=== PATIENT | female | born 1960 | race Caucasian/White ===

== ENCOUNTER 2023-05-06 11:17 | Outpatient (OUT) | payer MEDICARE, SELFPAY ==
[2023-05-06 11:58] LABS: Basophils Absolute Auto 0.1 10^3/uL (0.0-0.1); Basophils Percent Auto 1.5 % (0.2-2.0); Eosinophils Absolute Auto 0.2 10^3/uL (0.0-0.7); Hematocrit 38.2 % (36.0-48.0); Hemoglobin 12.7 g/dL (12.0-16.0); Immature Granulocytes Abs Auto 0.02 10^3/uL (0.00-0.03); Immature Granulocytes Pct Auto 0.3 % (0.0-0.5); Lymphocytes Absolute Auto 2.7 10^3/uL (1.2-3.8); Lymphocytes Percent Auto 34.3 % (20.5-60.0); Mean Corpuscular HGB Conc 33.2 g/dL (29.9-35.2); Mean Corpuscular Hemoglobin 29.8 pg (26.7-34.0); Mean Corpuscular Volume 89.7 fL (81.0-99.0); Monocytes Absolute Auto 0.5 10^3/uL (0.3-0.8); Monocytes Percent Auto 5.9 % (1.7-12.0); Neutrophils Absolute Auto 4.3 10^3/uL (1.4-6.5); Platelet Count 406 10^3/uL (150-450); Red Blood Count 4.26 10^6/uL (4.20-5.40); Red Cell Distribution Width 12.9 % (11.0-15.0); White Blood Count 7.8 10^3/uL (4.0-11.0)
[2023-05-06 13:51] LABS: Alanine Aminotransferase 28 U/L (14-59); Albumin Globulin Ratio 1.1; Albumin Level 4.1 g/dL (3.4-5.0); Alkaline Phosphatase 57 U/L (46-116); Anion Gap 12.1; Aspartate Amino Transferase 17 U/L (15-37); BUN Creatinine Ratio 12.8; Bilirubin Total 0.3 mg/dL (0.2-1.0); Calcium 9.6 mg/dL (8.5-10.1); Carbon Dioxide 29.1 mmol/L (21.0-32.0); Chloride 102 mmol/L (98-107); Chol HDL Ratio 3.7; Cholesterol 186 mg/dL (<=200); Estimated GFR (African America >60 (>=60); Estimated GFR (Non-African Ame >60 (>=60); Globulin 3.9 g/dL; Glucose 111 mg/dL (74-106); HDL Cholesterol 50 mg/dL (40-60); LDL Cholesterol Calculated 109.8 mg/dL; Potassium 4.2 mmol/L (3.5-5.1); Sodium 139 mmol/L (136-145); Triglycerides 131 mg/dL (<=150); VLDL CHOLESTEROL 26.2 mg/dL
== END 2023-05-06 11:18 | disposition home or self-care (01) ==
LOC: LAB 11:23
PROVIDERS: PCP Family Medicine; Visit Provider Family Medicine
DX: Z00.00 Encounter for general adult medical examination without abnormal findings (principal); G45.9 Transient cerebral ischemic attack, unspecified
CPT/HCPCS: 36415; 80053; 80061; 85025

== ENCOUNTER 2023-05-10 10:18 | Outpatient (OUT) | payer MEDICARE, SELFPAY ==
--- NOTE | 2023-05-10 10:21 | MM_ITS ---
Patient: ARLENE JACK Exam Date: 05/10/2023 : 1960 Gender:F Ordering : DR Mariluz Booker M.D. Admission #: [id number] Family : Order #: [id number] CLICK HERE TO VIEW EXAM RADIOLOGY REPORT PROCEDURE: MM TOMOSYNTHESIS SCREENING BI COMPARISON: MG MAMM SCREEN SHIRLEY W CAD, 09/23/2020. MG MAMM SCREEN 3D SHIRLEY CAD, 12/12/2021. INDICATIONS: Screening mammogram Z12.31 Calculator Name NCI Breast Cancer Risk Assessment Tool 5 Year Breast Cancer Risk 1.40% Lifetime Breast Cancer Risk 5.40% Personal Breast Cancer No Personal Ovarian Cancer No Treatments None Family Cancers None LOCATION: [facility] BREAST COMPOSITION: Heterogeneously dense,which may obscure small masses. FINDINGS: DIAGNOSTIC CATEGORY 2--BENIGN FINDING. NO CHANGE FROM COMPARISON. Scattered benign-appearing calcifications are present. Scattered benign-appearing lymph nodes are present. RIGHT BREAST: No significant suspicious finding. Stable micro clip marker upper inner quadrant LEFT BREAST: No significant suspicious finding. RECOMMENDATIONS: ROUTINE MAMMOGRAM AND CLINICAL EVALUATION IN 12 MONTHS. PLEASE NOTE: A NORMAL MAMMOGRAM DOES NOT EXCLUDE THE POSSIBILITY OF BREAST CANCER. A CLINICALLY SUSPICIOUS PALPABLE LUMP SHOULD BE BIOPSIED. Dictated by: Gary Johnson MD on 05/10/2023 at 11:26 Approved by: Gary Johnson MD on 05/10/2023 at 11:27
== END 2023-05-10 10:19 | disposition home or self-care (01) ==
PROVIDERS: PCP Family Medicine; Visit Provider Family Medicine
DX: Z12.31 Encounter for screening mammogram for malignant neoplasm of breast (principal)
CPT/HCPCS: 77063; 77067

== ENCOUNTER 2024-05-08 14:12 | Outpatient (OUT) | payer MEDICARE, SELFPAY ==
[2024-05-08 14:34] LABS: Basophils Absolute Auto 0.1 10^3/uL (0.0-0.1); Basophils Percent Auto 1.3 % (0.2-2.0); Eosinophils Absolute Auto 0.1 10^3/uL (0.0-0.7); Eosinophils Percent Auto 1.7 % (0.9-7.0); Hematocrit 37.5 % (36.0-48.0); Hemoglobin 12.3 g/dL (12.0-16.0); Immature Granulocytes Abs Auto 0.02 10^3/uL (0.00-0.03); Immature Granulocytes Pct Auto 0.3 % (0.0-0.5); Lymphocytes Absolute Auto 2.8 10^3/uL (1.2-3.8); Lymphocytes Percent Auto 39.1 % (20.5-60.0); Mean Corpuscular HGB Conc 32.8 g/dL (29.9-35.2); Mean Corpuscular Hemoglobin 29.4 pg (26.7-34.0); Mean Corpuscular Volume 89.7 fL (81.0-99.0); Mean Platelet Volume 9.3 fL (9.5-13.5); Monocytes Absolute Auto 0.5 10^3/uL (0.3-0.8); Monocytes Percent Auto 6.3 % (1.7-12.0); Neutrophils Absolute Auto 3.7 10^3/uL (1.4-6.5); Neutrophils Percent Auto 51.3 % (43.0-75.0); Platelet Count 335 10^3/uL (150-450); Red Blood Count 4.18 10^6/uL (4.20-5.40); Red Cell Distribution Width 13.2 % (11.0-15.0); White Blood Count 7.1 10^3/uL (4.0-11.0)
[2024-05-08 15:56] LABS: Alanine Aminotransferase 29 U/L (14-59); Albumin Level 3.9 g/dL (3.4-5.0); Alkaline Phosphatase 59 U/L (46-116); Anion Gap 8.4; Aspartate Amino Transferase 16 U/L (15-37); BUN Creatinine Ratio 16.7; Bilirubin Total 0.3 mg/dL (0.2-1.0); Calcium 9.4 mg/dL (8.5-10.1); Carbon Dioxide 30.2 mmol/L (21.0-32.0); Chloride 103 mmol/L (98-107); Estimated GFR (African America >60 (>=60); Estimated GFR (Non-African Ame >60 (>=60); Globulin 3.8 g/dL; Glucose 91 mg/dL (74-106); Potassium 3.6 mmol/L (3.5-5.1); Sodium 138 mmol/L (136-145); Total Protein 7.7 g/dL (6.4-8.2)
[2024-05-08 16:17] LABS: Estimated Average Glucose 114 mg/dL; Glycohemoglobin A1C 5.6 % (4.5-6.2)
== END 2024-05-08 14:13 | disposition home or self-care (01) ==
LOC: LAB 14:15
PROVIDERS: PCP Family Medicine; Visit Provider Family Medicine
DX: Z00.00 Encounter for general adult medical examination without abnormal findings (principal); R73.01 Impaired fasting glucose
CPT/HCPCS: 36415; 80053; 83036; 85025

== ENCOUNTER 2024-05-12 11:11 | Outpatient (OUT) | payer MEDICARE, SELFPAY ==
--- NOTE | 2024-05-12 11:14 | MM_ITS ---
Patient Name: ARLENE JACK MR#: [id number] : 1960 Exam Date: 05/12/2024 Ordering Doctor: DR Mariluz Booker M.D. RADIOLOGY REPORT PROCEDURE: MM TOMOSYNTHESIS SCREENING BI COMPARISON: MM TOMOSYNTHESIS SCREENING BI, 05/10/2023. MG MAMM SCREEN 3D SHIRLEY CAD, 12/12/2021. MG MAMM SCREEN SHIRLEY W CAD, 09/23/2020. MG MAMM SHIRLEY SCRN W CAD DIG, 09/12/2013. INDICATIONS: Screening Calculator Name NCI Breast Cancer Risk Assessment Tool 5 Year Breast Cancer Risk 1.40% Lifetime Breast Cancer Risk 5.20% Personal Breast Cancer No Personal Ovarian Cancer No Treatments None Family Cancers None LOCATION: [facility] BREAST COMPOSITION: The breasts are heterogeneously dense,which may obscure small masses. FINDINGS: DIAGNOSTIC CATEGORY 2--BENIGN FINDING: RIGHT BREAST: No significant suspicious finding. Stable biopsy marker clip. No significant change has occurred. LEFT BREAST: No significant suspicious finding. No significant change has occurred. RECOMMENDATIONS: ROUTINE MAMMOGRAM AND CLINICAL EVALUATION IN 12 MONTHS. PLEASE NOTE: A NORMAL MAMMOGRAM DOES NOT EXCLUDE THE POSSIBILITY OF BREAST CANCER. A CLINICALLY SUSPICIOUS PALPABLE LUMP SHOULD BE BIOPSIED. Dictated by: Narendra Desai M.D. on 05/12/2024 at 15:05 Approved by: Narendra Desai M.D. on 05/12/2024 at 15:09
== END 2024-05-12 11:12 | disposition home or self-care (01) ==
LOC: MAMMO 11:11
PROVIDERS: PCP Family Medicine; Visit Provider Family Medicine
DX: Z12.31 Encounter for screening mammogram for malignant neoplasm of breast (principal)
CPT/HCPCS: 77063; 77067

== ENCOUNTER 2024-11-09 12:24 | Outpatient (OUT) | payer MEDICARE, SELFPAY ==
--- OUTSIDE RECORDS SUMMARY | 2024-11-09 12:34 | XMS_ITS | CCD ---
Author Organization [facility] Care Team Providers Care Sales And Marketing Specialist Name Role Phone JOE, DR MARILUZ Buenrostro Primary Care Unavailable DIAZ, DR MARILUZ Buenrostro Consulting Unavailable DIAZ, DR MARILUZ Buenrostro Attending Unavailable DIAZ, DR MARILUZ Buenrostro Admitting Unavailable JACOBO, DR MCKEON Admitting Unavailable JACOBO, DR MCKEON Consulting Unavailable JACOBO, DR MCKEON Attending Unavailable DIAZ, DR MARILUZ Buenrostro Primary Care Unavailable DIAZ, DR MARILUZ Buenrostro Consulting Unavailable DIAZ, DR MARILUZ Buenrostro Attending Unavailable DIAZ, DR MARILUZ Buenrostro Admitting Unavailable DIAZ, DR MARILUZ Buenrostro Primary Care Unavailable DIAZ, DR MARILUZ Buenrostro Primary Care Unavailable DIAZ, DR MARILUZ Buenrostro Attending Unavailable DIAZ, DR MARILUZ Buenrostro Admitting Unavailable ZIEBER, DR NARENDRA Zelaya Consulting Unavailable DIAZ, DR MARILUZ Buenrostro Consulting Unavailable DIAZ, DR MARILUZ Buenrostro Primary Care Unavailable FLOWER, CLARISSA Consulting Unavailable FLOWER, CLARISSA Attending Unavailable ROSS, CLARISSA Admitting Unavailable JACOBO, DR MCKEON Admitting Unavailable JACOBO, DR MCKEON Consulting Unavailable JACOBO, DR MCKEON Attending Unavailable DIAZ, DR MARILUZ Buenrostro Primary Care Unavailable JACOBO, DR MCKEON Admitting Unavailable JACOBO, DR MCKEON Consulting Unavailable JACOBO, DR MCKEON Attending Unavailable DIAZ, DR MARILUZ Buenrostro Primary Care Unavailable DIAZ, DR MARILUZ Buenrostro Referring Unavailable JACOBO, DR MCKEON Consulting Unavailable JACOBO, DR MCKEON Attending Unavailable DIAZ, DR MARILUZ Buenrostro Primary Care Unavailable JACOBO, DR MCKEON Admitting Unavailable SHELBY MIX Consulting Unavailable Priyank Lloyd Unavailable Mariluz Diaz Unavailable MARILUZ DIAZ Primary Care Physician NORBERTO ANDERSEN Attending Mariluz Abrams MD Primary Care Provider [phone] MONSE CARDENAS Attending Unavailable Allergies Allergy Classification Reported Allergen(s) Allergy Type Date of Onset Reaction(s) Facility (1 source) No Known Medication Allergies; Translations: [No Known Medication Allergies] Propensity to adverse reactions (disorder) [facility] Repository Medications Current Medications Medication Drug Class(es) Dates Sig (Normalized) Sig (Original) azithromycin 250 mg oral tablet (5 sources) Macrolide Antimicrobial Start: 05-03-2023 Azithromycin 250 MG as directed Orally daily for 5 days Apr, Active fluticasone propionate 0.05 mg/actuat metered dose nasal spray (2 sources) Corticosteroid Start: 10-31-2024 fluticasone (Flonase) 50 MCG/ACT nasal spray Indications: ETD (Eustachian tube dysfunction), right 2 sprays on left twice daily. Shake gently. Before first use, prime pump. After use, clean tip and replace cap. 48 g 3 10/31/2024 Active Completed/Discontinued Medications Medication Drug Class(es) Dates Sig (Normalized) Sig (Original) terbinafine 250 mg oral tablet (3 sources) Allylamine Antifungal Start: 05-05-2024 End: 05-08-2024 take 1 tablet by mouth once daily Terbinafine Hcl Discontinued 1 TAB PO Daily May 05, 2024 12:00am May 08, 2024 1:26pm Free[employer]Si tablet Orally Once a day; Note: Source Status: Start; Provider: Joe Buenrostro Start: 06-16-2023 take 1 tablet by rocael th every twenty-four hours Terbinafine HCl 250 MG 1 tablet Orally Once a day for 10 day(s) May, Active Problems Active Problems Problem Classification Problem Date Documented Date Episodic/Chronic Chronic obstructive pulmonary disease and bronchiectasis (2 sources) Bronchitis, not specified as acute or chronic Episodic Diabetes mellitus without complication (2 sources) Hyperglycemia; Translations: [Impaired fasting glucose] 05-08-2024 Episodic Genitourinary symptoms and ill-defined conditions (12 sources) Stress incontinence (female) (male); Translations: [Urge incontinence] Onset: 01-24-2021 Chronic Genitourinary symptoms and ill-defined conditions (3 sources) Retention of urine, unspecified; Translations: [Incomplete emptying of bladder] Onset: 01-24-2021 06-06-2021 Episodic Menopausal disorders (3 sources) Postmenopausal atrophic vaginitis; Translations: [Atrophic vaginitis] Onset: 06-02-2021 Chronic Other circulatory disease (2 sources) Personal history of transient ischemic attack (TIA), and cerebral infarction without residual deficits; Translations: [PERS HX TIA AND CI NO RESID DEFICIT] Onset: 06-02-2021 Episodic Other diseases of bladder and urethra (2 sources) Urethral stricture; Translations: [Unspecified urethral stricture, female] Onset: 08-24-2023 Episodic Other ear and sense organ disorders (2 sources) Mixed conductive AND sensorineural hearing loss; Translations: [Mixed conductive and sensorineural hearing loss, unilateral, right ear with restricted hearing on the contralateral side] 10-31-2024 Chronic Other non-traumatic joint disorders (4 sources) Arthralgia of the lower leg; Translations: [Pain in left knee] Episodic Other screening for suspected conditions (not mental disorders or infectious disease) (8 sources) Encounter for screening mammogram for malignant neoplasm of breast; Translations: [Patient encounter status] Onset: 12-12-2021 Episodic Other upper respiratory infections (1 source) Acute maxillary sinusitis, unspecified Episodic Otitis media and related conditions (2 sources) Dysfunction of right eustachian tube; Translations: [Unspecified Eustachian tube disorder, right ear] 10-31-2024 Episodic Transient cerebral ischemia (7 sources) Transient cerebral ischemia; Translations: [Transient cerebral ischemic attack, unspecified] Chronic Unclassified (1 source) CONTACT W/AND (SUSP) EXPOS COVID-19; Translations: [CONTACT W/AND (SUSP) EXPOS COVID-19] Onset: 01-22-2021 Unclassified (1 source) Patient encounter status 05-08-2020 Past or Other Problems Problem Classification Problem Date Documented Da te Episodic/Chronic Contraceptive and procreative management (1 source) Tubal ligation status; Translations: [TUBAL LIGATION STATUS] Onset: 01-24-2021 Episodic Immunizations and screening for infectious disease (4 sources) Encounter for immunization; Translations: [ENCOUNTER FOR IMMUNIZATION] Onset: 08-15-2021 Episodic Other aftercare (1 source) [facility] (current) use of anticoagulants; Translations: [HEALTH SCIENCE SPECIALIST CURRNT USE ANTICOAGULANTS] Onset: 06-02-2021 Episodic Other diseases of bladder and urethra (1 source) Unspecified urethral stricture, female; Translations: [UNSP URETHRAL STRICTURE FEMALE] Onset: 06-02-2021 Episodic Residual codes; unclassified (1 source) Acquired absence of other specified parts of digestive tract; Translations: [ACQ ABSENCE OTH PART DIGESTV TRACT] Onset: 06-02-2021 Episodic Screening and history of mental health and substance abuse codes (1 source) Personal history of nicotine dependence; Translations: [PERSONAL HISTORY OF NICOTINE DEPEND] Onset: 06-02-2021 Episodic Results Test Name Value Interpretation Reference Range Facility Basophils Auto (Bld) [#/Vol] on 05-08-2024 Basophils (Bld) [#/Vol] 0.1 10 3/uL 0.0-0.1 [facility] Basophils/100 WBC Auto (Bld) on 05-08-2024 Basophils/100 WBC (Bld) 1.3 % 0.2-2.0 [facility] Eosinophils/100 WBC Auto (Bl d)on 05-08-2024 Eosinophils/100 WBC (Bld) 1.7 % 0.9-7.0 [facility] Erythrocyte distribution wid th Auto (RBC) [Ratio]on 05-08-2024 Erythrocyte distribution width (RBC) [Ratio] 13.2 % 11.0-15.0 [facility] Hematocrit Auto (Bld) [Volum e fraction]on 05-08-2024 Hematocrit (Bld) [Volume fraction] 37.5 % 36.0-48.0 [facility] Hemoglobin [Mass/volume] in Bloodon 05-08-2024 Hemoglobin (Bld) [Mass/Vol] 12.3 g/dL 12.0-16.0 [facility] Laboratory - Hematology and Cell countson 05-08-2024 Immature granulocytes/100 WBC (Bld) 0.3 % 0.0-0.5 [facility] Leukocytes [#/volume] correc jailyn for nucleated erythrocytes in Blood by Automated counon 05-08-2024 WBC corrected for nucl RBC Auto (Bld) [#/Vol] 7.1 10 3/uL 4.0-11.0 [facility] Lymphocytes Auto (Bld) [#/Vo l]on 05-08-2024 Lymphocytes (Bld) [#/Vol] 2.8 10 3/uL 1.2-3.8 [facility] Lymphocytes/100 WBC Auto (Bl d)on 05-08-2024 Lymphocytes/100 WBC (Bld) 39.1 % 20.5-60.0 [facility] MCH Auto (RBC) [Entitic mass ]on 05-08-2024 MCH (RBC) [Entitic mass] 29.4 pg 26.7-34.0 [facility] MCHC Auto (RBC) [Mass/Vol]on 05-08-2024 MCHC (RBC) [Mass/Vol] 32.8 g/dL 29.9-35.2 [facility] MCV Auto (RBC) [Entitic vol] on 05-08-2024 MCV (RBC) [Entitic vol] 89.7 fL 81.0-99.0 [facility] Monocytes Auto (Bld) [#/Vol] on 05-08-2024 Monocytes (Bld) [#/Vol] 0.5 10 3/uL 0.3-0.8 [facility] Monocytes/100 WBC Auto (Bld) on 05-08-2024 Monocytes/100 WBC (Bld) 6.3 % 1.7-12.0 [facility] Neutrophils Auto (Bld) [#/Vo l]on 05-08-2024 Neutrophils (Bld) [#/Vol] 3.7 10 3/uL 1.4-6.5 [facility] Neutrophils/100 WBC Auto (Bl d)on 05-08-2024 Neutrophils/100 WBC (Bld) 51.3 % 43.0-75.0 [facility] No Panel Informationon 05-08 Eosinophils # (Auto) 0.1 10 3/uL 0.0-0.7 [facility] Immature Granulocyte # (Auto) 0.02 10 3/uL 0.00-0.03 [facility] Platelet mean volume Auto (B ld) [Entitic vol]on 05-08-2024 Platelet mean volume (Bld) [Entitic vol] 9.3 fL Low 9.5-13.5 [facility] Platelets Auto (Bld) [#/Vol] on 05-08-2024 Platelets (Bld) [#/Vol] 335 10 3/uL 150-450 [facility] RBC Auto (Bld) [#/Vol]on RBC (Bld) [#/Vol] 4.18 10 6/uL Low 4.20-5.40 [facility] Screenson 08-25-2023 Screens [id number] Normal Andre [facility] Ambulatory Visit Summaryon 1 Ambulatory Visit Summary ARLENE JACK :1960 Visit Date:08/24/2023 Ambulatory Visit Instructions Your Diagnosis Unspecified urethral stricture, female Atrophic vaginitis Stress incontinence Tests Performed Urnls Dip Stick Auto w/o Microscopy POC [id number] Your Care Team Attending Physician - STEFFANY ANDERSEN PA-C Primary Care Physician - MARILUZ DIAZ MD This Is Your Medications List [Image Removed: STOP]Stop taking these medications estradiol topical (Estrace Vaginal Cream 0.1 mg/g) Procedures Performed Suspension of bladder (05/29/2021), Cystourethroscopy with dilation of urethral stricture (01/20/2021), Colonoscopy (10/25/2013), Appendectomy, Bilateral tubal ligation, Cholecystectomy. Discharge Vitals Heart Rate (Peripheral) 68 Respiratory Rate 16 Blood Pressure 138/74 Height 157 cm Height 62 in Weight 68.5 kg Weight 150.7 lb BMI 27.79 What to do next You Need to Schedule the Following Appointments Follow Up with STEFFANY ANDERSEN PA-C, URL When: Only if needed Where: [address] [facility] [place] [id number] Medications What How Much When Comments Stop Taking estradiol topical (Estrace Vaginal Cream 0.1 mg/ g) 1 Gram Vaginal Wednesday & Wednesday Test Results Urnls Dip Stick Auto w/o Microscopy POC 81104 (08/24/2023) Bilirubin Urine Dipstick - Negative Blood Urine Dipstick - Negative Glucose Urine Dipstick - Negative Ketones Urine Dipstick - Negative Leukocytes Urine Dipstick - Negative Nitrite Urine Dipstick - Negative Protein Urine Dipstick - Negative Specific Noble Urine Dipstick - 1.015 Urine Appearance Urine Dipstick - Clear Urine Color Urine Dipstick - Yellow Urobilinogen Urine Dipstick - Normal 0.2-1 EU/dl pH Urine Dipstick - 6 Allergies No Known Allergies No Known Medication Allergies Problems Ongoing - Any problem that you are currently receiving treatment for. Atrophic vaginitis Incomplete bladder emptying Screening for malignant neoplasm of colon Stress incontinence TIA (transient ischemic attack) Unspecified urethral stricture, female Urgency of urination Historical - Any problem that you are no longer receiving treatment for. TIA Patient Survey You may receive a survey via text or e-mail asking about your office visit. Please share your experience with us by completing your survey. We appreciate your feedback and thank you for choosing us for your care. Education Materials Urethral Stricture Urethral stricture is narrowing of the tube (urethra) that carries urine from the bladder out of the body. The urethra can become narrow due to scar tissue from an injury or infection. This can make it difficult to pass urine. In women, the urethra opens above the vaginal opening. In men, the urethra opens at the tip of the penis, and the urethra is much longer than it is in women. Because of the length of the male urethra, urethral stricture is much more common in men. This condition is treated with surgery. What are the causes? In both men and women, common causes of urethral stricture include: ? Urinary tract infection (UTI). ? Sexually transmitted infection (STI). ? Use of a tube placed into the urethra to drain urine from the bladder (urinary catheter). ? Urinary tract surgery. In men, common causes of urethral stricture include: ? A severe injury to the pelvis. ? Prostate surgery. ? Injury to the penis. In many cases, the cause of urethral stricture is not known. What increases the risk? You are more likely to develop this condition if you: ? Are male. Men who have had prostate surgery are at risk of developing this condition. ? Use a urinary catheter. ? Have had urinary tract surgery. What are the signs or symptoms? The main symptom of this condition is difficulty passing urine. This may cause decreased urine flow, dribbling, or spraying of urine. Other symptom of this condition may include: ? Frequent UTIs. ? Blood in the urine. ? Pain when urinating. ? Swelling of the penis in men. ? Inability to pass urine (urinary obstruction). How is this diagnosed? This condition may be diagnosed based on: ? Your medical history and a physical exam. ? Urine tests to check for infection or bleeding. ? X-rays. ? Ultrasound. ? Retrograde urethrogram. This is a type of test in which dye is injected into the urethra and then an X-ray is taken. ? Urethroscopy. This is when a thin tube with a light and camera on the end (urethroscope) is used to look at the urethra. How is this treated? This condition is treated with surgery. The type of surgery that you have depends on the severity of your condition. You may have: ? Urethral dilation. In this procedure, the narrow part of the urethra is stretched open (dilated) with dilating instruments or a small balloon. ? Urethrotomy. In this procedure, a urethro (more content not included)... Normal [facility] Patient Educationon 08-24-20 Patient Education Urology Urethral Stricture Urethral stricture is narrowing of the tube (urethra) that carries urine from the bladder out of the body. The urethra can become narrow due to scar tissue from an injury or infection. This can make it difficult to pass urine. In women, the urethra opens above the vaginal opening. In men, the urethra opens at the tip of the penis, and the urethra is much longer than it is in women. Because of the length of the male urethra, urethral stricture is much more common in men. This condition is treated with surgery. What are the causes? In both men and women, common causes of urethral stricture include: ? Urinary tract infection (UTI). ? Sexually transmitted infection (STI). ? Use of a tube placed into the urethra to drain urine from the bladder (urinary catheter). ? Urinary tract surgery. In men, common causes of urethral stricture include: ? A severe injury to the pelvis. ? Prostate surgery. ? Injury to the penis. In many cases, the cause of urethral stricture is not known. What increases the risk? You are more likely to develop this condition if you: ? Are male. Men who have had prostate surgery are at risk of developing this condition. ? Use a urinary catheter. ? Have had urinary tract surgery. What are the signs or symptoms? The main symptom of this condition is difficulty passing urine. This may cause decreased urine flow, dribbling, or spraying of urine. Other symptom of this condition may include: ? Frequent UTIs. ? Blood in the urine. ? Pain when urinating. ? Swelling of the penis in men. ? Inability to pass urine (urinary obstruction). How is this diagnosed? This condition may be diagnosed based on: ? Your medical history and a physical exam. ? Urine tests to check for infection or bleeding. ? X-rays. ? Ultrasound. ? Retrograde urethrogram. This is a type of test in which dye is injected into the urethra and then an X-ray is taken. ? Urethroscopy. This is when a thin tube with a light and camera on the end (urethroscope) is used to look at the urethra. How is this treated? This condition is treated with surgery. The type of surgery that you have depends on the severity of your condition. You may have: ? Urethral dilation. In this procedure, the narrow part of the urethra is stretched open (dilated) with dilating instruments or a small balloon. ? Urethrotomy. In this procedure, a urethroscope is placed into the urethra, and the narrow part of the urethra is cut open with a surgical blade inserted through the urethroscope. ? Open surgery. In this procedure, an incision is made in the urethra, the narrow part is removed, and the urethra is reconstructed. Follow these instructions at home: ? Take dkvi-ntg-nfbysbv and prescription medicines only as told by your health care provider. ? If you were prescribed an antibiotic medicine, take it as told by your health care provider. Do not stop taking the antibiotic even if you start to feel better. ? Drink enough fluid to keep your urine pale yellow. ? Keep all follow-up visits as told by your health care provider. This is important. Contact a health care provider if: ? You have signs of a urinary tract infection, such as: ? Frequent urination or passing small amounts of urine frequently. ? Needing to urinate urgently. ? Pain or burning with urination. ? Urine that smells bad or unusual. ? Cloudy urine. ? Pain in the lower abdomen or back. ? Trouble urinating. ? Blood in the urine. ? Vomiting or being less hungry than normal. ? Diarrhea or abdominal pain. ? Vaginal discharge, if you are female. ? Your symptoms are getting worse instead of better. Get help right away if: ? You cannot pass urine. ? You have a fever. ? You have swelling, bruising, or discoloration of your genital area. This includes the penis, scrotum, and inner thighs for men, and the outer genital organs (vulva) and inner thighs for women. ? You develop swelling in your legs. ? You have difficulty breathing. Summary ? Urethral stricture is narrowing of the tube (urethra) that carries urine from the bladder out of the body. The urethra can become narrow due to scar tissue from an injury or infection. ? This condition can make it difficult to pass urine. ? This condition is treated with surgery. The type of surgery that you have depends on the severity of your condition. ? Contact a health care provider if your symptoms get worse or you have signs of a urinary tract infection. This information is not intended to replace advice given to you by your health care provider. Make sure you discuss any questions you have with your health care provider. Document Revised: 08/18/2022 Document Reviewed: 08/18/2022 [email or web address] Patient Education ? 2022 [employer]. [facility] Urology Office/Clinic Noteon 08-24-2023 Urology Office/Clinic Note Chief Complaint 18m f/u HPI Staff PRW pt 9m Previous DX: Incomplete Bladder Emptying, Stress Incontinence, Urethral Stricture, Atrophic Vaginitis & Urgency *Estrace Cream 3x/wk- pt no longer taking, states she wasn't sure why she was taking it to begin with, and also due to cost. Denies leaking since sling surgery in 2020. Denies UTI since last encounter. Occasional weak, smaller, double voids first thing in the morning. Improves as day goes on. Concentrates to try and empty fully. Denies any further urinary concerns at this time. PVR 12ml History of Present Illness staff HPI reviewed and agree. Review of Systems PHQ Score Initial Depression Screen Score: 0 no fever, chills, malaise, myalgia. no rash/lesions. no chest pain, palpitations, or SOB. no abdominal pain, nausea, vomiting. no unilateral calf swelling, redness, pain Physical Exam Vitals & Measurements HR: 68(Peripheral) RR: 16 BP: 138/74 HT: 62 in HT: 157 cm WT: 68.5 kg WT: 150.7 lb BMI: 27.79 General: nontoxic, NAD Mouth: moist mucosa Lungs: normal respiratory effort Cardio: regular rate, good distal perfusion Abdomen: nondistended, no suprapubic distention or tenderness, no CVA tenderness Neurologic: Grossly normal Skin: No rashes or suspicious lesions Assessment/Plan Dr. Jacobo pt. 1. Unspecified urethral stricture, female (N35.92: Unspecified urethral stricture, female) S/P UD 01/20/21 and 05/29/21, Pt does not want to repeat w/o general anesthesia. BBS 9. Pt reports frequency, start/stop in the mornings but it does get better throughout the day. Not bothersome to patient. PVR 08/13/2021 199mL, after double void PVR 78mL. 11/13/2021 36mL after double void 08/24/2023 12mL Educated patient to call if symptoms become more bothersome to discuss dilation treatment in the future. 2. Atrophic vaginitis (N95.2: Postmenopausal atrophic vaginitis) No hx frequent UTIs. UA today negative for blood or infection. Pt has discontinued using estrogen cream but no UTIs recently. no dysperunia. Continue cranberry, probiotics, and D-Mannose to reduce risk of UTIs. 3. Stress incontinence (N39.3: Stress incontinence (female) (male)) S/P sling placement 05/29/21. sx have resolved. Follow up if needed. Pt understands and agrees with plan. Follow-up With When Contact Information STEFFANY ANDERSEN PA-C, URL Only if needed [address] [place] [address] [phone] Additional Instructions: Patient Education Urethral Stricture Documentation recorded by the buffy Queen accurately reflects the services(s) I performed and decisions made by me. Authenticated by Steffany Andersen PA-C on 08/24/2023 11:50:55. IAshely, personally scribed for Steffany Andersen PA-C on 08/24/2023 11:35:47. . Problem List/Past Medical History Ongoing Atrophic vaginitis Incomplete bladder emptying Screening for malignant neoplasm of colon Stress incontinence TIA (transient ischemic attack) Unspecified urethral stricture, female Urgency of urination Historical TIA Procedure/Surgical History Suspension of bladder (05/29/2021), Cystourethroscopy with dilation of urethral stricture (01/20/2021), Colonoscopy (10/25/2013), Appendectomy, Bilateral tubal ligation, Cholecystectomy. Medications Estrace Vaginal Cream 0.1 mg/g, 1 gm, Vaginal, MonFri, 5 refills, Not taking Allergies No Known Allergies No Known Medication Allergies Social History Alcohol - Denies Alcohol Use, 05/08/2020 Substance Abuse - Denies Substance Abuse, 05/08/2020 Tobacco - Denies Tobacco Use, 06/06/2021 Former smoker, quit more than 30 days ago Tobacco Use:. Never Smokeless Tobacco Use:. Cigarettes, Household tobacco concerns: No. Yes, 08/24/2023 Family History Diabetes mellitus type 2: Mother. Heart disease: Mother. Hyperlipidemia: Mother. Hypertension: Mother. Primary malignant neoplasm of bone: Father. Primary malignant neoplasm of colon: Father. Primary malignant neoplasm of prostate: Father. Stroke: Mother. Immunizations Vaccine Date Status SARS-CoV-2 (COVID-19) mRNA-1273 vaccine 08/15/2021 Recorded SARS-CoV-2 (COVID-19) mRNA-1273 vaccine 11/20/2020 Recorded SARS-CoV-2 (COVID-19) mRNA-1273 vaccine 11/11/2020 Recorded SARS-CoV-2 (COVID-19) mRNA-1273 vaccine 10/23/2020 Recorded SARS-CoV-2 (COVID-19) mRNA-1273 vaccine 10/22/2020 Recorded influenza virus vaccine, inactivated 09/07/2018 Recorded Lab Results Ambulatory Point of Care Results Bilirubin Urine Dipstick: Negative (08/24/23 10:55:00) Blood Urine Dipstick: Negative (08/24/23 10:55:00) Glucose Urine Dipstick: Negative (08/24/23 10:55:00) Ketones Urine Dipstick: Negative (08/24/23 10:55:00) Leukocytes Urine Dipstick: Negative (08/24/23 10:55:00) Nitrite Urine Dipstick: Negative (08/24/23 10:55:00) Protein Urine Dipstick: Negative (08/24/23 10:55:00) Specific Noble Urine Dipstick: (more content not included)... Normal [facility] Comment on above: Result Comment: Elec tronically Signed By: STEFFANY ANDERSEN PA-C\.br\Date and Time Signed: 08/24/23 11:51 EDT\.br\Electronically Co-Signed By: Ashely Queen\.nimesh\Date and Time Co-Signed: 08/24/23 11:36 EDT MG MAMM SCREEN 3D SHIRLEY CADon 12-12-2021 MG MAMM SCREEN 3D SHIRLEY CAD Patient: ARLENE JACK Exam Date: 12/12/2021 : 1960 Gender:F Ordering : DR MARILUZ DIAZ M.D. Admission #: [id number] Family : Order #: [id number] CLICK HERE TO VIEW EXAM RADIOLOGY REPORT PROCEDURE: MAMMOGRAM SCREENING 3D BILATERAL CAD COMPARISON: MG MAMM SCREEN SHIRLEY W CAD, 09/23/2020. MG MAMM RT DIAG FU, 09/13/2019. INDICATIONS: Screening mammography Calculator Name NCI Breast Cancer Risk Assessment Tool 5 Year Breast Cancer Risk 1.30% Lifetime Breast Cancer Risk 5.70% Personal Breast Cancer No Personal Ovarian Cancer No Treatments None Family Cancers None LOCATION: [facility] BREAST COMPOSITION: Heterogeneously dense,which may obscure small masses. FINDINGS: DIAGNOSTIC CATEGORY 2--BENIGN FINDING: RIGHT BREAST: No significant suspicious finding. Stable biopsy marker clip within the upper inner quadrant, central breast. No significant change has occurred. LEFT BREAST: No significant suspicious finding. No significant change has occurred. RECOMMENDATIONS: ROUTINE MAMMOGRAM AND CLINICAL EVALUATION IN 12 MONTHS. PLEASE NOTE: A NORMAL MAMMOGRAM DOES NOT EXCLUDE THE POSSIBILITY OF BREAST CANCER. A CLINICALLY SUSPICIOUS PALPABLE LUMP SHOULD BE BIOPSIED. Dictated by: Narendra Desai M.D. on 12/12/2021 at 13:00 Approved by: Narendra Desai M.D. on 12/12/2021 at 13:[address] [facility] CBC AUTO DIFFon 12-11-2021 BASO # 0.1 103/ul Normal 0.0-0.[address] [facility] Comment on above: Performed By: #### C BC #### [facility] [address] [address] [address] Chasity Gonzalez Basophils/100 WBC (Bld) 1.4 % Normal 0.2-2.0 [facility] Comment on above: Performed By: #### C BC #### [facility] [address] [address] [address] Chasity Gonzalez EO # 0.1 103/ul Normal 0.0-0.[address] [facility] Comment on above: Performed By: #### C BC #### [facility] [address] [place] [address] Dr. Chasity Gonzalez Eosinophils/100 WBC (Bld) 1.9 % Normal 0.9-7.0 [facility] Comment on above: Performed By: #### C BC #### [facility] [address] [place] [address] Dr. Chasity Gonzalez Erythrocyte distribution width (RBC) [Ratio] 12.6 % Normal 11.0-15.0 [facility] Comment on above: Performed By: #### C BC #### [facility] [address] [place] [address] Dr. Chasity Gonzalez Hematocrit (Bld) [Volume fraction] 40.7 % Normal 36.0-48.0 [facility] Comment on above: Performed By: #### C BC #### [facility] [address] [place] [address] Dr. Chasity Gonzalez Hemoglobin (Bld) [Mass/Vol] 13.3 g/dL Normal 12.0-16.0 [facility] Comment on above: Performed By: #### C BC #### [facility] [address] [place] [address] Dr. Chasity Gonzalez IG # 0.01 10e3/ul Normal 0.00-0.[address] [facility] Comment on above: Performed By: #### C BC #### [facility] [address] [place] [address] Dr. Chasity Gonzalez IG % 0.2 % Normal 0.0-0.[address] [facility] Comment on above: Performed By: #### C BC #### [facility] [address] [place] [address] Dr. Chasity Gonzalez LYMPH # 2.5 103/ul Normal 1.2-3.[address] [facility] Comment on above: Performed By: #### C BC #### [facility] [address] [place] [address] Dr. Chasity Gonzalez Lymphocytes/100 WBC (Bld) 44.3 % Normal 20.5-60.0 [facility] Comment on above: Performed By: #### C BC #### [facility] [address] [place] [address] Dr. Chasity Gonzalez MANUAL DIFF REQ NO Normal [facility] Comment on above: Performed By: #### C BC #### [facility] [address] [place] [address] Dr. Chasity Gonzalez MCH (RBC) [Entitic mass] 29.0 pg Normal 26.7-34.0 [facility] Comment on above: Performed By: #### C BC #### [facility] [address] [place] [address] Dr. Chasity Gonzalez MCHC (RBC) [Mass/Vol] 32.7 g/dL Normal 29.9-35.2 [facility] Comment on above: Performed By: #### C BC #### [facility] [address] [place] [address] Dr. Chasity Gonzalez MCV (RBC) [Entitic vol] 88.9 fL Normal 81.0-99.0 [facility] Comment on above: Performed By: #### C BC #### [facility] [address] [place] [address] Dr. Chasity Gonzalez MONO # 0.3 103/ul Normal 0.3-0.8 [facility] Comment on above: Performed By: #### C BC #### [facility] [address] [place] [address] Dr. Chasity Gonzalez Monocytes/100 WBC (Bld) 5.8 % Normal 1.7-12.0 [facility] Comment on above: Performed By: #### C BC #### [facility] [address] [place] [address] Dr. Chasity Gonzalez NEUT # 2.6 103/ul Normal 1.4-6.5 [facility] Comment on above: Performed By: #### C BC #### [facility] [address] [place] [address] Dr. Chasity Gonzalez Neutrophils/100 WBC (Bld) 46.4 % Normal 43.0-75.0 [facility] Comment on above: Performed By: #### C BC #### [facility] [address] [address] [address] Chasity Gonzalez Platelet mean volume (Bld) [Entitic vol] 9.3 fL Critically low 9.5-13.5 [facility] Comment on above: Performed By: #### C BC #### [facility] [address] [address] [address] Chasity Gonzalez PLT 345 103/ul Normal 150-450 [facility] Comment on above: Performed By: #### C BC #### [facility] [address] [address] [address] Chasity Gonzalez RBC 4.58 106/ul Normal 4.20-5.40 [facility] Comment on above: Performed By: #### C BC #### [facility] [address] [address] [address] Chasity Gonzalez WBC 5.7 103/ul Normal 4.0-11.0 [facility] Comment on above: Performed By: #### C BC #### [facility] [address] [address] [address] Chasity Gonzalez GLYCOHEMOGLOBIN A1Con 2021 ADA RECOMMENDATION ADA THERAPEUTIC TARG ET 6.0 - 7.0 ACTION SUGGESTED > 7.0 Normal [facility] Comment on above: Performed By: #### A 1C #### [facility] [address] [address] [address] Chasity Gonzalez Glucose [Mass/Vol] 123 mg/dL Normal [facility] Comment on above: Performed By: #### A 1C #### [facility] [address] [address] [address] Chasity Gonzalez HbA1c (Bld) [Mass fraction] 5.9 % Normal <=6.0 [facility] Comment on above: Performed By: #### A 1C #### [facility] [address] [place] [address] Dr. Chasity Gonzalez LIPID PROFILEon 12-11-2021 CHOL-HDL RATIO NORM SEE BELOW Normal [facility] Comment on above: Result Comment: 3.3 - 4.4 LOW RISK 4.4 - 7.1 AVERAGE RISK 7.1 - 11.0 MODERATE RISK >11.0 HIGH RISK Performed By: #### C MP, LIPID, TSH #### [facility] [address] [address] [address] Chasity Gonzalez Cholesterol [Mass/Vol] 206 mg/dL Critically high <=[address] [facility] Comment on above: Performed By: #### C MP, LIPID, TSH #### [facility] [address] [address] [address] Chasity Gonzalez Cholesterol in HDL [Mass/Vol] 57 mg/dL Normal [facility] Comment on above: Performed By: #### C MP, LIPID, TSH #### [facility] [address] [address] [address] Chasity Gonzalez Cholesterol in LDL [Mass/Vol] 129.6 mg/dL Normal [facility] Comment on above: Performed By: #### C MP, LIPID, TSH #### [facility] [address] [address] [address] Chasity Gonzalez Cholesterol.total/Ch olesterol in HDL [Mass ratio] 3.6 {ratio} Normal [facility] Comment on above: Performed By: #### C MP, LIPID, TSH #### [facility] [address] [address] [address] Chasity Gonzalez HDL NORMAL > or = 60 mg/dl - LO W CARDIOVASCULAR RISK <40 mg/dl - HIGH CARDIOVASCULAR RISK Normal [facility] Comment on above: Performed By: #### C MP, LIPID, TSH #### [facility] [address] [address] [address] Chasity Gonzalez LDL CALC NORMAL SEE BELOW Normal [facility] Comment on above: Result Comment: <100 mg/dl OPTIMAL 100 - 129 mg/dl NEAR OR ABOVE OPTIMAL 130 - 159 mg/dl BORDERLINE HIGH 160 - 189 mg/dl HIGH >190 mg/dl VERY HIGH Performed By: #### C MP, LIPID, TSH #### [facility] [address] [address] [address] Chasity Gonzalez Triglyceride [Mass/Vol] 97 mg/dL Normal <=150 [facility] Comment on above: Performed By: #### C MP, LIPID, TSH #### [facility] [address] [place] [address] Dr. Chasity Gonzalez VLDL CALC 19.4 mg/dL Normal [facility] Comment on above: Performed By: #### C MP, LIPID, TSH #### [facility] [address] [place] [address] Dr. Chasity Gonzalez PROF 14(COMP METB)on 022 Albumin [Mass/Vol] 4.3 g/dL Normal 3.5-5.0 [facility] Comment on above: Performed By: #### C MP, LIPID, TSH #### [facility] [address] [place] [address] Dr. Chasity Gonzalez Albumin/Globulin [Mass ratio] 1.1 {ratio} Normal [facility] Comment on above: Performed By: #### C MP, LIPID, TSH #### [facility] [address] [place] [address] Dr. Chasity Gonzalez ALP [Catalytic activity/Vol] 55 U/L Normal 38-126 [facility] Comment on above: Performed By: #### C MP, LIPID, TSH #### [facility] [address] [place] [address] Dr. Chasity Gonzalez ALT [Catalytic activity/Vol] 28 U/L Normal 9-52 [facility] Comment on above: Performed By: #### C MP, LIPID, TSH #### [facility] [address] [place] [address] Dr. Chasity Gonzalez Anion gap [Moles/Vol] 13.7 mmol/L Normal [facility] Comment on above: Performed By: #### C MP, LIPID, TSH #### [facility] [address] [place] [address] Dr. Chasity Gonzalez AST [Catalytic activity/Vol] 19 U/L Normal 14-36 [facility] Comment on above: Performed By: #### C MP, LIPID, TSH #### [facility] [address] [place] [address] Dr. Chasity Gonzalez Bilirubin [Mass/Vol] 0.5 mg/dL Normal 0.2-1.[address] [facility] Comment on above: Performed By: #### C MP, LIPID, TSH #### [facility] [address] [address] [address] Chasity Gonzalez Calcium [Mass/Vol] 9.4 mg/dL Normal 8.4-10.2 [facility] Comment on above: Performed By: #### C MP, LIPID, TSH #### [facility] [address] [place] [address] Dr. Chasity Gonzalez Chloride [Moles/Vol] 104 mmol/L Normal 98-107 [facility] Comment on above: Performed By: #### C MP, LIPID, TSH #### [facility] [address] [place] [address] Dr. Chasity Gonzalez CO2 [Moles/Vol] 27.7 mmol/L Normal 22.0-30.0 [facility] Comment on above: Performed By: #### C MP, LIPID, TSH #### [facility] [address] [place] [address] Dr. Chasity Gonzalez Creatinine [Mass/Vol] 0.73 mg/dL Normal 0.52-1.04 [facility] Comment on above: Performed By: #### C MP, LIPID, TSH #### [facility] [address] [place] [address] Dr. Chasity Gonzalez EGFR-AF SAMOAN >60 Normal >=60 [facility] Comment on above: Performed By: #### C MP, LIPID, TSH #### [facility] [address] [place] [address] Dr. Chasity Gonzalez EGFR-NON AF SAMOAN >60 Normal >=60 [facility] Comment on above: Performed By: #### C MP, LIPID, TSH #### [facility] [address] [place] [address] Dr. Chasity Gonzalez Globulin (S) [Mass/Vol] 3.8 g/dL Normal [facility] Comment on above: Performed By: #### C MP, LIPID, TSH #### [facility] [address] [address] [address] Chasity Gonzalez Glucose [Mass/Vol] 98 mg/dL Normal 74-106 [facility] Comment on above: Performed By: #### C MP, LIPID, TSH #### [facility] [address] [place] [address] Dr. Chasity Gonzalez Potassium [Moles/Vol] 4.4 mmol/L Normal 3.4-5.0 [facility] Comment on above: Performed By: #### C MP, LIPID, TSH #### [facility] [address] [place] [address] Dr. Chasity Gonzalez Protein [Mass/Vol] 8.1 g/dL Normal 6.1-8.2 [facility] Comment on above: Performed By: #### C MP, LIPID, TSH #### [facility] [address] [place] [address] Dr. Chasity Gonzalez Sodium [Moles/Vol] 141 mmol/L Normal 137-145 [facility] Comment on above: Performed By: #### C MP, LIPID, TSH #### [facility] [address] [place] [address] Dr. Chasity Gonzalez Urea nitrogen [Mass/Vol] 16.0 mg/dL Normal 7.0-17.0 [facility] Comment on above: Performed By: #### C MP, LIPID, TSH #### [facility] [address] [place] [address] Dr. Chasity Gonzalez Urea nitrogen/Creatinine [Mass ratio] 21.9 mg/mg Normal [facility] Comment on above: Performed By: #### C MP, LIPID, TSH #### [facility] [address] [place] [address] Dr. Chasity Gonzalez TSHon 12-11-2021 TSH 2.617 uIU/mL Normal 0.470-4.680 [facility] Comment on above: Performed By: #### C MP, LIPID, TSH #### [facility] [address] [place] [address] Dr. Chasity Gonzalez TSH RANGE SEE BELOW Normal [facility] Comment on above: Result Comment: <0.3 4 UIU/ml HYPERTHYROID 0.34-5.60 UIU/ml EUTHYROID >5.60 UIU/ml HYPOTHYROID Performed By: #### C MP, LIPID, TSH #### [facility] [address] [place], [place] [id number] Dr. Chasity Gonzalez CULTURE URINEon 05-19-2021 CULTURE URINE Culture Observations : NO GROWTH. Normal [facility] Comment on above: Performed By: #### U RCX #### [facility] [address] [place], [place] [id number] Anthony Hazel PROTIMEon 05-19-2021 INR Coag (PPP) [Relative time] 0.95 {INR} Normal [facility] Comment on above: Performed By: #### C BC #### [facility] [address] [place] [address] Anthonygaviota Hazel INR GUIDELINES SEE BELOW Normal [facility] Comment on above: Result Comment: WOLF RED INR: 2.0 - 3.0 CONDITIONS NOT LISTED BELOW 2.5 - 3.5 FOR PROSTHETIC HEART VALVE REPLACEMENT 2.5 - 3.5 RECURRENT THROMBOSIS Performed By: #### C BC #### [facility] [address] [place], [place] [id number] Anthony Hazel PT Coag (PPP) [Time] 10.3 s Normal 9.0-11.6 [facility] Comment on above: Performed By: #### C BC #### [facility] [address] [place], [place] [id number] Anthony Yasemin PTTon 05-19-2021 aPTT Coag (Bld) [Time] 26.8 s Normal 22.3-36.2 [facility] Comment on above: Performed By: #### C BC #### [facility] [address] [place], [place] [id number] Anthonygaviota Hazel CBC AUTO DIFFon 05-02-2021 BASO # 0.1 103/ul Normal 0.0-0.1 [facility] Comment on above: Performed By: #### C BC #### [facility] [address] [place], [place] [id number] Anthony Yasemin Basophils/100 WBC (Bld) 1.7 % Normal 0.2-2.0 [facility] Comment on above: Performed By: #### C BC #### [facility] [address] [place] [address] Anthony Yasemin EO # 0.3 103/ul Normal 0.0-0.7 [facility] Comment on above: Performed By: #### C BC #### [facility] [address] [place], [place] [id number] Anthony Yasemin Eosinophils/100 WBC (Bld) 4.6 % Normal 0.9-7.0 [facility] Comment on above: Performed By: #### C BC #### [facility] [address] [place] [address] Anthony Yasemin Erythrocyte distribution width (RBC) [Ratio] 12.8 % Normal 11.0-15.0 [facility] Comment on above: Performed By: #### C BC #### [facility] [address] [place] [address] Anthony Yasemin Hematocrit (Bld) [Volume fraction] 40.3 % Normal 36.0-48.0 [facility] Comment on above: Performed By: #### C BC #### [facility] [address] [place] [address] Anthony Yasemin Hemoglobin (Bld) [Mass/Vol] 13.2 g/dL Normal 12.0-16.0 [facility] Comment on above: Performed By: #### C BC #### [facility] [address] [place] [address] Anthony Yasemin IG # 0.02 10e3/ul Normal 0.00-0.03 [facility] Comment on above: Performed By: #### C BC #### [facility] [address] [place] [address] Anthony Yasemin IG % 0.3 % Normal 0.0-0.5 [facility] Comment on above: Performed By: #### C BC #### [facility] [address] [place] [address] Anthony Yasemin LYMPH # 2.5 103/ul Normal 1.2-3.[address] [facility] Comment on above: Performed By: #### C BC #### [facility] [address] [place] [address] Anthony Yasemin Lymphocytes/100 WBC (Bld) 40.8 % Normal 20.5-60.0 [facility] Comment on above: Performed By: #### C BC #### [facility] [address] [place], [place] [id number] Anthony Yasemin MANUAL DIFF REQ NO Normal [facility] Comment on above: Performed By: #### C BC #### [facility] [address] [place], [place] [id number] Anthony Yasemin MCH (RBC) [Entitic mass] 29.7 pg Normal 26.7-34.[address] [facility] Comment on above: Performed By: #### C BC #### [facility] [address] [place] [address] Anthony Yasemin MCHC (RBC) [Mass/Vol] 32.8 g/dL Normal 29.9-35.[address] [facility] Comment on above: Performed By: #### C BC #### [facility] [address] [place], [place] [id number] Anthony Yasemin MCV (RBC) [Entitic vol] 90.6 fL Normal 81.0-99.[address] [facility] Comment on above: Performed By: #### C BC #### [facility] [address] [place], [place] [id number] Anthony Yasemin MONO # 0.4 103/ul Normal 0.3-0.[address] [facility] Comment on above: Performed By: #### C BC #### [facility] [address] [place], [place] [id number] Anthony Yasemin Monocytes/100 WBC (Bld) 5.8 % Normal 1.7-12.[address] [facility] Comment on above: Performed By: #### C BC #### [facility] [address] [place], [place] [address] Anthony Yasemin NEUT # 2.8 103/ul Normal 1.4-6.[address] [facility] Comment on above: Performed By: #### C BC #### [facility] [address] [id number] Anthony Hazel Neutrophils/100 WBC (Bld) 46.8 % Normal 43.0-75.0 [facility] Comment on above: Performed By: #### C BC #### [facility] [address] [id number] Anthonygaviota Hazel Platelet mean volume (Bld) [Entitic vol] 9.2 fL Critically low 9.5-13.[address] [facility] Comment on above: Performed By: #### C BC #### [facility] [address] [id number] Anthony Yasemin PLT 338 103/ul Normal 150-[address] [facility] Comment on above: Performed By: #### C BC #### [facility] [address] [place], [place] [address] Anthony Yasemin RBC 4.45 106/ul Normal 4.20-5.40 [facility] Comment on above: Performed By: #### C BC #### [facility] [address] [id number] Anthonygaviota Hazel WBC 6.1 103/ul Normal 4.0-11.0 [facility] Comment on above: Performed By: #### C BC #### [facility] [address] [place], [place] [address] Anthony Hazel GLYCOHEMOGLOBIN A1Con 2020 ADA RECOMMENDATION ADA THERAPEUTIC TARG ET 6.0 - 7.0 ACTION SUGGESTED > 7.0 Normal [facility] Comment on above: Performed By: #### A 1C #### [facility] [address] [place], [place] [id number] Anthony Hazel Glucose [Mass/Vol] 114 mg/dL Normal [facility] Comment on above: Performed By: #### A 1C #### [facility] [address] [place], [place] [id number] Anthony Hazel HbA1c (Bld) [Mass fraction] 5.6 % Normal <=6.0 [facility] Comment on above: Performed By: #### A 1C #### [facility] [address] [place], [place] [id number] Anthony Hazel LIPID PROFILEon 05-02-2021 CHOL-HDL RATIO NORM SEE BELOW Normal [facility] Comment on above: Result Comment: 3.3 - 4.4 LOW RISK 4.4 - 7.1 AVERAGE RISK 7.1 - 11.0 MODERATE RISK >11.0 HIGH RISK Performed By: #### C BC #### [facility] [address] [place], [place] [address] Anthony Yasemin Cholesterol [Mass/Vol] 201 mg/dL Critically high <=200 [facility] Comment on above: Performed By: #### C BC #### [facility] [address] [place], [place] [address] Anthony Yasemin Cholesterol in HDL [Mass/Vol] 60 mg/dL Normal [facility] Comment on above: Performed By: #### C BC #### [facility] [address] [place], [place] [address] Anthony Yasemin Cholesterol in LDL [Mass/Vol] 124.2 mg/dL Normal [facility] Comment on above: Performed By: #### C BC #### [facility] [address] [place], [place] [address] Anthony Yasemin Cholesterol.total/Ch olesterol in HDL [Mass ratio] 3.4 {ratio} Normal [facility] Comment on above: Performed By: #### C BC #### [facility] [address] [place], [place] [address] Anthony Yasemin HDL NORMAL > or = 60 mg/dl - LO W CARDIOVASCULAR RISK <40 mg/dl - HIGH CARDIOVASCULAR RISK Normal [facility] Comment on above: Performed By: #### C BC #### [facility] [address] [place], [place] [address] Anthony Yasemin LDL CALC NORMAL SEE BELOW Normal [facility] Comment on above: Result Comment: <100 mg/dl OPTIMAL 100 - 129 mg/dl NEAR OR ABOVE OPTIMAL 130 - 159 mg/dl BORDERLINE HIGH 160 - 189 mg/dl HIGH >190 mg/dl VERY HIGH Performed By: #### C BC #### [facility] [address] [place], [place] [address] Anthony Yasemin Triglyceride [Mass/Vol] 84 mg/dL Normal <=[address] [facility] Comment on above: Performed By: #### C BC #### [facility] [address] [id number] Anthony Yasemin VLDL CALC 16.8 mg/dL Normal [facility] Comment on above: Performed By: #### C BC #### [facility] [address] [place], [place] [address] Anthonygaviota Luxen PROF 14(COMP METB)on 021 Albumin [Mass/Vol] 4.1 g/dL Normal 3.5-5.0 [facility] Comment on above: Performed By: #### C BC #### [facility] [address] [place], [place] [address] Anthony Yasemin Albumin/Globulin [Mass ratio] 1.1 {ratio} Normal [facility] Comment on above: Performed By: #### C BC #### [facility] [address] [place], [place] [address] Anthony Yasemin ALP [Catalytic activity/Vol] 43 U/L Normal 38-[address] [facility] Comment on above: Performed By: #### C BC #### [facility] [address] [place], [place] [address] Anthony Yasemin ALT [Catalytic activity/Vol] 24 U/L Normal 9-52 [facility] Comment on above: Performed By: #### C BC #### [facility] [address] [place], [place] [address] Anthony Yasemin Anion gap [Moles/Vol] 10.8 mmol/L Normal [facility] Comment on above: Performed By: #### C BC #### [facility] [address] [place] [address] Anthony Yasemin AST [Catalytic activity/Vol] 15 U/L Normal 14-36 [facility] Comment on above: Performed By: #### C BC #### [facility] [address] [place], [place] [id number] Anthony Yasemin Bilirubin [Mass/Vol] 0.4 mg/dL Normal 0.2-1.3 [facility] Comment on above: Performed By: #### C BC #### [facility] Laboratory [address] [id number] Anthony Yasemin Calcium [Mass/Vol] 9.2 mg/dL Normal 8.4-10.2 [facility] Comment on above: Performed By: #### C BC #### [facility] [address] [id number] Anthony Yasemin Chloride [Moles/Vol] 106 mmol/L Normal 98-[address] [facility] Comment on above: Performed By: #### C BC #### [facility] [address] [address] Anthony Yasemin CO2 [Moles/Vol] 31.7 mmol/L Critically high 22.0-30.[address] [facility] Comment on above: Performed By: #### C BC #### [facility] [address] [place] [address] Anthony Yasemin Creatinine [Mass/Vol] 0.79 mg/dL Normal 0.52-1.[address] [facility] Comment on above: Performed By: #### C BC #### [facility] [address] [id number] Anthony Yasemin EGFR-AF SAMOAN >60 Normal >=60 [facility] Comment on above: Performed By: #### C BC #### [facility] [address] [place], [place] [id number] Anthony Yasemin EGFR-NON AF SAMOAN >60 Normal >=[address] [facility] Comment on above: Performed By: #### C BC #### [facility] [address] [place], [place] [id number] Anthony Yasemin Globulin (S) [Mass/Vol] 3.7 g/dL Normal [facility] Comment on above: Performed By: #### C BC #### [facility] [address] [place], [place] [id number] Anthony Yasemin Glucose [Mass/Vol] 103 mg/dL Normal 74-106 [facility] Comment on above: Performed By: #### C BC #### [facility] [address] [address] Anthony Yasemin Potassium [Moles/Vol] 4.5 mmol/L Normal 3.4-5.0 [facility] Comment on above: Performed By: #### C BC #### [facility] [address] [id number] Anthony Hazel Protein [Mass/Vol] 7.8 g/dL Normal 6.1-8.2 [facility] Comment on above: Performed By: #### C BC #### [facility] [address] [place], [place] [id number] Anthony Hazel Sodium [Moles/Vol] 144 mmol/L Normal 137-145 [facility] Comment on above: Performed By: #### C BC #### [facility] [address] [place], [place] [id number] Anthonygaviota Hazel Urea nitrogen [Mass/Vol] 13.0 mg/dL Normal 7.0-17.0 [facility] Comment on above: Performed By: #### C BC #### [facility] [address] [place], [place] [id number] Anthony Hazel Urea nitrogen/Creatinine [Mass ratio] 16.5 mg/mg Normal [facility] Comment on above: Performed By: #### C BC #### [facility] [address] [place], [place] [id number] Anthony Hazel TSHon 05-02-2021 TSH 2.676 uIU/mL Normal 0.470-4.680 [facility] Comment on above: Performed By: #### C BC #### [facility] [address] [place], [place] [id number] Anthony Hazel TSH RANGE SEE BELOW Normal [facility] Comment on above: Result Comment: <0.3 4 UIU/ml HYPERTHYROID 0.34-5.60 UIU/ml EUTHYROID >5.60 UIU/ml HYPOTHYROID Performed By: #### C BC #### [facility] [address] [place], [place] [id number] Anthony Hazel [facility]24 SARS-CoV-2 (COVID-19) RNA REBECCA+probe Ql (Unsp spec) Not detected Normal NOT DETECTED [facility] Comment on above: Result Comment: This test is not yet approved or cleared by the [place] FDA. When there are no FDA-approved or cleared tests available, and other criteria are met, FDA can make tests available under an emergency access mechanism called an Emergency Use Authorization (EUA). The EUA for this test is supported by the Medicine Man of Health and Human Service's (HHS's) declaration that circumstances exist to justify the emergency use of in vitro diagnostics for the detection and/or diagnosis of the virus that causes COVID-19. This EUA will remain in effect (meaning this test can be used) for the duration of the COVID-19 declaration justifying emergency of IVDs, unless it is terminated or revoked by FDA (after which the test may no longer be used). When diagnostic testing is negative, the possibility of a false negative should be considered in the context of a patient's recent exposures and the presence of clinical signs and symptoms consistent with SARS-CoV-2. Performed By: #### C PENDING SALE TO [facility] #### [facility] [address] [place] [address] Anthony Hazel Vital Signs Date Time Vital Sign Value Performing Clinician Facility 10-31-2024 13:38-0500 Body height 154.9 cm Monse Cardenas MD Work Phone: [facility] 10-31-2024 13:38-0500 Body mass index (BMI) [Ratio] 29.1 kg/m2 Monse Cardenas MD Work Phone: [facility] 10-31-2024 13:38-0500 Body weight 69.85 kg Monse Cardenas MD Work Phone: [facility] 10-31-2024 13:38-0500 Diastolic blood pressure 66 mm[Hg] Monse Cardenas MD Work Phone: [facility] 10-31-2024 13:38-0500 Heart rate 88 /min Monse Cardenas MD Work Phone: [facility] 10-31-2024 13:38-0500 Systolic blood pressure 127 mm[Hg] Monse Cardenas MD Work Phone: [facility] 05-08-2024 13:22-0400 Body height 153.67 cm [facility] 05-08-2024 13:22-0400 Body mass index (BMI) [Ratio] 29.9 kg/m2 [facility] 05-08-2024 13:22-0400 Body weight 70.76 kg [facility] 05-08-2024 13:22-0400 Diastolic blood pressure 71 mm[Hg] [facility] 05-08-2024 13:22-0400 Heart rate 85 /min [facility] 05-08-2024 13:22-0400 Systolic blood pressure 120 mm[Hg] [facility] 08-24-2023 10:57-0400 Blood Pressure Location STEFFANY GANESH [facility] 08-24-2023 10:57-0400 Diastolic blood pressure 74 mm[Hg] STEFFANY GANESH [facility] 08-24-2023 10:57-0400 Heart rate 68 /min STEFFANY GANESH [facility] 08-24-2023 10:57-0400 Respiratory rate 16 /min STEFFANY GANESH [facility] 08-24-2023 10:57-0400 Systolic blood pressure 138 mm[Hg] STEFFANY GANESH [facility] 05-06-2023 10:30-0400 Body height 157.48 cm Mariluz Diaz Other [facility] Other 05-06-2023 10:30-0400 Body mass index (BMI) [Ratio] 27.8 kg/m2 Mariluz Diaz Other [facility] Other 05-06-2023 10:30-0400 Body weight 68.95 kg Mariluz Diaz Other [facility] Other 05-06-2023 10:30-0400 Diastolic blood pressure 79 mm[Hg] Mariluz Joe Other [facility] Other 05-06-2023 10:30-0400 Systolic blood pressure 122 mm[Hg] Mariluz Joe Other [facility] Other Encounters Encounter Date Encounter Type Care Provider Facility Start: 10-31-2024 End: 10-31-2024 James Cardenas MD Work Phone: [facility] Start: 10-31-2024 End: 10-31-2024 James Cardenas MD Work Phone: [facility] Start: 10-31-2024 End: 10-31-2024 Office outpatient new 45 minutes Monse Cardenas MD Work Phone: [facility] Comment on above: Mixed conductive and sensorineural hearing loss of right ear with restricted hearing of left ear (Primary Dx); ETD (Eustachian tube dysfunction), right Start: 10-31-2024 End: 10-31-2024 ambulatory MONSE CARDENAS Not Available Start: 05-08-2024 Patient encounter status [facility] Start: 05-08-2024 End: 05-08-2024 ambulatory [facility] Work Phone: Start: 05-08-2024 End: 05-08-2024 Encounter for general adult medical examination without abnormal findings [facility] Start: 05-08-2024 End: 05-08-2024 Patient encounter procedure Replaced By [facility] Physician [facility] Work Phone: Start: 08-24-2023 End: 08-25-2023 ambulatory PA-Dick ANDERSEN Facility:[facility] Start: 08-24-2023 End: 08-24-2023 Patient encounter procedure STEFFANY ANDERSEN [facility] Start: 06-11-2023 End: 06-11-2023 ambulatory Mariluz Diaz Other [facility] Other Start: 06-11-2023 Telephone encounter Mariluz Diaz [facility] Start: 05-11-2023 End: 05-11-2023 ambulatory Mariluz Diaz Other [facility] Other Start: 05-11-2023 Telephone encounter Mariluz Diaz [facility] Start: 05-06-2023 End: 05-06-2023 ambulatory Mariluz Diaz Other [facility] Other Start: 05-06-2023 Patient encounter procedure Mariluz Diaz [facility] Start: 05-03-2023 End: 05-03-2023 ambulatory Priyank Lloyd Other [facility] Other Start: 05-03-2023 Office outpatient vi sit 15 minutes [facility] Start: 12-12-2021 Encounter for genera l adult medical examination without abnormal findings DR MARILUZ DIAZ [facility] Start: 12-12-2021 End: 12-13-[address] MARILUZ DIAZ Facility:[facility] Start: 12-11-2021 End: 12-12-[address] MARILUZ DIAZ Facility:[facility] Start: 12-11-2021 End: 12-12-2021 Encounter for general adult medical examination without abnormal findings DR MARILUZ DIAZ Facility:[facility] Start: 08-15-2021 End: 08-16-[address] MARILUZ DIAZ Facility:[facility] Start: 05-29-2021 End: 05-29-[address] LINDA JACOBO Facility:[facility] Start: 05-22-2021 Encounter for other preprocedural examination DR LINDA JACOBO [facility] Start: 05-22-2021 Encounter for preprocedural cardiovascular examination DR LINDA JACOBO [facility] Start: 05-22-2021 Encounter for preprocedural laboratory examination DR LINDA JACOBO [facility] Start: 05-19-2021 End: 05-20-[address] LINDA JACOBO Facility:[facility] Start: 05-19-2021 End: 05-20-2021 Encounter for preprocedural laboratory examination DR LINDA JACOBO Facility:[facility] Start: 05-02-2021 End: 05-03-[address] MARILUZ DIAZ Facility:[facility] Start: 01-20-2021 End: 01-20-[address] LINDA JACOBO Facility:[facility] Start: 01-15-2021 End: 01-16-[address] LINDA JACOBO Facility:[facility] Procedures Date Procedure Procedure Detail Performing Clinician Start: 05-29-2021 Cystopexy STEFFANY SCHNEIDER Start: 01-20-2021 Cystourethroscopy wi dilation of urethral stricture STEFFANY ANDERSEN Start: 10-25-2013 Colonoscopy STEFFANY SCHNEIDER Appendectomy STEFFANY ANDERSEN Bilateral tubal ligation AMBROSIO ANDERSEN Comment on above: Cholecystectomy STEFFANY LENTZ Plan of Treatment Date Care Activity Detail Author Start: 12-25-2024 End: 12-25-2024 Patient encounter procedure 12/25/2024 2:50 PM EST Office Visit [facility] [address] [place] [address] Bridgette Pierce, JAKE [address] [place] [address] [facility] Start: 10-31-2024 End: 10-31-2024 Patient encounter procedure 10/31/2024 1:40 PM EST Office Visit [facility] [address] [facility] [address] [place] [id number] Monse Cardenas MD [address] [place] [address] Arrived [facility] Comment on above: Arrived Comprehensive metabo lic 2000 panel - Serum or Plasma [facility] MG Breast - bilatera l Screening [facility] Immunizations Immunization Date Immunization Notes Care Provider Bella ya 08-15-2021 SARS-CoV-2 (COVID-19 ) mRNA-1273 vaccine STEFFANY GANESH [facility] 11-20-2020 SARS-CoV-2 (COVID-19 ) mRNA-1273 vaccine STEFFANY GANESH [facility] 11-11-2020 SARS-CoV-2 (COVID-19 ) mRNA-1273 vaccine STEFFANY GANESH [facility] 10-23-2020 SARS-CoV-2 (COVID-19 ) mRNA-1273 vaccine STEFFANY GANESH [facility] 10-22-2020 SARS-CoV-2 (COVID-19 ) mRNA-1273 vaccine STEFFANY GANESH [facility] 09-07-2018 influenza virus vaccine, unspecified formulation STEFFANY GANESH [facility] Payers Date Payer Category Payer Private Health Insurance AARPrachi Sinha mber [id number] 2023 Medicare [id number] 2023 Medicare MEDICARE [id number] 2023 Unknown [id number] 2023 Medicare [id number] 2019 Unknown [id number] 1959 Self-pay [id number] 1960 Unknown [id number] [id number]. 593 1958 Unknown [id number] [id number]. 593 1958 Unknown [id number] [id number]. 593 1958 Unknown [id number] [id number]. 593 1958 Unknown [id number] [id number]. 593 1958 Unknown [id number] [id number]. 593 1958 Unknown [id number] [id number]. 593 1958 Unknown [id number] [id number]. 727 1958 Unknown [id number] [id number]. 1259 Medicare AARP Medicare Ad vantage [facility] [id number] Unknown [id number]. 593 Social History Date Type Detail Facility Start: 10-31-2024 Sex Assigned At F [facility] Start: 08-24-2023 Tobacco smoking status Ex-smoker (fi nding) [facility] Tobacco smoking status Never [facility] Start: 1960 Sex Assigned At Female F [facility] Tobacco smoking stat [facility] Tobacco smoking consumption unknown [facility] Start: 1960 Sex assigned at Not [facility] file [facility] Start: 10-31-2024 Tobacco smoking stat [facility] Never smoked tobacco [facility] Start: 10-31-2024 Tobacco use and exposure Smokeless tobacco non-user [facility] Start: 10-31-2024 Alcoholic beverage intake Current drinker of alcohol (finding) [facility] Start: 10-31-2024 History of Social function [facility] Healthcare Functional Status Date Assessment Result Facility 08-24-2023 Functional Status N/A [facility] Clinical Notes 05-03-2023 to 10-31-2024 Monse Cardenas MD - 10/31/2024 1:40 PM EST Note Date & Type Note Facility 10-31-2024 History of Presen t illness Narrative Subjective Patient ID: Arlene Jack is a 64 y.o. female who presents for Hearing Loss Pt has been followed by an rink rat since 2021. 12/2021 audio showed essentially normal left hearing and mild RT CHL with a 10-25dB ABG. Repeat audio 09/18/24 shows some progression shirley, but most notably on the right, with a persistent 5-10dB ABG. No prior h/o ear problems. No tubes. Review of Systems All other systems reviewed and are negative. No family history on file. Active Ambulatory Problems Diagnosis Date Noted No Active Ambulatory Problems Resolved Ambulatory Problems Diagnosis Date Noted No Resolved Ambulatory Problems Past Medical History: Diagnosis Date HL (hearing loss) Past Surgical History: Procedure Laterality Date BLADDER NECK SUSPENSION CHOLECYSTECTOMY TUBAL LIGATION No Known Allergies No current outpatient medications on file prior to visit. No current facility-administered medications on file prior to visit. Objective Last Recorded Vitals Vitals: 10/31/24 1338 BP: 127/66 Pulse: 88 ENT Physical Exam Constitutional Appearance: patient appears well-developed and well-nourished, Head and Face Appearance: head appears normal and face appears atraumatic; Ear Ear Canals: right ear canal normal; left ear canal normal; Tympanic Membranes: right tympanic membrane normal; left tympanic membrane normal; Ear comments: LT tymp normal. RT tymp negative. Nose External Nose: nares patent bilaterally; external nose normal; Internal Nose: nasal mucosa normal; Oral Cavity/Oropharynx Lips: normal; Teeth: normal; Gums: gingiva normal; Tongue: normal; Oral mucosa: normal; Hard palate: normal; Neck Neck: neck normal; neck palpation normal; Thyroid: thyroid normal; Respiratory Inspection: breathing unlabored; normal breathing rate; Auscultation: breath sounds are clear; Cardiovascular Inspection: extremities are warm and well perfused; no peripheral edema present; Auscultation: regular rate and rhythm; Assessment/Plan Diagnoses and all orders for this visit: Mixed conductive and sensorineural hearing loss of right ear with restricted hearing of left ear ETD (Eustachian tube dysfunction), right There has been a sig progression of the sensorineural component of pt's mixed HL in the past 2 years. This could be due to an AN. I will check an MRI IAC to ensure none is present. I will also start flonase to tx her ETD documented in this encounter [facility] 08-24-2023 Hospital Discharg e instructions Patient Education 08/24/2023 11:29:02 Urethral Stricture Urethral Stricture Urethral stricture is narrowing of the tube (urethra) that carries urine from the bladder out of the body. The urethra can become narrow due to scar tissue from an injury or infection. This can make it difficult to pass urine. In women, the urethra opens above the vaginal opening. In men, the urethra opens at the tip of the penis, and the urethra is much longer than it is in women. Because of the length of the male urethra, urethral stricture is much more common in men. This condition is treated with surgery. What are the causes? In both men and women, common causes of urethral stricture include: Urinary tract infection (UTI). Sexually transmitted infection (STI). Use of a tube placed into the urethra to drain urine from the bladder (urinary catheter). Urinary tract surgery. In men, common causes of urethral stricture include: A severe injury to the pelvis. Prostate surgery. Injury to the penis. In many cases, the cause of urethral stricture is not known. What increases the risk? You are more likely to develop this condition if you: Are male. Men who have had prostate surgery are at risk of developing this condition. Use a urinary catheter. Have had urinary tract surgery. What are the signs or symptoms? The main symptom of this condition is difficulty passing urine. This may cause decreased urine flow, dribbling, or spraying of urine. Other symptom of this condition may include: Frequent UTIs. Blood in the urine. Pain when urinating. Swelling of the penis in men. Inability to pass urine (urinary obstruction). How is this diagnosed? This condition may be diagnosed based on: Your medical history and a physical exam. Urine tests to check for infection or bleeding. X-rays. Ultrasound. Retrograde urethrogram. This is a type of test in which dye is injected into the urethra and then an X-ray is taken. Urethroscopy. This is when a thin tube with a light and camera on the end (urethroscope) is used to look at the urethra. How is this treated? This condition is treated with surgery. The type of surgery that you have depends on the severity of your condition. You may have: Urethral dilation. In this procedure, the narrow part of the urethra is stretched open (dilated) with dilating instruments or a small balloon. Urethrotomy. In this procedure, a urethroscope is placed into the urethra, and the narrow part of the urethra is cut open with a surgical blade inserted through the urethroscope. Open surgery. In this procedure, an incision is made in the urethra, the narrow part is removed, and the urethra is reconstructed. Follow these instructions at home: Take whia-tho-oxecznr and prescription medicines only as told by your health care provider. If you were prescribed an antibiotic medicine, take it as told by your health care provider. Do not stop taking the antibiotic even if you start to feel better. Drink enough fluid to keep your urine pale yellow. Keep all follow-up visits as told by your health care provider. This is important. Contact a health care provider if: You have signs of a urinary tract infection, such as: ?Frequent urination or passing small amounts of urine frequently. ?Needing to urinate urgently. ?Pain or burning with urination. ?Urine that smells bad or unusual. ?Cloudy urine. ?Pain in the lower abdomen or back. ?Trouble urinating. ?Blood in the urine. ?Vomiting or being less hungry than normal. ?Diarrhea or abdominal pain. ?Vaginal discharge, if you are female. Your symptoms are getting worse instead of better. Get help right away if: You cannot pass urine. You have a fever. You have swelling, bruising, or discoloration of your genital area. This includes the penis, scrotum, and inner thighs for men, and the outer genital organs (vulva) and inner thighs for women. You develop swelling in your legs. You have difficulty breathing. Summary Urethral stricture is narrowing of the tube (urethra) that carries urine from the bladder out of the body. The urethra can become narrow due to scar tissue from an injury or infection. This condition can make it difficult to pass urine. This condition is treated with surgery. The type of surgery that you have depends on the severity of your condition. Contact a health care provider if your symptoms get worse or you have signs of a urinary tract infection. This information is not intended to replace advice given to you by your health care provider. Make sure you discuss any questions you have with your health care provider. Document Revised: 08/18/2022 Document Reviewed: 08/18/2022 [email or web address] Patient Education 2022 [employer]. Follow Up Care 07/30/2023 08:37:43 With:STEFFANY ANDERSEN PA-C, URL Address: [address] [place] [address] [phone] When: only if needed [facility] Tim 05-06-2023 Evaluation note Encounter Date Diagnosis Assessment Notes Apr, Medicare annual wellness visit, initial (ICD-10 - Z00.00) Apr, Screening mammogram for breast cancer (ICD-10 - Z12.31) Apr, TIA (transient ischemic attack) (ICD-10 - G45.9) Apr, Bronchitis (ICD-10 - J40) Finish zpack tomorrow. Recommend flonase for plugged R ear. Will call if cough continues. Apr, Other Personalized health advice was given to the beneficiary including a written plan for screenings discussed and provided. Advanced care planning reviewed and/or information given as requested. Additional counseling was provided here today in regards to, [ ]. The above visit was performed by Dr. Diaz. Document reviewed and amended by provider signed below. [facility] Other 07-13-2023 Evaluation note* Encounter Date Diagnosis Assessment Notes Treatment Notes Treatment Clinical Notes Apr, Medicare annual wellness visit, initial (ICD-10 - Z00.00) Apr, Screening mammogram for breast cancer (ICD-10 - Z12.31) Apr, Bronchitis (ICD-10 - J40) Finish zpack tomorrow. Recommend flonase for plugged R ear. Will call if cough continues. Apr, History of TIA (transient ischemic attack) (ICD-10 - Z86.73) Will assess labs. No further symptoms. Apr, Other Personalized he alth advice was given to the beneficiary including a written plan for screenings discussed and provided. Advanced care planning reviewed and/or information given as requested. Additional counseling was provided here today in regards to, [ ]. The above visit was performed by Dr. Diaz. Document reviewed and amended by provider signed below. [facility] Other 07-10-2023 Evaluation note* Encounter Date Diagnosis Assessment Notes Treatment Notes Treatment Clinical Notes Apr, Acute non-recurrent maxillary sinusitis (ICD-10 - J01.00) Instructed to use Robitussin or Mucinex for cough, saline or Flonase NS for congestion, Tylenol for pain and fever. [facility] Other Evaluation + Plan note No data available for this section [facility] evaluation noteNo InformationNorth [employer] Other Evaluation note* Diagnosis Onset Date Resolution Status Elevated fasting glucose acu te Screening mammogram for breast cancer acute Wellness examination [facility] Work Phone: Evaluation note* Diagnosis Mixed conductive and sensorineural hearing loss of right ear with restricted hearing of left ear- Primary ETD (Eustachian tube dysfunction), right [facility] - [facility]* Type Description Date Medical History Incontinence in female Medical History Left medial knee pain Medical History TIA (transient ischemic attack) Surgical History CHOLECYSTECTOMY Surgical History BLADDER SURGERY Surgical History TUBAL LIGATION Surgical History APPENDECTOMY Hospitalization History SEE SURGICAL HX [facility] Your Last Chance Other Progress note No data available for this section [facility] Summary Purpose Family History No Family History Records Found Relationship Condition Age at Onset Recorded Date/T nette brother History of stroke Unknown father Malignant neoplasm Unknown Unknown mother Unknown Diabetes mellitus Unknown sister Diabetes mellitus Unknown Advance Directives No Advanced Directives Records Found Advance Directive Response Recorded Date/ Time Advance Directives No May 08 1:14pm Chief Complaint and Reason for Visit Chief Complaint wellness Reason for Visit Elevated fasting glu cose Screening mammogram for breast cancer Wellness examination Additional Source Comments INFORMATION SOURCE (unrecogn ized section and content) DATE CREATED AUTHOR 12/17/2021 [facility] DATE CREATED AUTHOR AUTHOR'S ORGANIZ ATION 08/26/2023 [facility] DATE CREATED AUTHOR AUTHOR'S ORGANIZ ATION 11/06/2024 [facility] Special[facility] EPIC REASON FOR VISIT (unrecogniz ed section and content) Reason Comments Hearing Loss Patient Care team informatio n (unrecognized section and content) Team Status: Active Member Role Status Dates Mariluz Diaz MD Primary Care Provider Active Team Status: Inactive Member Role Status Dates Mariluz Diaz MD Primary Care Provide r, Attending Provider Active Start: May 08, 2024 End: May 08, 2024 Sales And Marketing Specialist Relationship Specialty Start Date End Date Mariluz Diaz MD [address] [place] [phone] PCP - General Family Medicine 09/20/24 Sales And Marketing Specialist Relationship Specialty Start Date End Date Mariluz Diaz MD [address] [place] [phone] PCP - General Family Medicine 09/20/24 Goals (unrecognized section and content) Goals may be documented in a n alternate section FOR RECORDS PERTAINING TO PATIENTS WHO ARE OR HAVE BEEN ENROLLED IN A CHEMICAL DEPENDENCY/SUBSTANCEABUSE PROGRAM, SOME INFORMATION MAY BE OMITTED. This clinical summary was aggregated from multiple sources. Caution should be exercised in using it in the provision of clinical care. This summary normalizes information from multiple sources, and as a consequence, information in this document may materially change the coding, format and clinical context of patient data. In addition, data may be omitted in some cases. CLINICAL DECISIONS SHOULD BE BASED ON THE PRIMARY CLINICAL RECORDS. [employer] provides no warranty or guarantee of the accuracy or completeness of information in this document.
--- NOTE | 2024-11-09 12:35 | MR_ITS ---
The [address] [address] Patient Name: ARLENE JACK MRN: [id number] date: 1960 Sex: F Assigned Patient Location: LAB Current Patient Location: LAB Accession/Order Number: [id number] Exam Date: 11/09/2024 12:55 Report Date: 11/09/2024 23:08 At the request of: SANJANA CARDENAS Procedure: MR head/brain wo/w con EXAM: MR head/brain wo/w con HISTORY: mixed conductive and sensorineural hearing loss of right ear COMPARISON: None. TECHNIQUE: Multisequence MRI brain was performed with and without intravenous contrast. FINDINGS: There is no restricted diffusion to suggest acute infarct. There is no midline shift, mass effect, or abnormal extraaxial fluid collections. There are no abnormal parenchymal or leptomeningeal enhancement. The cortical sulci and ventricular system are within normal limits. There are a few nonspecific foci of T2/FLAIR signal abnormality in the osman and supratentorial white matter, likely reflect chronic microvascular ischemic changes. The internal auditory canals and cerebellopontine angles are unremarkable, without masses or abnormal enhancement. The bilateral cranial nerves VII and VIII are unremarkable. No abnormality is seen involving the membranous labyrinth. The major intracranial flow voids are visualized. The cerebellar tonsils are normal in position. The orbits demonstrate no suspicious enhancement or any focal lesions. The paranasal sinuses show no air-fluid level. The mastoid air cells are clear. The calvarium and extracranial soft tissues are unremarkable. MR/MR head/brain wo/w con IMPRESSION: No acute intracranial abnormality or abnormal intracranial enhancement. Clear internal auditory canals and cerebellopontine angles. Minimal chronic microvascular ischemic changes. Electronically authenticated by: MONIQUE UNLU Date: 11/09/2024 23:08
[2024-11-09 12:55] LABS: Estimated GFR (African America >60 (>=60 mL/min/1.73m^2); Estimated GFR (Non-African Ame >60 (>=60 mL/min/1.73m^2)
== END 2024-11-09 12:25 | disposition home or self-care (01) ==
LOC: LAB 12:25
PROVIDERS: PCP Family Medicine; Visit Provider Otolaryngology
DX: H90.A31 Mixed conductive and sensorineural hearing loss, unilateral, right ear with restricted hearing on the contralateral side (principal)
CPT/HCPCS: 36415; 70553; 82565; A9575

== ENCOUNTER 2025-05-14 12:54 | Outpatient (OUT) | payer MEDICARE, SELFPAY ==
--- NOTE | 2025-05-14 12:58 | MM_ITS ---
Patient Name: ARLENE JACK MR#: [id number] : 1960 Exam Date: 05/14/2025 Ordering Doctor: DR SAKINA DIAZ M.D. RADIOLOGY REPORT PROCEDURE: MM TOMOSYNTHESIS SCREENING BI COMPARISON: MM TOMOSYNTHESIS SCREENING BI, 05/12/2024. MM TOMOSYNTHESIS SCREENING BI, 05/10/2023. MG MAMM SCREEN 3D SHIRLEY CAD, 12/12/2021. MG MAMM SHIRLEY SCRN W CAD DIG, 09/12/2013. INDICATIONS: Screening Calculator Name NCI Breast Cancer Risk Assessment Tool 5 Year Breast Cancer Risk 1.40% Lifetime Breast Cancer Risk 5.00% Personal Breast Cancer No Personal Ovarian Cancer No Treatments None Family Cancers None LOCATION: The [facility] BREAST COMPOSITION: The breasts are heterogeneously dense, which may obscure small masses. FINDINGS: DIAGNOSTIC CATEGORY 1--NEGATIVE. RIGHT BREAST: No significant suspicious finding. LEFT BREAST: No significant suspicious finding. RECOMMENDATIONS: ROUTINE MAMMOGRAM AND CLINICAL EVALUATION IN 12 MONTHS. PLEASE NOTE: A NORMAL MAMMOGRAM DOES NOT EXCLUDE THE POSSIBILITY OF BREAST CANCER. A CLINICALLY SUSPICIOUS PALPABLE LUMP SHOULD BE BIOPSIED. Dictated by: Moiz Sevilla DO on 05/15/2025 at 15:50 Approved by: Moiz Sevilla DO on 05/15/2025 at 15:51
== END 2025-05-14 12:55 | disposition home or self-care (01) ==
LOC: MAMMO 12:54
PROVIDERS: PCP Family Medicine; Visit Provider Family Medicine
DX: Z12.31 Encounter for screening mammogram for malignant neoplasm of breast (principal)
CPT/HCPCS: 77063; 77067

== ENCOUNTER 2025-05-21 15:05 | Outpatient (OUT) | payer MEDICARE, SELFPAY ==
--- NOTE | 2025-05-21 15:29 | XR_ITS ---
[place] [address] Patient Name: ARLENE AJCK MRN: [id number] date: 1960 Sex: F Assigned Patient Location: [facility] Current Patient Location: [facility] Accession/Order Number: [id number] Exam Date: 05/21/2025 21:05 Report Date: 05/21/2025 21:06 At the request of: SAKINA DIAZ MD Procedure: XR foot RT min 3V RIGHT FOOT - 3 views CLINICAL HISTORY: Pain in right foot, M79.671 COMPARISON: None FINDINGS: No focal soft tissue abnormality. Plantar spurring. Mild scattered degenerative changes without acute bony process. No bony erosions. XR/XR foot RT min 3V IMPRESSION: MILD DEGENERATIVE CHANGES INVOLVING THE RIGHT FOOT WITH PLANTAR SPURRING. NO ACUTE BONY PROCESS. Impression dictated by: Moiz Sevilla Jr., D.O. 05/21/2025 9:06 PM Dictation Location: [place] [address] Electronically authenticated by: [id number] Y Date: 05/21/2025 21:06
--- OUTSIDE RECORDS SUMMARY | 2025-05-21 18:10 | XMS_ITS | CCD ---
Author Organization [facility] Care Team Providers Care Foreclosure Paralegal Name Role Phone JOE, DR MARILUZ Buenrostro Primary Care Unavailable DIAZ, DR MARILUZ Buenrostro Consulting Unavailable DIAZ, DR MARILUZ Buenrostro Attending Unavailable DIAZ, DR MARILUZ Buenrostro Admitting Unavailable KIERAN, DR MCKEON Admitting Unavailable JACOBO, DR MCKEON [...] DIAZ, DR MARILUZ Buenrostro Primary Care Unavailable CLARISSA CRENSHAW Consulting Unavailable FLOWER, CLARISSA Attending Unavailable ROSS, CLARISSA Admitting Unavailable JACOBO, DR MCKEON Admitting Unavailable JACOBO, DR MCKEON Consulting Unavailable JACOBO, DR MCKEON Attending Unavailable DIAZ, DR MARILUZ Buenrostro Primary Care Unavailable JACOBO, DR MCKEON Admitting Unavailable JACOBO, DR MCKEON Consulting Unavailable KIERAN, DR MCKEON Attending Unavailable DIAZ, DR MARILUZ Buenrostro Primary Care Unavailable DIAZ, DR MARILUZ Buenrostro Referring Unavailable JACOBO, DR MCKEON Consulting Unavailable JACOBO, DR MCKEON Attending Unavailable DIAZ, DR MARILUZ Buenrostro Primary Care Unavailable JACOBO, DR MCKEON Admitting Unavailable SHELBY MIX Consulting Unavailable Priyank Lloyd Unavailable Mariluz Diaz Unavailable MARILUZ DIAZ Primary Care Physician NORBERTO ANDERSEN Attending Naomi Chao MD, Mariluz Primary Care Provider [phone] Mariluz Diaz MD Primary Care Provider MONSE CARDENAS Attending Unavailable ATTILA ALVARADO Attending Unavailable ATTILA ALVARADO Attending Unavailable ATTILA ALVARADO Attending Unavailable ATTILA ALVARADO Attending Unavailable MONSE CARDENAS Attending Unavailable Allergies Allergy Classification Reported Allergen(s) Allergy Type Date of Onset Reaction(s) Facility (1 source) No Known Medication Allergies; Translations: [No Known Medication Allergies] Propensity to adverse reactions (disorder) [facility] Repository Medications Current Medications Medication Drug Class(es) Dates Sig (Normalized) Sig (Original) azithromycin 250 mg oral tablet (5 sources) Macrolide Antimicrobial Start: 05-03-2023 Azithromycin 250 MG as directed Orally daily for 5 days Apr, Active fluticasone propionate 0.05 mg/actuat metered dose nasal spray (18 sources) Corticosteroid Start: 10-31-2024 fluticasone (Flonase) 50 [...] Translations: [Atrophic vaginitis] Onset: 06-02-2021 Chronic Other and unspecified benign neoplasm (2 sources) Melanocytic nevus of trunk; Translations: [Melanocytic nevi of trunk] 12-25-2024 Episodic Other circulatory disease (2 sources) Personal history of transient ischemic attack (TIA), and cerebral infarction without residual deficits; Translations: [PERS HX TIA AND CI NO RESID DEFICIT] Onset: 06-02-2021 Episodic Other diseases of bladder and urethra (2 sources) Urethral stricture; Translations: [Unspecified urethral stricture, female] Onset: 08-24-2023 Episodic Other ear and sense organ disorders (4 sources) Mixed conductive AND sensorineural hearing loss; [...] [Patient encounter status] Onset: 12-12-2021 Episodic Other skin disorders (2 sources) Bacterial folliculitis; Translations: [Other specified follicular disorders] 12-25-2024 Episodic Other skin disorders (2 sources) Seborrheic keratosis; Translations: [Other seborrheic keratosis] 12-25-2024 Episodic Other upper respiratory infections (1 source) Acute maxillary sinusitis, unspecified Episodic Otitis media and related conditions (4 sources) Dysfunction of right eustachian tube; Translations: [Unspecified Eustachian tube disorder, right ear] 10-31-2024 Episodic Residual codes; unclassified (6 sources) Pain; Translations: [Pain, unspecified] 12-25-2024 Episodic Transient cerebral ischemia (7 sources) Transient cerebral ischemia; Translations: [Transient cerebral ischemic attack, unspecified] Chronic Unclassified (1 source) CONTACT W/AND (SUSP) EXPOS COVID-19; Translations: [CONTACT W/AND (SUSP) EXPOS COVID-19] Onset: 01-22-2021 Unclassified (1 source) Patient encounter status 05-08-2020 Viral infection (8 sources) Verruca vulgaris; Translations: [Other viral warts] 12-25-2024 Episodic Past or Other Problems Problem Classification Problem Date Documented Da te Episodic/Chronic Contraceptive and procreative management (1 source) Tubal ligation status; Translations: [TUBAL LIGATION STATUS] Onset: 01-24-2021 Episodic Immunizations and screening for infectious disease (4 sources) Encounter for immunization; Translations: [ENCOUNTER FOR IMMUNIZATION] Onset: 08-15-2021 Episodic Other aftercare (1 source) longterm (current) use of anticoagulants; Translations: [BLOOD BANK TECHNOLOGIST CURRNT USE ANTICOAGULANTS] Onset: 06-02-2021 Episodic Other [...] Test Name Value Interpretation Reference Range Facility No Panel Informationon 03-05 [facility] No Panel Informationon 02-02 [facility] No Panel Informationon 12-25 [facility] CREATININEon 11-09-2024 Creatinine [Mass/Vol] 0.9 mg/dL 0.55 - 1.02 mg/dL [facility] GFR/1.73 sq M.predicted CKD-EPI (S/P/Bld) [Vol rate/Area] >60 >=60 mL/min/1.73m 2 [facility] EGFR-NON AF QATARI >60 >=60 mL/min/1.73m 2 [facility] Basophils Auto (Bld) [#/Vol] on 05-08-2024 Basophils (Bld) [#/Vol] 0.1 10 3/uL 0.0-0.1 [facility] Basophils/100 WBC Auto (Bld) on 05-08-2024 Basophils/100 WBC (Bld) 1.3 % 0.2-2.0 [facility] Eosinophils/100 WBC Auto (Bl d)on 05-08-2024 Eosinophils/100 WBC (Bld) 1.7 % 0.9-7.0 [facility] Erythrocyte distribution wid th Auto (RBC) [Ratio]on 05-08-2024 Erythrocyte distribution width (RBC) [Ratio] 13.2 % 11.0-15.0 [facility] Hematocrit Auto (Bld) [Volum e fraction]on 05-08-2024 Hematocrit (Bld) [Volume fraction] 37.5 % 36.0-48.0 [facility] Hemoglobin [Mass/volume] in Bloodon 05-08-2024 Hemoglobin (Bld) [Mass/Vol] 12.3 g/dL 12.0-16.0 [facility] Laboratory - Hematology and Cell countson 05-08-2024 Immature granulocytes/100 WBC (Bld) 0.3 % 0.0-0.5 [facility] Leukocytes [#/volume] correc jailyn for nucleated erythrocytes in Blood by Automated counon 05-08-2024 WBC corrected for nucl RBC Auto (Bld) [#/Vol] 7.1 10 3/uL 4.0-11.0 [facility] Lymphocytes Auto (Bld) [#/Vo l]on 05-08-2024 Lymphocytes (Bld) [#/Vol] 2.8 10 3/uL 1.2-3.8 [facility] Lymphocytes/100 WBC Auto (Bl d)on 05-08-2024 Lymphocytes/100 WBC (Bld) 39.1 % 20.5-60.0 [facility] MCH Auto (RBC) [Entitic mass ]on 05-08-2024 MCH (RBC) [Entitic mass] 29.4 pg 26.7-34.0 [facility] MCHC Auto (RBC) [Mass/Vol]on 05-08-2024 MCHC (RBC) [Mass/Vol] 32.8 g/dL 29.9-35.2 [facility] MCV Auto (RBC) [Entitic vol] on 05-08-2024 MCV (RBC) [Entitic vol] 89.7 fL 81.0-99.0 [facility] Monocytes Auto (Bld) [#/Vol] on 05-08-2024 Monocytes (Bld) [#/Vol] 0.5 10 3/uL 0.3-0.8 [facility] Monocytes/100 WBC Auto (Bld) on 05-08-2024 Monocytes/100 WBC (Bld) 6.3 % 1.7-12.0 [facility] Neutrophils Auto (Bld) [#/Vo l]on 05-08-2024 Neutrophils (Bld) [#/Vol] 3.7 10 3/uL 1.4-6.5 [facility] Neutrophils/100 WBC Auto (Bl d)on 05-08-2024 Neutrophils/100 WBC (Bld) 51.3 % 43.0-75.0 [facility] No Panel Informationon 05-08 Eosinophils # (Auto) 0.1 10 3/uL 0.0-0.7 [facility] Immature Granulocyte # (Auto) 0.02 10 3/uL 0.00-0.03 [facility] Platelet mean volume Auto (B ld) [Entitic vol]on 05-08-2024 Platelet mean volume (Bld) [Entitic vol] 9.3 fL Low 9.5-13.5 [facility] Platelets Auto (Bld) [#/Vol] on 05-08-2024 Platelets (Bld) [#/Vol] 335 10 3/uL 150-450 [facility] RBC Auto (Bld) [#/Vol]on RBC (Bld) [#/Vol] 4.18 10 6/uL Low 4.20-5.40 [facility]enson 08-25-2023 Screens [id number] [id number] Normal [facility] Ambulatory Visit Summaryon 1 Ambulatory Visit Summary ARLENE JACK :1960 Visit Date:08/24/2023 Ambulatory Visit Instructions Your Diagnosis Unspecified urethral stricture, female Atrophic vaginitis Stress incontinence Tests Performed Urnls Dip Stick Auto w/o Microscopy POC 03060 Your Care Team Attending Physician - STEFFANY [...] URL When: Only if needed Where: [address] [place] [id number] Medications What How Much When Comments Stop Taking estradiol topical (Estrace Vaginal Cream 0.1 mg/ g) 1 Gram Vaginal Wednesday & Wednesday Test Results Urnls Dip Stick Auto w/o Microscopy POC 71134 (08/24/2023) Bilirubin Urine Dipstick - Negative Blood Urine Dipstick - Negative Glucose Urine Dipstick - Negative Ketones Urine Dipstick - Negative Leukocytes Urine Dipstick - Negative Nitrite Urine Dipstick - Negative Protein Urine Dipstick - Negative Specific [place] Urine Dipstick - 1.015 Urine Appearance Urine [...] a urethro (more content not included)... Normal [facility] Patient Educationon 10-31-20 23 Patient Education Urology Urethral Stricture Urethral stricture [...] Follow these instructions at home: ? Take pnla-bic-[id number] and prescription medicines only as told by [...] provider. Document Revised: 08/18/2022 Document Reviewed: 08/18/2022 [employer] Patient Education ? 2022 [employer] Grazyna Powell [facility] Urology Office/Clinic Noteon 08-24-2023 Urology Office/Clinic [...] with plan. Follow-up With When Contact Information GANESH THORNTON, STEFFANY Buenrostro, URL Only if needed [address] [place] [address] [phone] Additional Instructions: Patient Education Urethral Stricture Documentation [...] Protein Urine Dipstick: Negative (08/24/23 10:55:00) Specific [place] Urine Dipstick: (more content not included)... Normal [facility] Comment on above: Result Comment: Elec tronically Signed By: STEFFANY ANDERSEN PA-C\.br\Date and Time Signed: 08/24/23 11:51 EDT\.br\Electronically Co-Signed By: Ashely Queen.br\Date and Time Co-Signed: 08/24/23 11:36 EDT MG MAMM SCREEN 3D PETE CADon 12-12-2021 MG MAMM SCREEN 3D PETE CAD Patient: ARLENE JACK Exam Date: 12/12/2021 : 1960 Gender:F Ordering : DR MARILUZ DIAZ M.D. Admission #: [id number] Family : Order #: [id number] CLICK HERE TO VIEW EXAM RADIOLOGY REPORT PROCEDURE: MAMMOGRAM SCREENING 3D BILATERAL CAD COMPARISON: MG MAMM SCREEN PETE W CAD, 09/23/2020. MG MAMM RT DIAG FU, 09/13/2019. INDICATIONS: Screening mammography Calculator Name NCI Breast Cancer Risk Assessment Tool 5 Year Breast Cancer Risk 1.30% Lifetime Breast Cancer Risk 5.70% Personal Breast Cancer No Personal Ovarian Cancer No Treatments None Family Cancers None LOCATION: [facility] BREAST COMPOSITION: Heterogeneously dense,which may obscure small [...] M.D. on 12/12/2021 at 13:04 Normal [facility] CBC AUTO DIFFon 12-11-2021 BASO # 0.1 103/ul Normal 0.0-0.1 [facility] Comment on above: Performed By: #### C BC #### [facility] [address] [address] [address] Chasity Gonzalez Basophils/100 WBC (Bld) 1.4 % Normal 0.2-2.0 [facility] Comment on above: Performed By: #### C BC #### [facility] [address] [address] [address] Chasity Gonzalez EO # 0.1 103/ul Normal 0.0-0.7 [facility] Comment on above: Performed By: #### C BC #### [facility] [address] [address] [address] Chasity Gonzalez Eosinophils/100 WBC (Bld) 1.9 % Normal 0.9-7.0 [facility] Comment on above: Performed By: #### C BC #### [facility] [address] [address] [address] Chasity Gonzalez Erythrocyte distribution width (RBC) [Ratio] 12.6 % Normal 11.0-15.0 [facility] Comment on above: Performed By: #### C BC #### [facility] [address] [place] [address] Dr. Chasity Gonzalez Hematocrit (Bld) [Volume fraction] 40.7 % Normal 36.0-48.0 [facility] Comment on above: Performed By: #### C BC #### [facility] [address] [place] [address] Dr. Chasity Gonzalez Hemoglobin (Bld) [Mass/Vol] 13.3 g/dL Normal 12.0-16.0 [facility] Comment on above: Performed By: #### C BC #### [facility] [address] [place] [address] Dr. Chasity Gonzalez IG # 0.01 10e3/ul Normal 0.00-0.03 [facility] Comment on above: Performed By: #### C BC #### [facility] [address] [place] [address] Dr. Chasity Gonzalez IG % 0.2 % Normal 0.0-0.5 [facility] Comment on above: Performed By: #### C BC #### [facility] [address] [place] [address] Dr. Chasity Gonzalez LYMPH # 2.5 103/ul Normal 1.2-3.8 [facility] Comment on above: Performed By: #### C BC #### [facility] [address] [place] [address] Dr. Chasity Gonzalez Lymphocytes/100 WBC (Bld) 44.3 % Normal 20.5-60.0 [facility] Comment on above: Performed By: #### C BC #### [facility] [address] [place] [address] Dr. Chasity Gonzalez MANUAL DIFF REQ NO Normal [facility] Comment on above: Performed By: #### C BC #### [facility] [address] [place] [address] Dr. Chasity Gonzalez MCH (RBC) [Entitic mass] 29.0 pg Normal 26.7-34.0 [facility] Comment on above: Performed By: #### C BC #### [facility] [address] [address] [address] Chasity Gonzalez MCHC (RBC) [Mass/Vol] 32.7 g/dL Normal 29.9-35.2 [facility] Comment on above: Performed By: #### C BC #### [facility] [address] [address] [address] Chasity Gonzalez MCV (RBC) [Entitic vol] 88.9 fL Normal 81.0-99.0 [facility] Comment on above: Performed By: #### C BC #### [facility] [address] [place] [address] Dr. Chasity Gonzalez MONO # 0.3 103/ul Normal 0.3-0.8 [facility] Comment on above: Performed By: #### C BC #### [facility] [address] [place] [address] Dr. Chasity Gonzalez Monocytes/100 WBC (Bld) 5.8 % Normal 1.7-12.0 [facility] Comment on above: Performed By: #### C BC #### [facility] [address] [place] [address] Dr. Chasity Gonzalez NEUT # 2.6 103/ul Normal 1.4-6.5 [facility] Comment on above: Performed By: #### C BC #### [facility] [address] [place] [address] Dr. Chasity Gonzalez Neutrophils/100 WBC (Bld) 46.4 % Normal 43.0-75.0 [facility] Comment on above: Performed By: #### C BC #### [facility] [address] [place] [address] Dr. Chasity Gonzalez Platelet mean volume (Bld) [Entitic vol] 9.3 fL Critically low 9.5-13.5 [facility] Comment on above: Performed By: #### C BC #### [facility] [address] [place] [address] Dr. Chasity Gonzalez PLT 345 103/ul Normal 150-450 [facility] Comment on above: Performed By: #### C BC #### [facility] [address] [address] [address] Chasity Gonzalez RBC 4.58 106/ul Normal 4.20-5.40 [facility] Comment on above: Performed By: #### C BC #### [facility] [address] [place] [address] Dr. Chasity Gonzalez WBC 5.7 103/ul Normal 4.0-11.0 [facility] Comment on above: Performed By: #### C BC #### [facility] [address] [place] [address] Dr. Chasity Gonzalez GLYCOHEMOGLOBIN A1Con 2021 ADA RECOMMENDATION ADA THERAPEUTIC TARG ET 6.0 - 7.0 ACTION SUGGESTED > 7.0 Normal [facility] Comment on above: Performed By: #### A 1C #### [facility] [address] [place] [address] Dr. Chasity Gonzalez Glucose [Mass/Vol] 123 mg/dL Normal [facility] Comment on above: Performed By: #### A 1C #### [facility] [address] [place] [address] Dr. Chasity Gonzalez HbA1c (Bld) [Mass fraction] 5.9 % Normal <=6.0 [facility] Comment on above: Performed By: #### A 1C #### [facility] [address] [place] [address] Dr. Chasity Gonzalez LIPID PROFILEon 12-11-2021 CHOL-HDL RATIO NORM SEE BELOW Normal [facility] Comment on above: Result Comment: 3.3 - 4.4 LOW RISK 4.4 - 7.1 AVERAGE RISK 7.1 - 11.0 MODERATE RISK >11.0 HIGH RISK Performed By: #### C MP, LIPID, TSH #### [facility] [address] [place] [address] Dr. Chasity Gonzalez Cholesterol [Mass/Vol] 206 mg/dL Critically high <=200 [facility] Comment on above: Performed By: #### C MP, LIPID, TSH #### [facility] [address] [place] [address] Dr. Chasity Gonzalez Cholesterol in HDL [Mass/Vol] 57 mg/dL Normal [facility] Comment on above: Performed By: #### C MP, LIPID, TSH #### [facility] [address] [address] [address] Chasity Gonzalez Cholesterol in LDL [Mass/Vol] 129.6 mg/dL Normal [facility] Comment on above: Performed By: #### C MP, LIPID, TSH #### [facility] [address] [address] [address] Chasity Gonzalez Cholesterol.total/Ch olesterol in HDL [Mass ratio] 3.6 {ratio} Normal [facility] Comment on above: Performed By: #### C MP, LIPID, TSH #### [facility] [address] [place] [address] Dr. Chasity Gonzalez HDL NORMAL > or = 60 mg/dl - LO W CARDIOVASCULAR RISK <40 mg/dl - HIGH CARDIOVASCULAR RISK Normal [facility] Comment on above: Performed By: #### C MP, LIPID, TSH #### [facility] [address] [place] [address] Dr. Chasity Gonzalez LDL CALC NORMAL SEE BELOW Normal [facility] Comment on above: Result Comment: <100 mg/dl OPTIMAL 100 - 129 mg/dl NEAR OR ABOVE OPTIMAL 130 - 159 mg/dl BORDERLINE HIGH 160 - 189 mg/dl HIGH >190 mg/dl VERY HIGH Performed By: #### C MP, LIPID, TSH #### [facility] [address] [address] [address] Chasity Gonzalez Triglyceride [Mass/Vol] 97 mg/dL Normal <=150 [facility] Comment on above: Performed By: #### C MP, LIPID, TSH #### [facility] [address] [place] [address] Dr. Chasity Gonzalez VLDL CALC 19.4 mg/dL Normal [facility] Comment on above: Performed By: #### C MP, LIPID, TSH #### [facility] [address] [address] [address] Chasity Gonzalez PROF 14(COMP METB)on 022 Albumin [Mass/Vol] 4.3 g/dL Normal 3.5-5.0 [facility] Comment on above: Performed By: #### C MP, LIPID, TSH #### [facility] [address] [address] [address] Chasity Gonzalez Albumin/Globulin [Mass ratio] 1.1 {ratio} Normal [facility] Comment on above: Performed By: #### C MP, LIPID, TSH #### [facility] [address] [address] [address] Chasity Gonzalez ALP [Catalytic activity/Vol] 55 U/L Normal 38-126 [facility] Comment on above: Performed By: #### C MP, LIPID, TSH #### [facility] [address] [address] [address] Chasity Gonzalez ALT [Catalytic activity/Vol] 28 U/L Normal 9-52 [facility] Comment on above: Performed By: #### C MP, LIPID, TSH #### [facility] [address] [address] [address] Chasity Gonzalez Anion gap [Moles/Vol] 13.7 mmol/L Normal [facility] Comment on above: Performed By: #### C MP, LIPID, TSH #### [facility] [address] [address] [address] Chasity Gonzalez AST [Catalytic activity/Vol] 19 U/L Normal 14-36 [facility] Comment on above: Performed By: #### C MP, LIPID, TSH #### [facility] [address] [address] [address] Chasity Gonzalez Bilirubin [Mass/Vol] 0.5 mg/dL Normal 0.2-1.3 [facility] Comment on above: Performed By: #### C MP, LIPID, TSH #### [facility] [address] [address] [address] Chasity Gonzalez Calcium [Mass/Vol] 9.4 mg/dL Normal 8.4-10.2 [facility] Comment on above: Performed By: #### C MP, LIPID, TSH #### [facility] [address] [address] [address] Chasity Gonzalez Chloride [Moles/Vol] 104 mmol/L Normal 98-107 [facility] Comment on above: Performed By: #### C MP, LIPID, TSH #### [facility] [address] [place] [address] Dr. Chasity Gonzalez CO2 [Moles/Vol] 27.7 mmol/L Normal 22.0-30.0 [facility] Comment on above: Performed By: #### C MP, LIPID, TSH #### [facility] [address] [place] [address] Dr. Chasity Gonzalez Creatinine [Mass/Vol] 0.73 mg/dL Normal 0.52-1.04 [facility] Comment on above: Performed By: #### C MP, LIPID, TSH #### [facility] [address] [place] [address] Dr. Chasity Gonzalez EGFR-AF QATARI >60 Normal >=60 [facility] Comment on above: Performed By: #### C MP, LIPID, TSH #### [facility] [address] [place] [address] Dr. Chasity Gonzalez EGFR-NON AF QATARI >60 Normal >=60 [facility] Comment on above: Performed By: #### C MP, LIPID, TSH #### [facility] [address] [place] [address] Dr. Chasity Gonzalez Globulin (S) [Mass/Vol] 3.8 g/dL Normal [facility] Comment on above: Performed By: #### C MP, LIPID, TSH #### [facility] [address] [place] [address] Dr. Chasity Gonzalez Glucose [Mass/Vol] 98 mg/dL Normal 74-106 [facility] Comment on above: Performed By: #### C MP, LIPID, TSH #### [facility] [address] [place] [address] Dr. Chasity Gonzalez Potassium [Moles/Vol] 4.4 mmol/L Normal 3.4-5.0 [facility] Comment on above: Performed By: #### C MP, LIPID, TSH #### [facility] [address] [place] [address] Dr. Chasity Gonzalez Protein [Mass/Vol] 8.1 g/dL Normal 6.1-8.2 [facility] Comment on above: Performed By: #### C MP, LIPID, TSH #### [facility] [address] [place] [address] Dr. Chasity Gonzalez Sodium [Moles/Vol] 141 mmol/L Normal 137-145 [facility] Comment on above: Performed By: #### C MP, LIPID, TSH #### [facility] [address] [place] [address] Dr. Chasity Gonzalez Urea nitrogen [Mass/Vol] 16.0 mg/dL Normal 7.0-17.0 [facility] Comment on above: Performed By: #### C MP, LIPID, TSH #### [facility] [address] [place] [address] Dr. Chasity Gonzalez Urea nitrogen/Creatinine [Mass ratio] 21.9 mg/mg Normal [facility] Comment on above: Performed By: #### C MP, LIPID, TSH #### [facility] [address] [place] [address] Dr. Chasity Gonzalez TSHon 12-11-2021 TSH 2.617 uIU/mL Normal 0.470-4.680 [facility] Comment on above: Performed By: #### C MP, LIPID, TSH #### [facility] [address] [place] [address] Dr. Chasity Gonzalez TSH RANGE SEE BELOW Normal [facility] Comment on above: Result Comment: <0.3 4 UIU/ml HYPERTHYROID 0.34-5.60 UIU/ml EUTHYROID >5.60 UIU/ml HYPOTHYROID Performed By: #### C MP, LIPID, TSH #### [facility] [address] [place] [address] Dr. Chasity Gonzalez CULTURE URINEon 05-19-2021 CULTURE URINE Culture Observations : NO GROWTH. Normal [facility] Comment on above: Performed By: #### U RCX #### [facility] [address] [place] [address] Anthony Hzael PROTIMEon 05-19-2021 INR Coag (PPP) [Relative time] 0.95 {INR} Normal [facility] Comment on above: Performed By: #### C BC #### [facility] [address] [place], [place] [id number] Anthony Yasemin INR GUIDELINES SEE BELOW Normal [facility] Comment on above: Result Comment: WOLF RED INR: 2.0 - 3.0 CONDITIONS NOT LISTED BELOW 2.5 - 3.5 FOR PROSTHETIC HEART VALVE REPLACEMENT 2.5 - 3.5 RECURRENT THROMBOSIS Performed By: #### C BC #### [facility] [address] [place] [address] Anthony Yasemin PT Coag (PPP) [Time] 10.3 s Normal 9.0-11.6 [facility] Comment on above: Performed By: #### C BC #### [facility] [address] [place] [address] Anthony Yasemin PTTon 05-19-2021 aPTT Coag (Bld) [Time] 26.8 s Normal 22.3-36.2 [facility] Comment on above: Performed By: #### C BC #### [facility] [address] [place] [place] [address] Anthony Yasemin CBC AUTO DIFFon 05-02-2021 BASO # 0.1 103/ul Normal 0.0-0.1 [facility] Comment on above: Performed By: #### C BC #### [facility] [address] [place], [place] [id number] Anthony Yasemin Basophils/100 WBC (Bld) 1.7 % Normal 0.2-2.0 [facility] Comment on above: Performed By: #### C BC #### [facility] [address] [place] [place] [address] Anthony Yasemin EO # 0.3 103/ul Normal 0.0-0.7 [facility] Comment on above: Performed By: #### C BC #### [facility] [address] [place], [place] [id number] Anthony Yasemin Eosinophils/100 WBC (Bld) 4.6 % Normal 0.9-7.0 [facility] Comment on above: Performed By: #### C BC #### [facility] [address] [place], [place] [id number] Anthony Yasemin Erythrocyte distribution width (RBC) [Ratio] 12.8 % Normal 11.0-15.0 [facility] Comment on above: Performed By: #### C BC #### [facility] [address] [place] [address] Anthony Yasemin Hematocrit (Bld) [Volume fraction] 40.3 % Normal 36.0-48.0 [facility] Comment on above: Performed By: #### C BC #### [facility] [address] [place] [address] Anthony Yasemin Hemoglobin (Bld) [Mass/Vol] 13.2 g/dL Normal 12.0-16.0 [facility] Comment on above: Performed By: #### C BC #### [facility] [address] [place] [address] Anthony Yasemin IG # 0.02 10e3/ul Normal 0.00-0.03 [facility] Comment on above: Performed By: #### C BC #### [facility] [address] [place] [address] Anthony Yasemin IG % 0.3 % Normal 0.0-0.5 [facility] Comment on above: Performed By: #### C BC #### [facility] [address] [place] [address] Anthony Yasemin LYMPH # 2.5 103/ul Normal 1.2-3.8 [facility] Comment on above: Performed By: #### C BC #### [facility] [address] [place] [address] Anthony Yasemin Lymphocytes/100 WBC (Bld) 40.8 % Normal 20.5-60.0 [facility] Comment on above: Performed By: #### C BC #### [facility] [address] [place] [place] [address] Anthony Yasemin MANUAL DIFF REQ NO Normal [facility] Comment on above: Performed By: #### C BC #### [facility] [address] [place] [address] Anthony Yasemin MCH (RBC) [Entitic mass] 29.7 pg Normal 26.7-34.0 [facility] Comment on above: Performed By: #### C BC #### [facility] [address] [place], [place] [id number] Anthony Hazel MCHC (RBC) [Mass/Vol] 32.8 g/dL Normal 29.9-35.2 [facility] Comment on above: Performed By: #### C BC #### [facility] [address] [place] [address] Anthony Hazel MCV (RBC) [Entitic vol] 90.6 fL Normal 81.0-99.0 [facility] Comment on above: Performed By: #### C BC #### [facility] [address] [place] [address] Anthony Hazel MONO # 0.4 103/ul Normal 0.3-0.8 [facility] Comment on above: Performed By: #### C BC #### [facility] [address] [place] [address] Anthony Hazel Monocytes/100 WBC (Bld) 5.8 % Normal 1.7-12.0 [facility] Comment on above: Performed By: #### C BC #### [facility] [address] [place] [address] Anthony Hazel NEUT # 2.8 103/ul Normal 1.4-6.5 [facility] Comment on above: Performed By: #### C BC #### [facility] [address] [place] [address] Anthony Hazel Neutrophils/100 WBC (Bld) 46.8 % Normal 43.0-75.0 [facility] Comment on above: Performed By: #### C BC #### [facility] [address] [place], [place] [id number] Anthonygaviota Hazel Platelet mean volume (Bld) [Entitic vol] 9.2 fL Critically low 9.5-13.5 [facility] Comment on above: Performed By: #### C BC #### [facility] [address] [place] [address] Anthony Yasemin PLT 338 103/ul Normal 150-450 [facility] Comment on above: Performed By: #### C BC #### [facility] [address] [place], [place] [id number] Anthony Hazel RBC 4.45 106/ul Normal 4.20-5.40 [facility] Comment on above: Performed By: #### C BC #### [facility] [address] [place], [place] [id number] Anthony Hazel WBC 6.1 103/ul Normal 4.0-11.0 [facility] Comment on above: Performed By: #### C BC #### [facility] [address] [place], [place] [id number] Anthony Hazel GLYCOHEMOGLOBIN A1Con 2020 ADA RECOMMENDATION ADA THERAPEUTIC TARG ET 6.0 - 7.0 ACTION SUGGESTED > 7.0 Normal [facility] Comment on above: Performed By: #### A 1C #### [facility] [address] [place] [address] Anthony Hazel Glucose [Mass/Vol] 114 mg/dL Normal [facility] Comment on above: Performed By: #### A 1C #### [facility] [address] [place], [place] [id number] Anthony Hazel HbA1c (Bld) [Mass fraction] 5.6 % Normal <=6.0 [facility] Comment on above: Performed By: #### A 1C #### [facility] [address] [place], [place] [id number] Anthony Hazel LIPID PROFILEon 05-02-2021 CHOL-HDL RATIO NORM SEE BELOW Normal [facility] Comment on above: Result Comment: 3.3 - 4.4 LOW RISK 4.4 - 7.1 AVERAGE RISK 7.1 - 11.0 MODERATE RISK >11.0 HIGH RISK Performed By: #### C BC #### [facility] [address] [place] [address] Anthony Hazel Cholesterol [Mass/Vol] 201 mg/dL Critically high <=200 [facility] Comment on above: Performed By: #### C BC #### [facility] [address] [place], [place] [address] Anthony Yasemin Cholesterol in HDL [Mass/Vol] 60 mg/dL Normal [facility] Comment on above: Performed By: #### C BC #### [facility] [address] [id number] Anthony Yasemin Cholesterol in LDL [Mass/Vol] 124.2 mg/dL Normal [facility] Comment on above: Performed By: #### C BC #### [facility] [address] [id number] Anthony Yasemin Cholesterol.total/Ch olesterol in HDL [Mass ratio] 3.4 {ratio} Normal [facility] Comment on above: Performed By: #### C BC #### [facility] [address] [id number] Anthony Yasemin HDL NORMAL > or = 60 mg/dl - LO W CARDIOVASCULAR RISK <40 mg/dl - HIGH CARDIOVASCULAR RISK Normal [facility] Comment on above: Performed By: #### C BC #### [facility] [address] [address] Anthony Yasemin LDL CALC NORMAL SEE BELOW Normal [facility] Comment on above: Result Comment: <100 mg/dl OPTIMAL 100 - 129 mg/dl NEAR OR ABOVE OPTIMAL 130 - 159 mg/dl BORDERLINE HIGH 160 - 189 mg/dl HIGH >190 mg/dl VERY HIGH Performed By: #### C BC #### [facility] [address] [address] Anthony Yasemin Triglyceride [Mass/Vol] 84 mg/dL Normal <=150 [facility] Comment on above: Performed By: #### C BC #### [facility] [address] [id number] Anthony Yasemin VLDL CALC 16.8 mg/dL Normal [facility] Comment on above: Performed By: #### C BC #### [facility] [address] [id number] Anthonygaviota Hazel PROF 14(COMP METB)on 021 Albumin [Mass/Vol] 4.1 g/dL Normal 3.5-5.0 [facility] Comment on above: Performed By: #### C BC #### [facility] [address] [place], [place] [address] Anthony Yasemin Albumin/Globulin [Mass ratio] 1.1 {ratio} Normal [facility] Comment on above: Performed By: #### C BC #### [facility] [address] [place], [place] [address] Anthony Yasemin ALP [Catalytic activity/Vol] 43 U/L Normal 38-126 [facility] Comment on above: Performed By: #### C BC #### [facility] [address] [place], [place] [id number] Anthnoy Yasemin ALT [Catalytic activity/Vol] 24 U/L Normal 9-52 [facility] Comment on above: Performed By: #### C BC #### [facility] [address] [place], [place] [id number] Anthony Yasemin Anion gap [Moles/Vol] 10.8 mmol/L Normal [facility] Comment on above: Performed By: #### C BC #### [facility] [address] [place], [place] [id number] Anthony Yasemin AST [Catalytic activity/Vol] 15 U/L Normal 14-36 [facility] Comment on above: Performed By: #### C BC #### [facility] [address] [place], [place] [id number] Anthony Yasemin Bilirubin [Mass/Vol] 0.4 mg/dL Normal 0.2-1.3 [facility] Comment on above: Performed By: #### C BC #### [facility] [address] [place], [place] [id number] Anthony Yasemin Calcium [Mass/Vol] 9.2 mg/dL Normal 8.4-10.2 [facility] Comment on above: Performed By: #### C BC #### [facility] [address] [place], [place] [id number] Anthony Yasemin Chloride [Moles/Vol] 106 mmol/L Normal 98-107 [facility] Comment on above: Performed By: #### C BC #### [facility] [address] [place], [place] [id number] Anthony Yasemin CO2 [Moles/Vol] 31.7 mmol/L Critically high 22.0-30.0 [facility] Comment on above: Performed By: #### C BC #### [facility] [address] [place], [place] [id number] Anthony Yasemin Creatinine [Mass/Vol] 0.79 mg/dL Normal 0.52-1.04 [facility] Comment on above: Performed By: #### C BC #### [facility] [address] [place], [place] [id number] Anthony Yasemin EGFR-AF QATARI >60 Normal >=60 [facility] Comment on above: Performed By: #### C BC #### [facility] [address] [place], [place] [address] Anthony Yasemin EGFR-NON AF QATARI >60 Normal >=60 [facility] Comment on above: Performed By: #### C BC #### [facility] [address] [place], [place] [id number] Anthony Yasemin Globulin (S) [Mass/Vol] 3.7 g/dL Normal [facility] Comment on above: Performed By: #### C BC #### [facility] [address] [place], [place] [id number] Anthony Yasemin Glucose [Mass/Vol] 103 mg/dL Normal 74-106 [facility] Comment on above: Performed By: #### C BC #### [facility] [address] [place], [place] [id number] Anthony Yasemin Potassium [Moles/Vol] 4.5 mmol/L Normal 3.4-5.0 [facility] Comment on above: Performed By: #### C BC #### [facility] [address] [place], [place] [id number] Anthony Yasemin Protein [Mass/Vol] 7.8 g/dL Normal 6.1-8.2 [facility] Comment on above: Performed By: #### C BC #### [facility] [address] [place], [place] [id number] Anthony Yasemin Sodium [Moles/Vol] 144 mmol/L Normal 137-145 [facility] Comment on above: Performed By: #### C BC #### [facility] [address] [place], [place] [address] Anthony Hazel Urea nitrogen [Mass/Vol] 13.0 mg/dL Normal 7.0-17.0 [facility] Comment on above: Performed By: #### C BC #### [facility] [address] [address] Anthony Hazel Urea nitrogen/Creatinine [Mass ratio] 16.5 mg/mg Normal [facility] Comment on above: Performed By: #### C BC #### [facility] [address] [address] Anthony Hazel TSHon 05-02-2021 TSH 2.676 uIU/mL Normal 0.470-4.680 [facility] Comment on above: Performed By: #### C BC #### [facility] [address] [place] [address] Anthony Hazel TSH RANGE SEE BELOW Normal [facility] Comment on above: Result Comment: <0.3 4 UIU/ml HYPERTHYROID 0.34-5.60 UIU/ml EUTHYROID >5.60 UIU/ml HYPOTHYROID Performed By: #### C BC #### [facility] [address] [id number] Anthony Hazel [facility] SARS-CoV-2 (COVID-19) RNA REBECCA+probe Ql (Unsp spec) Not detected Normal NOT DETECTED [facility] Comment on above: Result Comment: This test is not yet approved or cleared by the [place] FDA. When there are no FDA-approved or cleared tests available, and other criteria are met, FDA can make tests available under an emergency access mechanism called an Emergency Use Authorization (EUA). The EUA for this test is supported by the [place] of Health and Human Service's (HHS's) declaration [...] consistent with SARS-CoV-2. Performed By: #### C [facility] #### [facility] [address] [place], [place] [address] Anthony Hazel Vital Signs Date Time Vital Sign Value Performing Clinician Facility 10-31-2024 13:38-0500 Body height 154.9 cm Monse Cardenas MD Work Phone: [facility] 10-31-2024 13:38-0500 Body mass index (BMI) [Ratio] 29.1 kg/m2 Monse Cardenas MD Work Phone: [facility] 10-31-2024 13:38-0500 Body weight 69.85 kg Monse Cardenas MD Work Phone: [facility] 10-31-2024 13:38-0500 Diastolic blood pressure 66 mm[Hg] Monse Cardenas MD Work Phone: [facility] 10-31-2024 13:38-0500 Heart rate 88 /min Monse Cardenas MD Work Phone: [facility] 10-31-2024 13:38-0500 Systolic blood pressure 127 mm[Hg] Monse Cardenas MD Work Phone: [facility] 05-08-2024 13:22-0400 Body height 153.67 cm [facility] 05-08-2024 13:22-0400 Body mass index (BMI) [Ratio] 29.9 kg/m2 [facility] 05-08-2024 13:22-0400 Body weight 70.76 kg [facility] 05-08-2024 13:22-0400 Diastolic blood pressure 71 mm[Hg] [facility] 05-08-2024 13:22-0400 Heart rate 85 /min [facility] 05-08-2024 13:22-0400 Systolic blood pressure 120 mm[Hg] [facility] 08-24-2023 10:57-0400 Blood Pressure Location STEFFANY ANDERSEN [facility] 08-24-2023 10:57-0400 Diastolic blood pressure 74 mm[Hg] STEFFANY GANESH [facility] 08-24-2023 10:57-0400 Heart rate 68 /min STEFFANYGIBRAN ANDERSEN [facility] 08-24-2023 10:57-0400 Respiratory rate 16 /min STEFFANY GANESH [facility] 08-24-2023 10:57-0400 Systolic blood pressure 138 mm[Hg] STEFFANY WAGNERRY [facility] 05-06-2023 10:30-0400 Body height 157.48 cm Mariluz Diaz Other [facility] Other 05-06-2023 10:30-0400 Body mass index (BMI) [Ratio] 27.8 kg/m2 Mariluz Diaz Other [facility] 05-06-2023 10:30-0400 Body weight 68.95 kg Mariluz Diaz Other [facility] Other 05-06-2023 10:30-0400 Diastolic blood pressure 79 mm[Hg] Mariluz Diaz Other [facility] Other 05-06-2023 10:30-0400 Systolic blood pressure 122 mm[Hg] Mariluz Diaz Other [facility] Other Encounters Encounter Date Encounter Type Care Provider Facility Start: 04-04-2025 End: 04-04-2025 James JOSEPH Work Phone: [facility] Start: 04-04-2025 End: 04-04-2025 Bamboo flowsheet Attila L Christiano PA Work Phone: [facility] Start: 04-04-2025 End: 04-04-2025 Office outpatient visit 10 minutes Attila L Christiano PA Work Phone: [facility] Comment on above: Other viral warts (P rimary Dx) Start: 04-04-2025 End: 04-04-2025 ambulatory ATTILA L CHRISTIANO Not Available Start: 03-05-2025 End: 03-05-2025 Bamboo flowsheet Attila L Christiano PA Work Phone: [facility] Start: 03-05-2025 End: 03-05-2025 Bamboo flowsheet Attila L Christiano PA Work Phone: [facility] Start: 03-05-2025 End: 03-05-2025 Patient encounter procedure Attila L Christiano PA Work Phone: [facility] Comment on above: Common wart (Primary Dx); Pain Start: 03-05-2025 End: 03-05-2025 ambulatory ATTILA L CHRISTIANO Not Available Start: 02-02-2025 End: 02-02-2025 Bamboo flowsheet Attila L Christiano PA Work Phone: [facility] Start: 02-02-2025 End: 02-02-2025 Bamboo flowsheet Attila L Christiano PA Work Phone: [facility] Start: 02-02-2025 End: 02-02-2025 Patient encounter procedure Attila L Christiano PA Work Phone: [facility] Comment on above: Common wart (Primary Dx); Pain Start: 02-02-2025 End: 02-02-2025 ambulatory ATTILA L CHRISTIANO Not Available Start: 12-25-2024 End: 12-25-2024 Office outpatient new 30 minutes Attila L Christiano PA Work Phone: [facility] Comment on above: Bacterial folliculit is (Primary Dx); Seborrheic keratosis; Melanocytic nevus of trunk; Common wart; Pain Start: 12-25-2024 End: 12-25-2024 ambulatory ATTILA ALVARADO Not Available Start: 12-25-2024 End: 12-25-2024 Bamboo flowsheet Attila Alvarado PA Work Phone: [facility] Start: 12-25-2024 End: 12-25-2024 Bamboo flowsheet Attilaclaritza Alvarado PA Work Phone: [facility] Start: 11-28-2024 End: 11-28-2024 Bamboo flowsheet Monse Cardenas MD Work Phone: [facility] Start: 11-28-2024 End: 11-28-2024 Bamboo flowsheet Monse Cardenas MD Work Phone: [facility] Start: 11-28-2024 End: 11-28-2024 Office outpatient visit 15 minutes Monse Cardenas MD Work Phone: [facility] Comment on above: ETD (Eustachian tube dysfunction), right (Primary Dx); Mixed conductive and sensorineural hearing loss of right ear with restricted hearing of left ear Start: 11-28-2024 End: 11-28-2024 ambulatory MONSE CARDENAS Not Available Start: 11-09-2024 End: 11-09-2024 Clinisync Result Encounter Monse Cardenas MD Work Phone: [facility] Unsolicited Start: 11-09-2024 End: 11-09-2024 Clinisync Result Encounter Monse Cardenas MD Work Phone: [facility] Unsolic[facility] Start: 10-31-2024 End: 10-31-2024 Bamboo flowsleo Cardenas MD Work Phone: [facility] Start: 10-31-2024 End: 10-31-2024 Bamboo flowsleo Cardenas MD Work Phone: [facility] Start: 10-31-2024 End: 10-31-2024 Office outpatient new 45 minutes Monse Cardenas MD Work Phone: [facility] Comment on above: Mixed conductive and sensorineural hearing loss of right ear with restricted hearing of left ear (Primary Dx); ETD (Eustachian tube dysfunction), right Start: 10-31-2024 End: 10-31-2024 ambulatory MONSE CARDENAS Not Available Start: 05-08-2024 Patient encounter status [facility] Start: 05-08-2024 End: 05-08-2024 ambulatory [facility] Work Phone: Start: 05-08-2024 End: 05-08-2024 Encounter for general adult medical examination without abnormal findings [facility] Start: 05-08-2024 End: 05-08-2024 Patient encounter procedure [facility] Work Phone: Start: 08-24-2023 End: 08-25-2023 ambulatory JAKE-Dick ANDERSEN Facility:[facility] Start: 08-24-2023 End: 08-24-2023 Patient encounter procedure STEFFANY ANDERSEN [facility] Start: 06-11-2023 End: 06-11-2023 ambulatory Mariluz Diaz Other [facility] Other Start: 06-11-2023 Telephone encounter Mariluz Diaz [facility] Start: 05-11-2023 End: 05-11-2023 ambulatory Mariluz Diaz Other [facility] Other Start: 05-11-2023 Telephone encounter Mariluz Diaz [facility] Start: 05-06-2023 End: 05-06-2023 ambulatory Mariluz Diaz Other [facility] Other Start: 05-06-2023 Patient encounter procedure Mariluz Diaz [facility] Start: 05-03-2023 End: 05-03-2023 ambulatory Priyank Lloyd Other [place] [employer] Other Start: 05-03-2023 Office outpatient vi sit 15 minutes Priyank Lloyd [facility] Start: 12-12-2021 Encounter for genera l adult medical examination without abnormal findings DR MARILUZ DIAZ [facility] Start: 12-12-2021 End: 12-13-[address] MARILUZ DIAZ Facility:[facility] Start: 12-11-2021 End: 12-12-[address] MARILUZ DIAZ Facility:[facility] Start: 12-11-2021 End: 12-12-2021 Encounter for general adult medical examination without abnormal findings DR MARILUZ DIAZ Facility:[facility] Start: 08-15-2021 End: 08-16-[address] MARILUZ DIAZ Facility:[facility] Start: 05-29-2021 End: 05-29-[address] LINDA JACOBO Facility:[facility] Start: 05-22-2021 Encounter for other preprocedural examination DR LINDA JACOBO [facility] Start: 05-22-2021 Encounter for preprocedural cardiovascular examination DR LINDA JACOBO [facility] Start: 05-22-2021 Encounter for preprocedural laboratory examination DR LINDA JACOBO [facility] Start: 05-19-2021 End: 05-20-[address] LINDA JACOBO Facility:[facility] Start: 05-19-2021 End: 05-20-2021 Encounter for preprocedural laboratory examination DR LINDA JACOBO Facility:[facility] Start: 05-02-2021 End: 05-03-[address] MARILUZ DIAZ Facility:[facility] Start: 01-20-2021 End: 01-20-[address] LINDA JACOBO Facility:[facility] Start: 01-15-2021 End: 01-16-[address] LINDA JACOBO Facility:[facility] Procedures Date Procedure Procedure Detail Performing Clinician Start: 03-05-2025 CRYOTHERAPY SKIN LESION Attila JOSEPH Work Phone: Start: 02-02-2025 CRYOTHERAPY SKIN LESION Attila JOSEPH Work Phone: Start: 12-25-2024 CRYOTHERAPY SKIN LESION Attila JOSEPH Work Phone: Start: 11-09-2024 TB CREATININE Monse Cardenas MD Work Phone: Start: 05-29-2021 Cystopexy STEFFANY SCHNEIDER Start: 01-20-2021 Cystourethroscopy wi dilation of urethral stricture STEFFANY ANDERSEN Start: 10-25-2013 Colonoscopy STEFFANY SCHNEIDER Appendectomy STEFFANY ANDERSEN Bilateral tubal ligation AMBROSIO ANDERSEN Comment on above: Cholecystectomy STEFFANY LENTZ Plan of Treatment Date Care Activity Detail Author Start: 12-26-2025 End: 12-26-2025 Patient encounter procedure 12/26/2025 1:10 PM EST Office Visit [facility] [address] [place] [address] Attila Alvarado PA [address] [place], [place] [id number] [facility] Start: 05-02-2025 End: 05-02-2025 Patient encounter procedure 05/02/2025 1:00 PM EDT Office Visit [facility] [address] [place] [address] Attila Alvarado PA [address] [place] [address] [facility] Start: 04-04-2025 End: 04-04-2025 Patient encounter procedure [facility] Comment on above: Arrived Start: 03-05-2025 End: 03-05-2025 Patient encounter procedure [facility] Comment on above: Arrived Start: 02-02-2025 End: 02-02-2025 Patient encounter procedure [facility] Comment on above: Arrived Start: 12-25-2024 End: 12-25-2024 Patient encounter procedure [facility] Comment on above: Arrived Start: 11-28-2024 End: 11-28-2024 Patient encounter procedure [facility] Comment on above: Arrived Start: 10-31-2024 End: 10-31-2024 Patient encounter procedure 10/31/2024 1:40 PM EST Office Visit [facility] [address] [facility] [address] [place] [address] Monse Cardenas MD [address] [facility] [address] [place] [address] Arrived [facility] Comment on above: Arrived Comprehensive metabo lic 2000 panel - Serum or Plasma [facility] MG Breast - bilatera l Screening [facility] Immunizations Immunization Date Immunization Notes Care Provider Fa cility 08-15-2021 SARS-CoV-2 (COVID-19 ) mRNA-[id number] vaccine STEFFANY GANESH [facility] 11-20-2020 SARS-CoV-2 (COVID-19 ) mRNA-1273 vaccine STEFFANY GANESH [facility] 11-11-2020 SARS-CoV-2 (COVID-19 ) mRNA-1273 vaccine STEFFANY GANESH [facility] 10-23-2020 SARS-CoV-2 (COVID-19 ) mRNA-[id number] vaccine STEFFANY GANESH [facility] 10-22-2020 SARS-CoV-2 (COVID-19 ) mRNA-1273 vaccine STEFFANY GANESH [facility] 09-07-2018 influenza virus vaccine, unspecified formulation STEFFANY GANESH [facility] Payers Date Payer Category Payer Private Health Insurance AARP mber [id number] 2023 Medicare [id number] 2023 Medicare MEDICARE [id number] 2023 Unknown [id number] 2023 Medicare [id number] 2019 Unknown [id number] 1959 Self-pay [id number] 1960 Unknown [id number] 2.16840.1.140249.3.579.2. 593 1958 Unknown [id number] .840.1.338113.3.579.2. 593 1958 Unknown [id number] 2.0.1.716055.3.579.2. 593 1958 Unknown [id number] 2.16.840.1.701288.3.579.2. 593 1958 Unknown [id number] 2.16.840.1.496028.3.579.2. 593 1958 Unknown [id number] 2.16.840.1.888793.3.579.2. 593 1958 Unknown [id number] 2.16.840.1.289989.3.579.2. 593 1958 Unknown [id number] 2.16.840.1.583612.3.579.2. 727 1958 Unknown [id number] 2.16.840.1.726397.3.579.2. 1259 1958 Unknown [id number] 2.16.840.1.933415.3.579.2. 1259 1958 Unknown [id number] 2.16.840.1.754103.3.579.2. 1259 1958 Unknown [id number] 2.16.840.1.207212.3.579.2. 1259 1958 Unknown [id number] 2.16.840.1.846887.3.579.2. 1259 1958 Unknown [id number] 2.16.840.1.878830.3.579.2. 1259 Medicare AARP Medicare Ad vantage [facility] [id number] Unknown [id number] 2.16.840.1.878928.3.579.2. 593 Social History Date Type Detail Facility Start: 10-31-2024 End: 04-04-2025 Sex Assigned At [facility] Start: 08-24-2023 Tobacco smoking status Ex-smoker (fi nding) [facility] Tobacco smoking status Never [facility] Start: 1960 Sex Assigned At Female F [facility] smoking consumption unknown [facility] Start: 1960 Sex assigned at Not on file [facility] Start: 10-31-2024 [facility] Never smoked tobacco [facility] Start: 10-31-2024 Tobacco use and exposure Smokeless tobacco non-user [facility] Start: 10-31-2024 End: 04-04-2025 Alcoholic beverage intake Current drinker of alcohol (finding) [facility] Start: 10-31-2024 End: 04-04-2025 History of Social function [facility] Functional Status Date Assessment Result Facility 08-24-2023 Functional Status N/A [facility] Clinical Notes 05-03-2023 to 04-04-2025 JAKE Angelo - 04/04/2025 2:00 PM JAKE Barnard - 03/05/2025 1:10 PM JAKE Barnard - 02/02/2025 9:30 AM JAKE Barnard - 12/25/2024 2:50 PM EST Note Date & Type Note Facility 04-04-2025 History of Present illness Narrative Follow up Diagnosis: Warts Location: left heel Last visit: 1 month ago Symptoms: none Status: feels like they're gone Procedure performed: Cryotherapy Date of procedure: 03/05/2025 Number of treatments to date: 3 All pertinent medical history, medications, and allergies were reviewed. General Exam: alert, oriented to person, place, and time, normal affect, well appearing Accompanied by spouse A focused exam completed based on patient reported problems, see below: Skin Exam 1. OTHER VIRAL WARTS Left Plantar Surface of Heel Resolved today. Plan to follow up for any recurrence. Next Visit: as scheduled documented in this encounter [facility] 03-05-2025 History of Present illness Narrative Images from the original note were not included. Follow up Diagnosis: Warts Location: left heel x 3 and left 3rd finger Last visit: 1 month ago Symptoms: none Status: feels like they're gone Procedure performed: Cryotherapy Date of procedure: 02/02/2025 Number of treatments to date: 2 All pertinent medical history, medications, and allergies were reviewed. General Exam: alert, oriented to person, place, and time, normal affect, well appearing Accompanied by spouse A focused exam completed based on patient reported problems, see below: Skin Exam 1. COMMON WART (2) Left Lateral Plantar Surface, Left Plantar Surface of Heel Erythematous verrucous papules on the left heel. Smaller today. Clear on the left 3rd finger. Patient and family member was counseled regarding warts. Treatment options were discussed including cryotherapy, shelbie antigen injections, and topical Cantharidin. It was explained that it typically requires multiple treatments before the wart(s) completely resolve. The importance of following up every 3-4 weeks was emphasized. Encouraged OTC wart removers in between appointments to hasten resolution. Patient elected for cryotherapy today, see procedure note. Diagnosis: Verruca Indication: Inflamed Consent: Verbal consent was obtained and risks were discussed, including, but not limited to risks of scarring, darker or antenna engineer pigmentary changes, recurrence, incomplete removal and infection. Method: Liquid nitrogen was used to treat the lesion(s) with two 5-10 second freeze-thaw cycles Number of lesions treated: 2 Post-procedure instructions: Instructions were given orally and in writing. The office will be contacted if the lesion fails to resolve despite treatment, or if a side effect develops such as abnormal crusting, scabbing, redness or tenderness Cryotherapy, skin lesion - Left Lateral Plantar Surface, Left Plantar Surface of Heel 2. PAIN Next Visit: 1 month documented in this encounter [facility] 02-02-2025 History of Present illness Narrative Images from the original note were not included. Follow up Diagnosis: Warts Location: left heel x 3 and left 3rd finger Last visit: 1 month ago Symptoms: none Status: improved on the finger, smaller on the heel Procedure performed: Cryotherapy Date of procedure: 12/25/2024 Number of treatments to date: 1 All pertinent medical history, medications, and allergies were reviewed. General Exam: alert, oriented to person, place, and time, normal affect, well appearing Accompanied by spouse A focused exam completed based on patient reported problems, see below: 1. Common wart (3) Left 3rd Finger Proximal Interphalangeal Joint, Left Plantar Surface of Heel (2) Erythematous verrucous papules. Improving, smaller today. Patient and/or family member was counseled regarding warts. Treatment options were discussed including cryotherapy, shelbie antigen injections, and topical Cantharidin. It was explained that it typically requires multiple treatments before the wart(s) completely resolve. The importance of following up every 3-4 weeks was emphasized. Encouraged OTC wart removers in between appointments to hasten resolution. Patient elected for cryotherapy today, see procedure note. Diagnosis: Verruca Indication: Inflamed Consent: Verbal consent was obtained and risks were discussed, including, but not limited to risks of scarring, darker or antenna engineer pigmentary changes, recurrence, incomplete removal and infection. Method: Liquid nitrogen was used to treat the lesion(s) with two 5-10 second freeze-thaw cycles Number of lesions treated: 3 Post-procedure instructions: Instructions were given orally and in writing. The office will be contacted if the lesion fails to resolve despite treatment, or if a side effect develops such as abnormal crusting, scabbing, redness or tenderness Cryotherapy, skin lesion - Left 3rd Finger Proximal Interphalangeal Joint, Left Plantar Surface of Heel (2) 2. Pain Next Visit: 1 month documented in this encounter [facility] 12-25-2024 History of Present illness Narrative Images from the original note were not included. Skin Check Location: Patient requests a full body skin examination Dermatologic history: no history of skin cancer, no history of atypical moles, no family history of melanoma Last visit: First skin exam New patient Lesions: Location: left heel, left 3rd finger Duration: months Quality: tender at times Modifying factors: worse when getting out of the shower, aggravated by picking Associated symptoms: ' wart' Treatments: none Location # 2: scalp Duration: off and on for years Quality: denies pain, denies itch, denies bleeding Modifying factors: aggravated by picking Associated symptoms: feels like pimples Treatments: none today; was told to use a shampoo by DP, but they don't make it anymore All pertinent medical history, medications, and allergies were reviewed. General Exam: alert, oriented to person, place, and time, normal affect, well appearing Unaccompanied Scalp, Examined , exam limited by hair Right leg Examined Head, Face Examined Left leg Examined Neck Examined Right foot Examined Chest Examined Left foot Examined Back Examined Buttocks Examined Abdomen Examined Digits,nails: Examined Right arm Examined Left arm Examined Lymphatics: Not examined Hands Examined 1. Bacterial folliculitis Mid Parietal Scalp Clear today. Discussed that folliculitis is a common condition in which the hair follicles become infected and can be symptomatic. Recommend patient use OTC Selsun Blue shampoo. Notify office if failing to improve despite treatment. 2. Seborrheic keratosis Stuck on verrucous, variably pigmented papules and plaques. Patient was counseled regarding these benign growths. Removal is normally not necessary, but they may be removed if they are symptomatic or for cosmetic reasons. Literature provided. 3. Melanocytic nevus of trunk Scattered benign appearing, regular brown to light brown melanocytic papules and macules with similar morphology Counseled regarding these benign growths. Rarely, a nevus can develop into malignant melanoma, so any changing nevi should be promptly re-evaluated. Monthly self skin exams were recommended. The ABCDEs of Melanoma handout given to patient. Patient was instructed to return to office if new, concerning, or changing lesions occur 4. Common wart (3) Left Plantar Surface of Heel (3) Erythematous verrucous papules. Patient and/or family member was counseled regarding warts. Treatment options were discussed including cryotherapy, shelbie antigen injections, and topical Cantharidin. It was explained that it typically requires multiple treatments before the wart(s) completely resolve. The importance of following up every 3-4 weeks was emphasized. Encouraged OTC wart removers in between appointments to hasten resolution. Patient elected for cryotherapy today, see procedure note. Diagnosis: Verruca Indication: Inflamed Consent: Verbal consent was obtained and risks were discussed, including, but not limited to risks of scarring, darker or antenna engineer pigmentary changes, recurrence, incomplete removal and infection. Method: Liquid nitrogen was used to treat the lesion(s) with two 5-10 second freeze-thaw cycles Number of lesions treated: 4 Post-procedure instructions: Instructions were given orally and in writing. The office will be contacted if the lesion fails to resolve despite treatment, or if a side effect develops such as abnormal crusting, scabbing, redness or tenderness Cryotherapy, skin lesion - Left Plantar Surface of Heel (3) 5. Pain Next Visit: 1 month (warts)//1 year (skin exam) documented in this encounter [facility] 11-28-2024 History of Present illness Narrative Subjective Patient ID: Arlene Jack is a 64 y.o. female who presents for Ear Problem (Hearing loss per motorcycle delivery driver) No AN evident on pt's MRI. Still using flonase. No family history on file. Active Ambulatory Problems Diagnosis Date Noted No Active Ambulatory Problems Resolved Ambulatory Problems Diagnosis Date Noted No Resolved Ambulatory Problems Past Medical History: Diagnosis Date HL (hearing loss) Past Surgical History: Procedure Laterality Date BLADDER NECK SUSPENSION CHOLECYSTECTOMY TUBAL LIGATION No Known Allergies Current Outpatient Medications on File Prior to Visit Medication Sig Dispense Refill fluticasone (Flonase) 50 MCG/ACT nasal spray 2 sprays on left twice daily. Shake gently. Before first use, prime pump. After use, clean tip and replace cap. 48 g 3 No current facility-administered medications on file prior to visit. Objective Last Recorded Vitals There were no vitals filed for this visit. ENT Physical Exam Ear Ear Canals: right ear canal normal; left ear canal normal; Tympanic Membranes: right tympanic membrane normal; left tympanic membrane normal; Ear comments: Pete tymps normal. Assessment/Plan Diagnoses and all orders for this visit: ETD (Eustachian tube dysfunction), right Mixed conductive and sensorineural hearing loss of right ear with restricted hearing of left ear ETD resolved and I suspect the right ABG is resolved or sig decreased. There is no AN. Pt may now benefit from a RT hearing aid documented in this encounter [facility] 10-31-2024 History of Present illness Narrative Subjective Patient ID: Arlene Jack is a 64 y.o. female who presents for Hearing Loss Pt has been followed by an motorcycle delivery driver since 2021. 12/2021 audio showed essentially normal left hearing and mild RT CHL with a 10-25dB ABG. Repeat audio 09/18/24 shows some progression pete, but most notably on the right, with [...] tx her ETD documented in this encounter [facility] 08-24-2023 Hospital Discharge instructions Patient Education 08/24/2023 11:29:02 Urethral Stricture [...] reconstructed. Follow these instructions at home: Take [id number] and prescription medicines only as told by [...] provider. Document Revised: 08/18/2022 Document Reviewed: 08/18/2022 [employer] Patient Education 2022 [employer]. Follow Up Care 07/30/2023 08:37:43 With:STEFFANY ANDERSEN PA-C, URL Address: [address] [place] [address] [phone] When: only if needed [facility] 05-06-2023 Evaluation note Encounter Date Diagnosis Assessment [...] reviewed and amended by provider signed below. [facility] Other 07-13-2023 Evaluation note* Encounter Date Diagnosis [...] reviewed and amended by provider signed below. [facility] Other 07-10-2023 Evaluation note* Encounter Date Diagnosis Assessment Notes Treatment Notes Treatment Clinical Notes Apr, Acute non-recurrent maxillary sinusitis (ICD-10 - J01.00) Instructed to use Robitussin or Mucinex for cough, saline or Flonase NS for congestion, Tylenol for pain and fever. [facility] Other Evaluation + Plan note No data available for this section [facility] evaluation noteNo InformationNort [employer] Other Evaluation note* Diagnosis Onset Date Resolution Status Elevated fasting glucose acu te Screening mammogram for breast cancer acute Wellness examination [facility] Work Phone: Evaluation note* Diagnosis Mixed conductive and sensorineural hearing loss of right ear with restricted hearing of left ear- Primary ETD (Eustachian tube dysfunction), right [facility] Diagnosis ETD (Eustachian tube dysfunction), right- Primary Mixed conductive and sensorineural hearing loss of right ear with restricted hearing of left ear [facility] Diagnosis Bacterial folliculitis- Primary Other specified disease of hair and hair follicles Seborrheic keratosis Melanocytic nevus of trunk Benign neoplasm of skin of trunk, except scrotum Common wart Other specified viral warts Pain Generalized pain [facility] Diagnosis Common wart- Primary Other specified viral warts Pain Generalized pain [facility] Diagnosis Common wart- Primary Other specified viral warts Pain Generalized pain [facility] Diagnosis Other viral warts- Primary [facility] N[facility] - Reported* Type Description Date Medical History Incontinence in female Medical History Left medial knee pain Medical History TIA (transient ischemic attack) Surgical History CHOLECYSTECTOMY Surgical History BLADDER SURGERY Surgical History TUBAL LIGATION Surgical History APPENDECTOMY Hospitalization History SEE SURGICAL HX [facility] Other Progress note No data available for this section [facility] Summary Purpose Family History No Family History [...] and content) DATE CREATED AUTHOR 12/17/2021 [facility] DATE CREATED AUTHOR AUTHOR'S ORGANIZ ATION 08/26/2023 [facility] DATE CREATED AUTHOR AUTHOR'S ORGANIZ ATION 04/07/2025 [facility] EPIC REASON FOR VISIT (unrecogniz ed section and content) Reason Comments Hearing Loss Reason Comments Ear Problem Hearing loss per aud iologist Reason Comments Skin Check Reason Comments Verrucous Vulgaris Reason Comments Follow-up Patient Care team informatio n (unrecognized section and content) Team Status: Active Member Role Status Dates Mariluz Diaz MD Primary Care Provider Active Team Status: Inactive Member Role Status Dates Mariluz Diaz MD Primary Care Provide r, Attending Provider Active Start: May 08, 2024 End: May 08, 2024 Foreclosure Paralegal Relationship Specialty Start Date End Date Mariluz Diaz MD [address] [place] [address] PCP - General Family Medicine 09/20/24 Foreclosure Paralegal Relationship Specialty Start Date End Date Mariluz Diaz MD [address] [place] [id number] PCP - General Family Medicine 09/20/24 Foreclosure Paralegal Relationship Specialty Start Date End Date Mariluz Diaz MD [address] [place] [phone] PCP - General Family Medicine 09/20/24 Foreclosure Paralegal Relationship Specialty Start Date End Date Mariluz Diaz MD [address] [place] [facility] [address] PCP - General Family Medicine 09/20/24 Foreclosure Paralegal Relationship Specialty Start Date End Date Mariluz Diaz MD [address] [place] [facility] [address] PCP - [facility] 09/20/24 Foreclosure Paralegal Relationship Specialty Start Date End Date Mariluz Diaz MD [address] [place] [facility] [phone] PCP - [facility] 09/20/24 Foreclosure Paralegal Relationship Specialty Start Date End Date Mariluz Diaz MD PCP - General Family Medicine 09/20/24 Foreclosure Paralegal Relationship Specialty Start Date End Date Mariluz Diaz MD PCP - General Family Medicine 09/20/24 Foreclosure Paralegal Relationship Specialty Start Date End Date Mariluz Diaz MD PCP - General Family Medicine 09/20/24 Foreclosure Paralegal Relationship Specialty Start Date End Date Mariluz Diaz MD PCP - General Family Medicine 09/20/24 Goals [...] BE BASED ON THE PRIMARY CLINICAL RECORDS. [facility], [facility]. provides no warranty or guarantee of the accuracy or completeness of information in this document.
== END 2025-05-21 15:06 | disposition home or self-care (01) ==
LOC: RAD 15:06
PROVIDERS: PCP Family Medicine; Visit Provider Family Medicine
DX: M79.671 Pain in right foot (principal); M77.31 Calcaneal spur, right foot
CPT/HCPCS: 73630

== ENCOUNTER 2025-09-17 14:22 | Outpatient (OUT) | payer MEDICARE, SELFPAY ==
--- NOTE | 2025-09-17 | XR_ITS ---
The [address] [address] Patient Name: ARLENE JACK MRN: [id number] date: 1960 Sex: F Assigned Patient Location: [facility] Current Patient Location: [facility] Accession/Order Number: [id number] Exam Date: 09/17/2025 14:38 Report Date: 09/17/2025 16:42 At the request of: SAKINA DIAZ MD Procedure: XR shoulder RT min 2V XR shoulder RT min 2V 09/17/2025 2:43 PM SIGNS AND SYMPTOMS: ^Deltoid tendonitis of right shoulder PROTOCOL: 3 views of the right shoulder COMPARISON: None FINDINGS: Mild degenerative changes are noted in the glenohumeral joint. The acromioclavicular joint is preserved. Is no fracture or dislocation. The visualized right hemithorax is grossly intact. XR/XR shoulder RT min 2V IMPRESSION: No fracture or dislocation. Mild degenerative changes are noted in the right shoulder. Impression dictated by: Harvey Paz M.D. 09/17/2025 4:42 PM Dictation Location: [place] [address] Electronically authenticated by: [id number] Y Date: 09/17/2025 16:42
--- OUTSIDE RECORDS SUMMARY | 2025-09-17 09:08 | XMS_ITS | Continuity of Care Document ---
Author Organization [facility] Address [address] [place] [address] Phone Care Team Providers Care Department Administrator Name Role Phone Mariluz Booker MD Primary Care Provider Mariluz Booker MD Attending Provider [phone] Care Teams Patient Care Team Team Status: Active Member Role/Relationship Status Dates Mariluz Booker MD Primary Care Provider Active Patient Care Team Team Status: Inactive Member Role/Relationship Status Dates Mariluz Booker MD Primary Care Provider Active Start: September 17, 2025 End: September 17, 2025Mariluz Booker MDAttending ProviderActiveStart: September 17, 2025 End: September 17, 2025 Chief Complaint and Reason for Visit Chief Complaint Admit Date shoulder pain September 17, 2025 1:22pm Reason for Visit Admit Date Deltoid tendonitis of right shoulder Nov ember 2024 1:22pm Medial epicondylitis, right elbow Novemb er 2024 1:22pm Reason for Referral Type Reason(s) Provider Provider Contact Information P rovider Address Start Date Deltoid tendonitis of right shoulder Medial epicondylitis of right vkxtgI41.81 - Other shoulder lesions, right shoulder,M77.01 - [facility] Allergies, Adverse Reactions, Alerts Allergen Type Severity Reaction Last Updated Verified Status No Known Allergies Allergy Unknown September 17, 2025 1:40pmYesActive Social History Smoking Status Status Start Date End Date Date of Observa tion Never smoked tobacco (finding) May 21, 2025 2:09pm Observation Status Observation Response Date of Response Legal Sex Female (finding) Sex Assigned At BirthFemaleJuly 1959 Family History Relationship Condition Age at Onset Recorded Date/T nette brother History of stroke Unknown fatherMalignant neoplasmUnknownDeceasedUnknownmotherDeceasedUnknownDiabetes mellitusUnknownsisterDiabetes mellitusUnknown Problems Active Problems Problem Diagnosis/Recorded Date Onset Date Stat us Elevated fasting glucose May 08, 2024 12:46pm Unkno wn Active Encounter for Medicare annua l wellness exam May 22, 2025 11:44am Unknown Active Medial epicondylitis, right elbow September 17, 2025 1:55pm Unknown Active Screening mammogram for breast cancer May 08, 2024 12:43pm Unknown Active Deltoid tendonitis of right shoulder September 17 1:55pm Unknown Active Wellness examination May 08, 2024 12:46pm Unknown Active Well woman exam with routine gynecological exam May 22, 2025 11:44am Unknown Active Right foot pain May 21, 2025 1:25pm Unknown Ac tive Medications Medication Status Dose Units Route Directions Qty Days Refills S tart Date Stop Date End Date Reason(s) Instructions Adherence Valacyclovir (Valtrex) 1 gram tablet Discontinued 2000 MG PO Twice daily 4 1January 2024 12:00amJuly 2024 1:16pmTerbinafine Hcl 250 mg tablet Hbkfsytltvdk1PTMPVNthbsFqmx 2023 11:00pmJuly 2023 12:26pm FreeTextSi tablet Orally Once a day; Note: Source Status: Start; Provider: Jhony Mcgraw EEtodolac 500 mg sitzepFvzmwtvzrhng188LCPTZgxhn dailySeptember 17, 2025 12:00amNovember 2024 2:03pmCelecoxib (Celebrex) 200 mg capsuleActive 319YJDLExjbf699Hcxskvxo 24th, 2025 12:00amComplies with drug therapy Vital Signs Vital Reading Result Reference Range Collection Date/Time Height 61 [in_i] September 17, 2025 1:07llTxznjz39.66 kgSeptember 17, 2025 1:33pmHeart Rate85 /ons08-882SbbrtfydSeptember 17, 2025 1:33pmRespiratory rate16 /udn96-60HyhtdjbvSeptember 17, 2025 1:33pmOxygen saturation by Pulse vletyweb13 %95-100September 17th, 2025 1:33pmBP Mcjsqkpq407 mm[Hg]100-140Nov2024 1:33pmBP Ckyedzhnp63 mm[Hg]60-100Nov2024 1:33pmBMI (Body Mass Index)29.8 kg/b6EkrylcktSeptember 17, 2025 1:33pm Advance Directives Advance Directive Response Recorded Date/ Time Advance Directives No May 08 12:14pm Insurance Providers Guarantor Maria T Hodge Address [address] [facility] [address] Info.Home Phone: Coverage Status Update:2025 Payer Group Member ID Coverage Type Subscriber Relationship to Subscriber Effective Date Expiration Date [employer] Access [address] [address] [facility] [address] Work Phone: [phone] [id number] Weber Id: [id number] [address] [facility] [address] Home Phone: SelfAARP Medicare Advantage PFFS [id number] Weber Id: [id number] [address] [facility] [address] Home Phone: Self Encounters Encounter Location(s) Arrival/Admit Date Discharge/Departure Date Discharge/Departure Disposition Provider(s) Departed Physician/ Provider Office Visit -[facility] September 17, 2025 1:22pm September 17, 2025 2:05pm Discharged to home care or self care (routine discharge) Mariluz Booker MD Recent Diagnosis Onset Date Admit Date Deltoid tendonitis of right shoulder Unknown September 17, 2025 1:22pm Medial epicondylitis, right elbow Unknown September 17, 2025 1:22pm Assessments Diagnosis Onset Date Resolution Status Admit Date Deltoid tendonitis of right shoulder acuteNov2024 1:22pmMedial epicondylitis, right elbowacuteNov2024 1:22pm Plan of Treatment Future Tests Future scheduled test information is unavailable Pending Tests Test Name Ordered Date Scheduled Date XR shoulder RT min 2V* September 17, 2025 1:58p m Future Visits Future appointment information is unavailable Future Procedures Future procedure information is unavailable Future Medications Future medication information is unavailable Patient Instructions Patient instructions are unavailable Hospital Discharge Instructions Ambulatory Orders* Referral to Orthopedic Surgery Location: None Selected
--- OUTSIDE RECORDS SUMMARY | 2025-09-17 14:29 | XMS_ITS | CCD ---
Author Organization [facility] Care Team Providers Care Bar Pointer Name Role Phone JOE, DR MARILUZ Buenrostro [...] Unavailable DIAZ, DR MARILUZ Buenrostro Admitting Unavailable ZIEBMYRIAM, DR NARENDRA Zelaya Consulting Unavailable DIAZ, DR MARILUZ Buenrostro Consulting Unavailable DIAZ, DR MARILUZ Buenrostro Primary Care Unavailable FLOWER, CLARISSA Consulting Unavailable ROSS, CLARISSA Attending Unavailable ROSS, CLARISSA Admitting Unavailable JACOBO, DR MCKEON Admitting Unavailable JACOBO, DR MCKEON Consulting Unavailable JACOBO, DR MCKEON Attending Unavailable DIAZ, DR MARILUZ Buenrostro Primary Care Unavailable JACOBO, DR MCKEON Admitting Unavailable JACOBO, DR MCKEON Consulting Unavailable JACOBO, DR MCKEON Attending Unavailable IDAZ, DR MARILUZ Buenrostro Primary Care Unavailable DIAZ, DR MARILUZ Buenrostro Referring Unavailable JACOBO, DR MCKEON Consulting Unavailable JACOBO, DR MCKEON Attending Unavailable DIAZ, DR MARILUZ Buenrostro Primary Care Unavailable JACOBO, DR MCKEON Admitting Unavailable SHELBY MIX Consulting Unavailable Priyank Lloyd Unavailable Mariluz Diaz Unavailable MARILUZ DIAZ Primary Care Physician NORBERTO ANDERSEN Attending Unavailab Jeremie MARTINEZ, Mariluz Primary Care Provider Mariluz Diaz MD Primary Care Provider MONSE CARDENAS Attending Unavailable ATTILA ALVARADO Attending Unavailable ATTILA ALVARADO Attending Unavailable ATTILA ALVARADO Attending Unavailable ATTILA ALVARADO Attending Unavailable MONSE CARDENAS Attending Unavailable Mariluz Diaz MD Primary Care Provider Mariluz Diaz MD Attending Provider Mariluz Diaz Attending Unavailable Mariluz Diaz Admitting Unavailable Mariluz Diaz MD Primary Care Provider [phone] Allergies Allergy ClassificationReported Allergen(s)Allergy TypeDate of OnsetReaction(s) Facility (1 source)No Known Medication Allergies; Translations: [No Known Medication Allergies]Propensity to adverse reactions (disorder)[facility] Repository Medications Current Medications MedicationDrug Class(es)DatesSig (Normalized)Sig (Original)azithromycin 250 mg oral tablet (5 sources)Macrolide AntimicrobialStart: 01-33-2086Tikvueoxhupu 250 MG as directed Orally daily for 5 days Apr, Activefluticasone propionate 0.05 mg/actuat metered dose nasal spray (19 sources)CorticosteroidStart: 91-55-6767codozisjwid (Flonase) 50 MCG/ACT nasal spray Indications: ETD (Eustachian tube dysfunction), right 2 sprays on left twice daily. Shake gently. Before first use, prime pump. After use, clean tip and replace cap. 48 g 3 10/31/2024 ActiveNo Name (No Known Home Meds) (2 sources)Start: 70-63-1119Sy Name (No Known Home Meds) Active May 21, 2025 12:00am Completed/Discontinued Medications MedicationDrug Class(es)DatesSig (Normalized)Sig (Original)terbinafine 250 mg oral tablet (5 sources)Allylamine AntifungalStart: 05-05-2024 End: 96-82-5391wtlv 1 tablet by mouth once dailyTerbinafine Hcl 250 mg tablet Discontinued 1 TAB PO Daily May 05, 2024 12:00am May 08, 2024 1:26pm FreeTextSi tablet Orally Once a day; Note: Source Status: Start; Provider: Joe Mcgraw EStart: 54-69-5005cogv 1 tablet by mouth every twenty-four hours Terbinafine HCl 250 MG 1 tablet Orally Once a day for 10 day(s) May, ActivevalACYclovir 1000 mg oral tablet (2 sources)Herpesvirus Nucleoside Analog DNA Polymerase Inhibitor, Herpes Simplex Virus Nucleoside Analog DNA Polymerase Inhibitor, Herpes Zoster Virus Nucleoside Analog DNA Polymerase InhibitorStart: 11-10-2024 End: 24-05-1236Hbahlmhkowio (Valtrex) 1 gram tablet Discontinued 2000 MG PO Twice daily 4 November 10, 2024 1:00am May 21, 2025 2:16pm Problems Active Problems Problem ClassificationProblemDateDocumented DateEpisodic/ChronicChronic obstructive pulmonary disease and bronchiectasis (2 sources)Bronchitis, not specified as acute or chronicEpisodicDiabetes mellitus without complication (4 sources)Hyperglycemia; Translations: [Impaired fasting glucose]05-08-2024 EpisodicGenitourinary symptoms and ill-defined conditions (12 sources)Stress incontinence (female) (male); Translations: [Urge incontinence]Onset: 73-73-3330GdcrrwfGdbnntbfjpznl symptoms and ill-defined conditions (3 sources)Retention of urine, unspecified; Translations: [Incomplete emptying of bladder]Onset: 066327-55-8852ZlfpzywhPaefxkqafi disorders (3 sources)Postmenopausal atrophic vaginitis; Translations: [Atrophic vaginitis] Onset: 99-44-0462UyhufbjAhhru and unspecified benign neoplasm (2 sources)Melanocytic nevus of trunk; Translations: [Melanocytic nevi of trunk] 78-14-7685XtecfcvnBoniu circulatory disease (2 sources)Personal history of transient ischemic attack (TIA), and cerebral infarction without residual deficits; Translations: [PERS HX TIA AND CI NO RESID DEFICIT]Onset: 94-94-4892ZntdwbenBcqax connective tissue disease (4 sources)Pain in right foot; Translations: [Pain in right foot]05-21-2025 EpisodicOther diseases of bladder and urethra (2 sources)Urethral stricture; Translations: [Unspecified urethral stricture, female]Onset: 91-82-8576EzzhsohpEzqev ear and sense organ disorders (4 sources)Mixed conductive AND sensorineural hearing loss; Translations: [Mixed conductive and sensorineural hearing loss, unilateral, right ear with restricted hearing on the contralateral side]43-46-7462NntuzuxMsrkc non- traumatic joint disorders (4 sources)Arthralgia of the lower leg; Translations: [Pain in left knee] EpisodicOther screening for suspected conditions (not mental disorders or infectious disease) (11 sources)Encounter for screening mammogram for malignant neoplasm of breast; Translations: [Patient encounter status]Onset: 71-61-3797JihebngmBjyyz skin disorders (2 sources)Bacterial folliculitis; Translations: [Other specified follicular disorders]90-53-4550OazqxiipCubhx skin disorders (2 sources)Seborrheic keratosis; Translations: [Other seborrheic keratosis] 10-07-2059EaepzeraUhaeb upper respiratory infections (1 source)Acute maxillary sinusitis, unspecifiedEpisodicOtitis media and related conditions (4 sources)Dysfunction of right eustachian tube; Translations: [Unspecified Eustachian tube disorder, right ear]58-58-4076VimrsplzEujbkzau codes; unclassified (6 sources)Pain; Translations: [Pain, unspecified]24-07-8107PdtkvwctXtnedqufj cerebral ischemia (7 sources)Transient cerebral ischemia; Translations: [Transient cerebral ischemic attack, unspecified]ChronicUnclassified (1 source)CONTACT W/AND (SUSP) EXPOS COVID-19; Translations: [CONTACT W/AND (SUSP) EXPOS COVID-19]Onset: 29-98-5170Tjgoljyhckxh (1 source)Patient encounter -64-2433Nmhuh infection (8 sources)Verruca vulgaris; Translations: [Other viral warts]01-87-4526Qdwybhlm Past or Other Problems Problem ClassificationProblemDateDocumented DateEpisodic/ChronicContraceptive and procreative management (1 source)Tubal ligation status; Translations: [TUBAL LIGATION STATUS]Onset: 82-53-1137TpyhhyopYyzklmynlobop and screening for infectious disease (4 sources)Encounter for immunization; Translations: [ENCOUNTER FOR IMMUNIZATION]Onset: 87-39-3191QiiqqezdGhpif aftercare (1 source)FPC (current) use of anticoagulants; Translations: [TEACHERS ASSISTANT CURRNT USE ANTICOAGULANTS]Onset: 58-89-0062FiddgzqxLtlyv diseases of bladder and urethra (1 source)Unspecified urethral stricture, female; Translations: [UNSP URETHRAL STRICTURE FEMALE]Onset: 55-90-8529HmecxdrfXeyknams codes; unclassified (1 source)Acquired absence of other specified parts of digestive tract; Translations: [ACQ ABSENCE OTH PART DIGESTV TRACT]Onset: 72-48-6311Gbatxrty Screening and history of mental health and substance abuse codes (1 source)Personal history of nicotine dependence; Translations: [PERSONAL HISTORY OF NICOTINE DEPEND]Onset: 41-81-3809Taruonij Results Test NameValueInterpretationReference RangeFacilityPap IG, CNT, HPVrfx 16/18,45 on 38-74-9237FLB Chlamydia REBECCA.NegativeNormalNegativeThe [facility] / Nhrmc Physician GroupComment on above:Performed By: #### PAP [id number] #### [facility] ,PAP Gonococcus.NegativeNormalNegativeThe [facility] / Nhrmc Physician GroupComment on above:Performed By: #### PAP [id number] #### [facility] ,PAP HPV AptimaNegativeNormalNegativeThe [facility] / Nhrmc Physician GroupComment on above:Result Comment: This nucleic acid amplification test detects fourteen high- risk HPV types (16,18,31,33,35,39,45,51,52,56,58,59,66,68) without differentiation.Performed By: #### PAP [id number] #### [facility] ,Pap Image GuidedNoteNormal.The [facility] / Nhrmc Physician GroupComment on above:Result Comment: TESTS RESULT FLAG UNITS REF RANGE LAB Clinician Provided Cytology Information No. of containers..01 ThinPrep Vial DIAGNOSIS: 01 NEGATIVE FOR INTRAEPITHELIAL LESION OR MALIGNANCY. Specimen adequacy: 01 Satisfactory for evaluation. No endocervical component is identified. Performed by: Enid Borja Tufting Supervisor (ASCP) . 01 Note: Note 01 The Pap smear is a screening test designed to aid in the detection of premalignant and malignant conditions of the uterine cervix. It is not a diagnostic procedure and should not be used as the sole means of detecting cervical cancer. Both false-positive and false-negative reports do occur. Test Methodology: Note 01 This liquid based ThinPrep(R) pap test was screened with the use of an image guided system. HPV Genotype Reflex Note 01 Criteria not met, HPV Genotype not performed. FLAG LEGEND: L-Low Normal,H-High Normal,LL-Alert Low,HH-Alert High <-Panic Low,>-Panic High,A-Abnormal,AA-Critical Abnormal Performed at: [address] [address] Jaymie Rivera MD, Myddjcddk By: #### PAP [id number] #### [facility] ,PAP Trichomonas VaginalisNegativeNormalNegativeThe [facility] Comment on above:Result Comment: Performed at: WB - [facility] [id number] Quality Control Microbiologist: Jaymie Rivera MD, Phone: [phone] Performed at: =G - [facility] [address] [id number] Quality Control Microbiologist: Jaymie Rivera MD, Phone: [phone] PERFORMED BY: [address] [address] PATHOLOGIST GUEST RELATION OFFICER KACEY SCHOFIELD M.D.Performed By: #### PAP [id number] #### [facility] ,No Panel Informationon 60-56-8761WMPC HealthcareNo Panel Informationon 52-78-8835PNVI HealthcareNo Panel Informationon 20-90-0651NAGVMercy Hospital JoplinI HEAD/BRAIN WO/W CONTRon 24-17-9306K[address] [address] Magnetic Resonance Report Signed Patient: ARLENE JACK MR#: [id number] : 1960 Acct:[id number] Age/Sex: 64 / F ADM Date: 11/09/24 Loc: LAB Attending Dr: Monse Cardenas M.D. Ordering Physician: Monse Cardenas M.D. Date of Service: 11/09/24 Procedure(s): MR head/brain wo/w con Accession Number(s): [id number] cc: Mariluz Diaz M.D.; Monse Cardenas M.D. [facility] [place] [id number] Patient Name: ARLENE JACK MRN: [id number] date: 1960 Sex: F Assigned Patient Location: LAB Current Patient Location: LAB Accession/Order Number: [id number] Exam Date: 11/09/2024 12:55 Report Date: 11/09/2024 23:08 At the request of: MONSE CARDENAS Procedure: MR head/brain wo/w con EXAM: MR head/brain wo/w con HISTORY: mixed conductive and sensorineural hearing loss of right ear COMPARISON: None. TECHNIQUE: Multisequence MRI brain was performed with and without intravenous contrast. FINDINGS: There is no restricted diffusion to suggest acute infarct. There is no midline shift, mass effect, or abnormal extraaxial fluid collections. There are no abnormal parenchymal or leptomeningeal enhancement. The cortical sulci and ventricular system are within normal limits. There are a few nonspecific foci of T2/FLAIR signal abnormality in the osman and supratentorial white matter, likely reflect chronic microvascular ischemic changes. The internal auditory canals and cerebellopontine angles are unremarkable, without masses or abnormal enhancement. The bilateral cranial nerves VII and VIII are unremarkable. No abnormality is seen involving the membranous labyrinth. The major intracranial flow voids are visualized. The cerebellar tonsils are normal in position. The orbits demonstrate no suspicious enhancement or any focal lesions. The paranasal sinuses show no air-fluid level. The mastoid air cells are clear. The calvarium and extracranial soft tissues are unremarkable. MR/MR head/brain wo/w con IMPRESSION: No acute intracranial abnormality or abnormal intracranial enhancement. Clear internal auditory canals and cerebellopontine angles. Minimal chronic microvascular ischemic changes. Electronically authenticated by: MONIQUE CHRISTENSEN Date: 11/09/2024 23:08 Dictated By: MONIQUE CHRISTENSEN M.D. Signed By: 11/09/242309 DD/ 07 TD/TT: Plastic Tile Layer:TBHRadiology, Radiologist, - 11/09/2024 [place] [address] Magnetic Resonance Report Signed Patient: ARLENE JACK MR#: [id number] : 1960 Acct:[id number] Age/Sex: 64 / F ADM Date: 11/09/24 Loc: LAB Attending Dr: Monse Cardenas M.D. Ordering Physician: Monse Cardenas M.D. Date of Service: 11/09/24 Procedure(s): MR head/brain wo/w con Accession Number(s): [id number] cc: Mariluz Diaz M.D.; Monse Cardenas M.D. [facility] [place] [id number] Patient Name: ARLENE JACK MRN: [id number] date: 1960 Sex: F Assigned Patient Location: LAB Current Patient Location: LAB Accession/Order Number: [id number] Exam Date: 11/09/2024 12:55 Report Date: 11/09/2024 23:08 At the request of: MONSE CARDENAS Procedure: MR head/brain wo/w con EXAM: MR head/brain wo/w con HISTORY: mixed conductive and sensorineural hearing loss of right ear COMPARISON: None. TECHNIQUE: Multisequence MRI brain was performed with and without intravenous contrast. FINDINGS: There is no restricted diffusion to suggest acute infarct. There is no midline shift, mass effect, or abnormal extraaxial fluid collections. There are no abnormal parenchymal or leptomeningeal enhancement. The cortical sulci and ventricular system are within normal limits. There are a few nonspecific foci of T2/FLAIR signal abnormality in the osman and supratentorial white matter, likely reflect chronic microvascular ischemic changes. The internal auditory canals and cerebellopontine angles are unremarkable, without masses or abnormal enhancement. The bilateral cranial nerves VII and VIII are unremarkable. No abnormality is seen involving the membranous labyrinth. The major intracranial flow voids are visualized. The cerebellar tonsils are normal in position. The orbits demonstrate no suspicious enhancement or any focal lesions. The paranasal sinuses show no air-fluid level. The mastoid air cells are clear. The calvarium and extracranial soft tissues are unremarkable. MR/MR head/brain wo/w con IMPRESSION: No acute intracranial abnormality or abnormal intracranial enhancement. Clear internal auditory canals and cerebellopontine angles. Minimal chronic microvascular ischemic changes. Electronically authenticated by: MONIQUE CHRISTENSEN Date: 11/09/2024 23:08 Dictated By: MONIQUE CHRISTENSEN M.D. Signed By: 11/09/247 DD/ TD/TT: Plastic Tile Layer: [facility] HospitalRadiology Study observation (narrative)[facility]woodMRI [facility]/BRAIN WO/W CONTROrdered By: Radiologist Radiology on 17-93-4897[facility] Work Phone: [facility] CREATININEon 99-60-0477Amxvasnbby [Mass/Vol]0.9 mg/dL0.55 - 1.02 mg/dLNOSt. Luke's HospitalGFR/1.73 sq M.predicted CKD-EPI (S/P/Bld) [Vol rate/Area]>60>=60 mL/min/1.73m 2NOMS HealthcareTBH EGFR-NON AF RUSSIAN>60 >=60 mL/min/1.73m 2NOMS HealthcareCLINISYNCNOMS HealthcareBasophils Auto (Bld) [#/Vol]on 49-94-6068Nbukyeofn (Bld) [#/Vol]0.1 10 3/uL0.0-0.1FWayne HealthCare Main CampusBasophils/100 WBC Auto (Bld)on 10-11-7799Dwbanxlem/100 WBC (Bld) 1.3 %0.2-2.0[facility] HospitalEosinophils/100 WBC Auto (Bld)on 68-23-6827Vrjivcfsxbo/100 WBC (Bld)1.7 %0.9-7.0[facility] Erythrocyte distribution width Auto (RBC) [Ratio]on 57-64-3627Equikayixqf distribution width (RBC) [Ratio]13.2 %11.0-15.0[facility] Hematocrit Auto (Bld) [Volume fraction]on 28-04-9660Mhzotwkqfy (Bld) [Volume fraction]37.5 %36.0-48.0[facility] HospitalHemoglobin [Mass/volume] in Bloodon 34-67-0050Wpmfywobik (Bld) [Mass/Vol]12.3 g/dL12.0-16.0 [facility] HospitalLaboratory - Hematology and Cell countson 40-26-4142Iqhzxplj granulocytes/100 WBC (Bld)0.3 %0.0-0.5FWayne HealthCare Main CampusLeukocytes [#/volume] corrected for nucleated erythrocytes in Blood by Automated counon 05-93-3632WCI corrected for nucl RBC Auto (Bld) [#/Vol]7.1 10 3/uL4.0-11.0[facility] HospitalLymphocytes Auto (Bld) [#/Vol]on 02-74-7191Xpsfzxzkvpn (Bld) [#/Vol]2.8 10 3/uL1.2-3.8[facility] HospitalLymphocytes/100 WBC Auto (Bld)on 05-08-2024 Lymphocytes/100 WBC (Bld)39.1 %20.5-60.0[facility] HospitalMCH Auto (RBC) [Entitic mass]on 98-61-0775JHT (RBC) [Entitic mass]29.4 pg26.7-34.0 [facility] HospitalMCHC Auto (RBC) [Mass/Vol]on 41-35-5506QFCS (RBC) [Mass/Vol]32.8 g/dL29.9-35.2FWayne HealthCare Main CampusMCV Auto (RBC) [Entitic vol]on 25-49-7211RQC (RBC) [Entitic vol]89.7 fL81.0-99.0[facility] HospitalMonocytes Auto (Bld) [#/Vol]on 47-50-0732Ubrquidcj (Bld) [#/Vol]0.5 10 3/uL0.3-0.8[facility] HospitalMonocytes/100 WBC Auto (Bld)on 43-79-7250Scblfehnw/100 WBC (Bld)6.3 %1.7-12.0[facility] HospitalNeutrophils Auto (Bld) [#/Vol]on 94-04-6740Cdvsozhznaf (Bld) [#/Vol]3.7 10 3/uL1.4-6.5FWayne HealthCare Main CampusNeutrophils/100 WBC Auto (Bld)on 29-76-2934Qddxvxuzrnd/100 WBC (Bld)51.3 %43.0-75.0[facility] HospitalNo Panel Informationon 27-38-1590Ybgysuqpntm # (Auto)0.1 10 3/uL0.0-0.7FWayne HealthCare Main CampusImmature Granulocyte # (Auto)0.02 10 3/uL0.00-0.03[facility] HospitalPlatelet mean volume Auto (Bld) [Entitic vol]on 57-54-6368Snspijrd mean volume (Bld) [Entitic vol]9.3 fL Low9.5-13.5FWayne HealthCare Main CampusPlatelets Auto (Bld) [#/Vol]on 07-02-4218Llgqrqnhj (Bld) [#/Vol]335 10 3/nT117-772PczxajqsbFayette County Memorial HospitalRBC Auto (Bld) [#/Vol]on 95-44-8370PAF (Bld) [#/Vol]4.18 10 6/uLLow 4.20-5.40[facility] Rehabilitationcreenson 81-36-6335Johozyl 104.170.192.36.7585440081088896393237O0H#1.00TIFFNormalMercer County Community HospitalAmbulatory Visit Summaryon 31-85-8686Uxprguoyhv Visit Summary ARLENE JACK :1960 Visit Date:08/24/2023 Ambulatory Visit Instructions Your Diagnosis Unspecified urethral stricture, female Atrophic vaginitis Stress incontinence Tests Performed Urnls Dip Stick Auto w/o Microscopy POC 67626 Your Care Team Attending Physician - STEFFANY [...] Appointments Follow Up with STEFFANY ANDERSEN PA-C, EM When: Only if needed Where: [address] [place] [address] [phone] Medications What How Much When Comments Stop Taking estradiol topical (Estrace Vaginal Cream 0.1 mg/ g) 1 Gram Vaginal Wednesday & Wednesday Test Results Urnls Dip Stick Auto w/o Microscopy POC 72094 (08/24/2023) Bilirubin Urine Dipstick - Negative Blood Urine Dipstick - Negative Glucose Urine Dipstick - Negative Ketones Urine Dipstick - Negative Leukocytes Urine Dipstick - Negative Nitrite Urine Dipstick - Negative Protein Urine Dipstick - Negative Specific [place] Urine Dipstick - 1.015 Urine Appearance Urine [...] camera on the end (urethroscope) is used tolook at the urethra. How is this treated? This condition is treated with surgery. The type of surgery that you have depends on the severity of your condition. You may have: ? Urethral dilation. In this procedure, the narrow part of the urethra is stretched open (dilated) with dilating instruments or a small balloon. ? Urethrotomy. In this procedure, a urethro (more content not included)...Normal [facility] Educationon 46-29-4880Rlxkkyu Education Urology Urethral Stricture Urethral stricture is [...] dye is injected into the urethra and thenan X-ray is taken. ? Urethroscopy. This is [...] into the urethra, and the narrow part ofthe urethra is cut open with a surgical blade inserted through the urethroscope. ? Open surgery. In this procedure, an incision is made in the urethra, the narrow part is removed, and the urethra is reconstructed. Follow these instructions at home: ? Take jysk-lpl-vlecpkm and prescription medicines only as told by [...] surgery that you have depends on the severityof your condition. ? Contact a health care provider if your symptoms get worse or you have signs of a urinary tract infection. This information is not intended to replace advice given to you by your health care provider. Make sure you discuss any questions you have with your health care provider. Document Revised: 08/18/2022 Document Reviewed: 08/18/2022 ElseSEC Watch Patient Education ? 2022 Action.[facility] Urology Office/Clinic Noteon 96-78-9076Cozliiz Office/Clinic NoteChief Complaint 18m f/u HPI Staff PRW pt [...] THORNTON, STEFFANY Buenrostro, URL Only if needed [address] [place] [address] [phone] Additional Instructions: Patient Education Urethral Stricture Documentation recorded by the buffy Queen accurately reflects the services(s) I performed anddecisions made by me. Authenticated by Steffany Andersen [...] Protein Urine Dipstick: Negative (08/24/23 10:55:00) Specific [place] Urine Dipstick: (more content not included)...[facility] ColumbusComment on above:Result Comment: Electronically Signed By: STEFFANY ANDERSEN PA-C\.br\Date and Time Signed: 08/24/2311:51 EDT\.br\Electronically Co-Signed By: Ashely Queen\.br\Date and Time Co-Signed: 08/24/23 11:36 EDTMG MAMM SCREEN 3D PETE CADon 52-51-2813AM MAMM SCREEN 3D PETE CADPatient: ARLENE JACK Josee Exam Date: 12/12/2021 : 1960 Gender:F Ordering : DR MARILUZ DIAZ M.D. Admission #: [id number] Family : Order #: [id number] CLICK HERE TO VIEW EXAM RADIOLOGY REPORT [...] Treatments None Family Cancers None LOCATION: [facility] BREAST COMPOSITION: Heterogeneously dense,which may obscure [...] by: Narendra Desai M.D. on 12/12/2021 at 13:04[facility] AUTO DIFFon 47-86-0338AGVR #0.1 103/ulNormal0.0-0.1[facility] HospitalComment on above:Performed By: #### CBC #### [facility] [address] [place] [address] Dr. Chasity GonzalezBasophils/100 WBC (Bld)1.4 %Normal0.2-2.0[facility] Comment on above:Performed By: #### CBC #### [facility] [address] [address] [address] Chasity Landrum #0.1 103/ulNormal0.0-0.7ThVeterans Health AdministrationComment on above: Performed By: #### CBC #### [facility] [address] [place] [address] Dr. Chasity Ferreiraosinophils/100 WBC (Bld)1.9 %Normal0.9-7.0[facility] Comment on above:Performed By: #### CBC #### [facility] [address] [place] [address] Dr. Chasity Ferreirarythrocyte distribution width (RBC) [Ratio]12.6 %Hodkyc86.0-15.0 [facility] HospitalComasc[facility] on above:Performed By: #### CBC #### [facility] [address] [place] [address] Dr. Chasity GonzalezHematocrit (Bld) [Volume fraction]40.7 %Ybcpoq85.0-48.0[facility] HospitalComment on above:Performed By: #### CBC #### [facility] [address] [place] [address] Dr. Chasity GonzalezHemoglobin (Bld) [Mass/Vol]13.3 g/cYZbzvmm20.0-16.0[facility] HospitalComment on above:Performed By: #### CBC #### [facility] [address] [place] [address] Dr. Chasity Queen #0.01 10e3/ulNormal0.00-0.03[facility] HospitalComment on above:Performed By: #### CBC #### [facility] [address] [place] [address] Dr. Chasity Queen %0.2 %Normal0.0-0.5The [facility] on above: Performed By: #### CBC #### [facility] [address] [place] [address] Dr. Chasity DockeryH #2.5 103/ulNormal1.2-3.8[facility] HospitalComment on above:Performed By: #### CBC #### [facility] [address] [place] [place] [address] Dr. Chasity Bealmphocytes/100 WBC (Bld)44.3 %Wpyioe36.5-60.0The [facility] on above:Performed By: #### CBC #### [facility] [address] [place] [address] Dr. Chasity ChiuUAL DIFF REQNONormalThe [facility] County HospitalComment on above: Performed By: #### CBC #### [facility] [address] [address] [address] Chasity Mcgill (RBC) [Entitic mass]29.0 rtDswbxq97.7-34.0The [facility] HospitalComment on above:Performed By: #### CBC #### [facility] [address] [place] [address] Dr. Chasity Mcgill (RBC) [Mass/Vol]32.7 g/kVPvqwny05.9-35.2The [facility] HospitalComment on above:Performed By: #### CBC #### [facility] [address] [place] [address] Dr. Chasity Mcgill (RBC) [Entitic vol]88.9 fQKvcpdl85.0-99.0The [facility] HospitalComment on above:Performed By: #### CBC #### [facility] [address] [place] [address] Dr. Chasity Barnes #0.3 103/ulNormal0.3-0.8The [facility] HospitalComment on above:Performed By: #### CBC #### [facility] [address] [place] [address] Dr. Chasity Bernardoocytes/100 WBC (Bld)5.8 %Normal1.7-12.0The [facility] Comment on above:Performed By: #### CBC #### [facility] [address] [place] [address] Dr. Chasity MiltonUT #2.6 103/ulNormal1.4-6.5The [facility] HospitalComment on above:Performed By: #### CBC #### [facility] [address] [place] [address] Dr. Chasity Miltonutrophils/100 WBC (Bld)46.4 %Symipu14.0-75.0The [facility] HospitalComment on above:Performed By: #### CBC #### [facility] [address] [place] [address] Dr. Chasity Dunbarlet mean volume (Bld) [Entitic vol]9.3 fLCritically low 9.5-13.5The [facility] HospitalComment on above:Performed By: #### CBC #### [facility] [address] [address] [address] Chasity GonzalezPLT345 103/fsHubqwu234-306Owh [facility] HospitalComment on above: Performed By: #### CBC #### [facility] [address] [address] [address] Chasity GonzalezRBC4.58 106/ulNormal4.20-5.40The [facility] HospitalComment on above:Performed By: #### CBC #### [facility] [address] [address] [address] Chasity GonzalezWBC5.7 103/ulNormal4.0-11.0The [facility] HospitalComment on above: Performed By: #### CBC #### [facility] [address] [address] [address] Chasity GonzalezGLYCOHEMOGLOBIN A1Con [id number] RECOMMENDATIONADA THERAPEUTIC TARGET 6.0 - 7.0 ACTION SUGGESTED > 7.0NoAdams County Regional Medical CenterComment on above:Performed By: #### A1C #### [facility] [address] [address] [address] Chasity GonzalezGlucose [Mass/Vol]123 mg/dLNoAdams County Regional Medical CenterComment on above:Performed By: #### A1C #### [facility] [address] [address] [address] Chasity GonzalezHbA1c (Bld) [Mass fraction]5.9 %Normal<=6.0The [facility] Comment on above:Performed By: #### A1C #### [facility] [address] [address] [address] Chasity GonzalezLIPID PROFILEon [id number]-HDL RATIO NORMSEE BELOWMiami Valley HospitalComment on above:Result Comment: 3.3 - 4.4 LOW RISK 4.4 - 7.1 AVERAGE RISK 7.1 - 11.0 MODERATE RISK >11.0 HIGH RISKPerformed By: #### CMP, LIPID, TSH #### [facility] [address] [address] [address] Chasity GonzalezCholesterol [Mass/Vol]206 mg/dLCritically high<=200The [facility] on above:Performed By: #### CMP, LIPID, TSH #### [facility] [address] [address] [address] Chasity GonzalezCholesterol in HDL [Mass/Vol]57 mg/dLMiami Valley Hospital Comment on above:Performed By: #### CMP, LIPID, TSH #### [facility] [address] [address] [address] Chasity GonzalezCholesterol in LDL [Mass/Vol]129.6 mg/dLMiami Valley HospitalComment on above:Performed By: #### CMP, LIPID, TSH #### [facility] [address] [place] [address] Dr. Chasity Iversonestercari.total/Cholesterol in HDL [Mass ratio]3.6 {ratio} NormalThe [facility] HospitalComment on above:Performed By: #### CMP, LIPID, TSH #### [facility] [address] [address] [address] Chasity Snow NORMAL> or = 60 mg/dl - LOW CARDIOVASCULAR RISK <40 mg/dl - HIGH CARDIOVASCULAR RISKMiami Valley HospitalComment on above:Performed By: #### CMP, LIPID, TSH #### [facility] [address] [address] [address] Chasity GonzalezLDL CALC NORMALSEE BELOWNoAdams County Regional Medical CenterComment on above:Result Comment: <100 mg/dl OPTIMAL 100 - 129 mg/dl NEAR OR ABOVE OPTIMAL 130 - 159 mg/dl BORDERLINE HIGH 160 - 189 mg/dl HIGH >190 mg/dl VERY HIGH Performed By: #### CMP, LIPID, TSH #### [facility] [address] [address] [address] Chasity GonzalezTriglyceride [Mass/Vol]97 mg/dLNormal<=150[facility] Comment on above:Performed By: #### CMP, LIPID, TSH #### [facility] [address] [address] [address] Chasity BooneLDL CALC19.4 mg/dLNormalThe [facility] HospitalComment on above: Performed By: #### CMP, LIPID, TSH #### [facility] [address] [address] [address] Chasity GonzalezPROF 14(COMP METB)on [id number] [Mass/Vol]4.3 g/dLNormal 3.5-5.0The [facility] HospitalComment on above:Performed By: #### CMP, LIPID, TSH #### [facility] [address] [address] [address] Chasity GonzalezAlbumin/Globulin [Mass ratio]1.1 {ratio}NormalThe [facility] HospitalComment on above:Performed By: #### CMP, LIPID, TSH #### [facility] [address] [address] [address] Chasity Mesa [Catalytic activity/Vol]55 U/KVinvtz62-291Wxm [facility] HospitalComment on above:Performed By: #### CMP, LIPID, TSH #### [facility] [address] [address] [address] Chasity Kim [Catalytic activity/Vol]28 U/LNormal9-52The [facility] Comment on above:Performed By: #### CMP, LIPID, TSH #### [facility] [address] [address] [address] Chasity Felix gap [Moles/Vol]13.7 mmol/LNormalThe [facility] Comment on above:Performed By: #### CMP, LIPID, TSH #### [facility] [address] [address] [address] Chasity Mcclendon [Catalytic activity/Vol]19 U/JQnhlbp01-51Xqu [facility] Hospitalment on above:Performed By: #### CMP, LIPID, TSH #### [facility] [address] [address] [address] Chasity GonzalezBilirubin [Mass/Vol]0.5 mg/dLNormal0.2-1.3The [facility] Comment on above:Performed By: #### CMP, LIPID, TSH #### [facility] [address] [address] [address] Chasity GonzalezCalcium [Mass/Vol]9.4 mg/dLNormal8.4-10.2The [facility] Comment on above:Performed By: #### CMP, LIPID, TSH #### [facility] [address] [address] [address] Chasity GonzalezChloride [Moles/Vol]104 mmol/OJukbwx14-595Zhz [facility] Comment on above:Performed By: #### CMP, LIPID, TSH #### [facility] [address] [address] [address] Chasity GonzalezCO2 [Moles/Vol]27.7 mmol/QYudfsm13.0-30.0[facility] Comment on above:Performed By: #### CMP, LIPID, TSH #### [facility] [address] [place] [address] Dr. Chasity GonzalezCreatinine [Mass/Vol]0.73 mg/dLNormal0.52-1.04The [facility] HospitalComment on above:Performed By: #### CMP, LIPID, TSH #### [facility] [address] [place] [address] Dr. Chasity FerreiraGFR-AF RUSSIAN>60Normal>=60The [facility] HospitalComment on above:Performed By: #### CMP, LIPID, TSH #### [facility] [address] [place] [address] Dr. Chasity Andrew-NON AF RUSSIAN>60Normal>=60The [facility] HospitalComment on above:Performed By: #### CMP, LIPID, TSH #### [facility] [address] [place] [address] Dr. Chasity GonzalezGlobulin (S) [Mass/Vol]3.8 g/dLNormalThe [facility] HospitalComment on above:Performed By: #### CMP, LIPID, TSH #### [facility] [address] [place] [address] Dr. Chasity GonzalezGlucose [Mass/Vol]98 mg/xERstybe26-811XojGuernsey Memorial Hospital Comment on above:Performed By: #### CMP, LIPID, TSH #### [facility] [address] [place] [address] Dr. Chasity GonzalezPotassium [Moles/Vol]4.4 mmol/LNormal3.4-5.0[facility] Comment on above:Performed By: #### CMP, LIPID, TSH #### [facility] [address] [place] [address] Dr. Chasity GonzalezProtein [Mass/Vol]8.1 g/dLNormal6.1-8.2[facility] Comment on above:Performed By: #### CMP, LIPID, TSH #### [facility] [address] [place] [address] Dr. Chasity Laldium [Moles/Vol]141 mmol/OBgvfde651-125KvoGuernsey Memorial Hospital Comment on above:Performed By: #### CMP, LIPID, TSH #### [facility] [address] [place] [address] Dr. Chasity GonzalezUrea nitrogen [Mass/Vol]16.0 mg/dLNormal7.0-17.0[facility] HospitalComment on above:Performed By: #### CMP, LIPID, TSH #### [facility] [address] [place] [address] Dr. Chasity Gomez nitrogen/Creatinine [Mass ratio]21.9 mg/mgMiami Valley HospitalComment on above:Performed By: #### CMP, LIPID, TSH #### [facility] [address] [place] [address] Dr. Chasity Carpenter [id number] uIU/mLNormal0.470-4.680Gu[facility] Memorial HospitalComment on above:Performed By: #### CMP, LIPID, TSH #### [facility] [address] [place] [address] Dr. Chasity CANO BELOWMiami Valley HospitalComment on above: Result Comment: <0.34 UIU/ml HYPERTHYROID 0.34-5.60 UIU/ml EUTHYROID >5.60 UIU/ml HYPOTHYROIDPerformed By: #### CMP, LIPID, TSH #### [facility] [address] [place] [address] Dr. Chasity Silveira URINEon [id number] URINECulture Observations: NO GROWTH.NormalThe [facility] HospitalComment on above:Performed By: #### URCX #### [facility] [address] [place] [address] Anthony KarenPROTIMEon [id number] Coag (PPP) [Relative time]0.95 {INR}Normal The [facility] HospitalComascension providence [facility] on above:Performed By: #### CBC #### [facility] [address] [place] [address] Anthony LuxenINR GUIDELINESSEE BELOWNoalThVeterans Health AdministrationComment on above: Result Comment: DESIRED INR: 2.0 - 3.0 CONDITIONS NOT LISTED BELOW 2.5 - 3.5 FOR PROSTHETIC HEART VALVE REPLACEMENT 2.5 - 3.5 RECURRENT THROMBOSISPerformed By: #### CBC #### [facility] [address] [place] [address] Anthony KarenPT Coag (PPP) [Time]10.3 sNormal9.0-11.6The [facility] on above:Performed By: #### CBC #### [facility] [address] [place] [address] Anthony LuxenPTTon [id number] Coag (Bld) [Time]26.8 pTejlxq19.3-36.2The [facility] Hospitalment on above:Performed By: #### CBC #### [facility] [address] [place] [address] Anthony KarenCBC AUTO DIFFon [id number] #0.1 103/ulNormal0.0-0.1The [facility] on above:Performed By: #### CBC #### [facility] [address] [place] [address] Anthony KarenBasophils/100 WBC (Bld)1.7 %Normal0.2-2.0The [facility] Comment on above:Performed By: #### CBC #### [facility] [address] [place] [address] Anthony KarenEO #0.3 103/ulNormal0.0-0.7The [facility] HospitalComment on above: Performed By: #### CBC #### [facility] [address] [place] [address] Anthony KarenEosinophils/100 WBC (Bld)4.6 %Normal0.9-7.0The [facility] Comment on above:Performed By: #### CBC #### [facility] [address] [place] [address] Anthony KarenErythrocyte distribution width (RBC) [Ratio]12.8 %Fkrehg54.0-15.0The [facility] HospitalComment on above:Performed By: #### CBC #### [facility] [address] [place] [address] Anthony KarenHematocrit (Bld) [Volume fraction]40.3 %Zbzpbp19.0-48.0The [facility] HospitalComment on above:Performed By: #### CBC #### [facility] [address] [place] [address] Anthony KarenHemoglobin (Bld) [Mass/Vol]13.2 g/bUEvqxba48.0-16.0The [facility] HospitalComment on above:Performed By: #### CBC #### [facility] [address] [place] [address] Anthony KarenIG #0.02 10e3/ulNormal0.00-0.03The [facility] HospitalComment on above:Performed By: #### CBC #### [facility] [address] [place] [address] Anthony KarenIG %0.3 %Normal0.0-0.5The [facility] HospitalComment on above: Performed By: #### CBC #### [facility] [address] [place] [address] Anthony KarenLYMPH #2.5 103/ulNormal1.2-3.8The [facility] Hospitalment on above: Performed By: #### CBC #### [facility] [address] [place] [address] Anthony LuxenLymphocytes/100 WBC (Bld)40.8 %Ucskzv27.5-60.0[facility] Comment on above:Performed By: #### CBC #### [facility] [address] [place] [address] Anthony KarenMANUAL DIFF REQNONormalThe [facility] HospitalComment on above: Performed By: #### CBC #### [facility] [address] [place] [address] Anthony KarenH (RBC) [Entitic mass]29.7 jwKxvgwf88.7-34.0[facility] Comment on above:Performed By: #### CBC #### [facility] [address] [place] [address] Anthony KarenHC (RBC) [Mass/Vol]32.8 g/kPXeqjbs41.9-35.2[facility] Comment on above:Performed By: #### CBC #### [facility] [address] [place] [address] Anthony HazelMCV (RBC) [Entitic vol]90.6 fKCdiour80.0-99.0[facility] Comment on above:Performed By: #### CBC #### [facility] [address] [place] [address] Anthony KarenMONO #0.4 103/ulNormal0.3-0.8The [facility] Hospitalment on above: Performed By: #### CBC #### [facility] [address] [place] [address] Anthony KarenMonocytes/100 WBC (Bld)5.8 %Normal1.7-12.0[facility] Comment on above:Performed By: #### CBC #### [facility] [address] [place] [address] Anthony LuxenNEUT #2.8 103/ulNormal1.4-6.5The Tim HospitalComment on above: Performed By: #### CBC #### [facility] [address] [address] Anthony KarenNeutrophils/100 WBC (Bld)46.8 %Xhlqri29.0-75.0The [facility] Comment on above:Performed By: #### CBC #### [facility] [address] [address] Anthony KarenPlatelet mean volume (Bld) [Entitic vol]9.2 fLCritically low9.5-13.5 The [facility] HospitalComment on above:Performed By: #### CBC #### [facility] [address] [place] [address] Anthony DbgupYSU346 103/elFujcug299-992Ctg [facility] HospitalComment on above: Performed By: #### CBC #### [facility] [address] [place] [address] Anthony KarenRBC4.45 106/ulNormal4.20-5.40The [facility] HospitalComment on above: Performed By: #### CBC #### [facility] [address] [address] Anthony KarenWBC6.1 103/ulNormal4.0-11.0The [facility] HospitalComment on above: Performed By: #### CBC #### [facility] [address] [address] Anthony KarenGLYCOHEMOGLOBIN A1Con [id number] RECOMMENDATIONADA THERAPEUTIC TARGET 6.0 - 7.0 ACTION SUGGESTED > 7.0NormKettering HealthComment on above:Performed By: #### A1C #### [facility] [address] [address] Anthony KarenGlucose [Mass/Vol]114 mg/dLNoAdams County Regional Medical CenterComment on above:Performed By: #### A1C #### [facility] [address] [address] Anthony YgjwfSyE0p (Bld) [Mass fraction]5.6 %Normal<=6.0The [facility] Comment on above:Performed By: #### A1C #### [facility] [address] [address] Anthony KarenLIPID PROFILEon [id number]-HDL RATIO NORMSEE [facility] HospitalComment on above:Result Comment: 3.3 - 4.4 LOW RISK 4.4 - 7.1 AVERAGE RISK 7.1 - 11.0 MODERATE RISK >11.0 HIGH RISKPerformed By: #### CBC #### [facility] [address] [place] [address] Anthony KarenCholesterol [Mass/Vol]201 mg/dLCritically high<=200[facility] HospitalComment on above:Performed By: #### CBC #### [facility] [address] [place] [address] Anthony KarenCholesterol in HDL [Mass/Vol]60 mg/dLMiami Valley Hospital Comment on above:Performed By: #### CBC #### [facility] [address] [address] Anthony KarenCholesterol in LDL [Mass/Vol]124.2 mg/dLMiami Valley Hospital Comment on above:Performed By: #### CBC #### [facility] [address] [place] [address] Anthony KarenCholesterol.total/Cholesterol in HDL [Mass ratio]3.4 {ratio}Normal [facility] HospitalComment on above:Performed By: #### CBC #### [facility] [address] [place] [address] Anthony KarenHDL NORMAL> or = 60 mg/dl - LOW CARDIOVASCULAR RISK <40 mg/dl - HIGH CARDIOVASCULAR RISKMiami Valley HospitalComment on above:Performed By: #### CBC #### [facility] [address] [place] [address] Anthony KarenLDL CALC NORMALSEE [facility] HospitalComment on above: Result Comment: <100 mg/dl OPTIMAL 100 - 129 mg/dl NEAR OR ABOVE OPTIMAL 130 - 159 mg/dl BORDERLINE HIGH 160 - 189 mg/dl HIGH >190 mg/dl VERY HIGHPerformed By: #### CBC #### [facility] [address] [address] Anthony KarenTriglyceride [Mass/Vol]84 mg/dLNormal<=150[facility] Comment on above:Performed By: #### CBC #### [facility] [address] [address] Anthony KarenVLDL CALC16.8 mg/dLNormalThe [facility] HospitalComment on above: Performed By: #### CBC #### [facility] [address] [place] [address] Antohny KarenPROF 14(COMP METB)on [id number] [Mass/Vol]4.1 g/dLNormal 3.5-5.0The [facility] HospitalComment on above:Performed By: #### CBC #### [facility] [address] [place] [address] Anthony KarenAlbumin/Globulin [Mass ratio]1.1 {ratio}NormalGuernsey Memorial Hospital Comment on above:Performed By: #### CBC #### [facility] [address] [place] [address] Anthony KarenALP [Catalytic activity/Vol]43 U/VBvtpfe80-261OyjGuernsey Memorial Hospital Comment on above:Performed By: #### CBC #### [facility] [address] [place] [address] Anthony KarenALT [Catalytic activity/Vol]24 U/LNormal9-52The [facility] Comment on above:Performed By: #### CBC #### [facility] [address] [place] [address] Anthony KarenAnion gap [Moles/Vol]10.8 mmol/LNormalThe [facility] HospitalComment on above:Performed By: #### CBC #### [facility] [address] [place] [address] Anthony KarenAST [Catalytic activity/Vol]15 U/NMchtpo00-65BtjGuernsey Memorial Hospital Comment on above:Performed By: #### CBC #### [facility] [address] [place] [address] Anthony KarenBilirubin [Mass/Vol]0.4 mg/dLNormal0.2-1.3The [facility] Comment on above:Performed By: #### CBC #### [facility] [address] [place] [address] Anthony KarenCalcium [Mass/Vol]9.2 mg/dLNormal8.4-10.2The [facility] Comment on above:Performed By: #### CBC #### [facility] [address] [place] [address] Anthony KarenChloride [Moles/Vol]106 mmol/LBdghfm58-625Qii [facility] Comment on above:Performed By: #### CBC #### [facility] [address] [place] [address] Anthony KarenCO2 [Moles/Vol]31.7 mmol/LCritically high22.0-30.0[facility] HospitalComment on above:Performed By: #### CBC #### [facility] [address] [place] [address] Anthony KarenCreatinine [Mass/Vol]0.79 mg/dLNormal0.52-1.04The [facility] Comment on above:Performed By: #### CBC #### [facility] [address] [place] [address] Anthony KarenEGFR-AF RUSSIAN>60Normal>=60The [facility] HospitalComment on above: Performed By: #### CBC #### [facility] [address] [place] [address] Anthony KarenEGFR-NON AF RUSSIAN>60Normal>=60The [facility] HospitalComment on above:Performed By: #### CBC #### [facility] [address] [place] [address] Anthony KarenGlobulin (S) [Mass/Vol]3.7 g/dLNormalThe [facility] HospitalComment on above:Performed By: #### CBC #### [facility] [address] [place] [address] Anthony KarenGlucose [Mass/Vol]103 mg/kNDsmcir53-486DioGuernsey Memorial HospitalComment on above:Performed By: #### CBC #### [facility] [address] [address] Anthony KarenPotassium [Moles/Vol]4.5 mmol/LNormal3.4-5.0[facility] Comment on above:Performed By: #### CBC #### [facility] [address] [address] Anthony KarenProtein [Mass/Vol]7.8 g/dLNormal6.1-8.2[facility] Memorial HospitalComment on above:Performed By: #### CBC #### [facility] [address] [address] Anthony KarenSodium [Moles/Vol]144 mmol/KZhqnee583-340Rgl [facility] Comment on above:Performed By: #### CBC #### [facility] [address] [place] [address] Anthony KarenUrea nitrogen [Mass/Vol]13.0 mg/dLNormal7.0-17.0[facility] HospitalComment on above:Performed By: #### CBC #### [facility] [address] [place] [address] Anthony KarenUrea nitrogen/Creatinine [Mass ratio]16.5 mg/mgNoAdams County Regional Medical CenterComment on above:Performed By: #### CBC #### [facility] [address] [place] [address] Anthony KarenTSHon 87-60-3343DPS6.676 uIU/mLNormal0.470-4.680The [facility] HospitalComment on above:Performed By: #### CBC #### [facility] [address] [place] [address] Anthony KarenTSH RANGESEE BELOWMiami Valley HospitalComment on above:Result Comment: <0.34 UIU/ml HYPERTHYROID 0.34-5.60 UIU/ml EUTHYROID >5.60 UIU/ml HYPOTHYROIDPerformed By: #### CBC #### [facility] [address] [place] [address] Anthony LuxenCovid-19 PCR (CVDSTATE [facility]FORM SCHOOL FOR BO[facility])on [id number]-CoV-2 (COVID-19) RNA REBECCA+probe Ql (Unsp spec)Not detectedNormalNOT DETECTEDThe [facility] Comment on above:Result Comment: This test is not yet approved or cleared by the [place] FDA. When there are no FDA-approved or cleared tests available, and other criteria are met, FDA can make tests available under an emergency access mechanism called an Emergency Use Authorization (EUA). The EUA for this test is supported by the Research Manager of Health and Human Service's (HHS's) declaration that circumstances exist to justify the emergency use of in vitro diagnostics for the detection and/or diagnosis of the virus that causes COVID- 19. This EUA will remain in effect (meaning [...] of clinical signs and symptoms consistent with SARS-CoV-2.Performed By: #### [facility] [employer] [facility] #### [facility] [address], [place] [address] Anthony Hazel Vital Signs Date TimeVital SignValuePerforming RtjyqciuuXgafwvke49-28-4523 14:12-0400Body vwzesi353.94 cmMariluz Diaz MD Work Phone: [facility]07-28-2025 14:12-0400 Body mass index (BMI) [Ratio]30 kg/o0QvllaaMariluz Diaz MD Work Phone: [facility]07-28-2025 14:12-0400 Body .12 kgMariluz Diaz MD Work Phone: [facility]07-28-2025 14:12-0400 Diastolic blood twjgicnb98 mm[Hg]Mariluz Diaz MD Work Phone: [facility]07-28-2025 14:12-0400 Heart rate81 /minMariluz Diaz MD Work Phone: [facility]07-28-2025 14:12-0400 Respiratory rate12 /Patrice Diaz MD Work Phone: [facility]07-28-2025 14:12-0400 SaO2% (BldA) [Mass fraction]97 %Mariluz Diaz MD Work Phone: [facility]07-28-2025 14:12-0400 Systolic blood zssjipaf630 mm[Hg]Mariluz Diaz MD Work Phone: [facility]01-07-2025 13:38-0500 Body .9 cmMonse Cardenas MD Work Phone: [phone]woodRgpqzghdmf60-62-1774 13:38-0500Body mass index (BMI) [Ratio]29.1 kg/d3XfqsmgMonse Cardenas MD Work Phone: [phone] KirkwoodXcwvnvwuyk68-43-0833 13:38-0500Body girvsz40.85 kgMonse Cardenas MD Work Phone: [facility] KirkwoodPmmpjqwglz52-27-7464 13:38-0500Diastolic blood ejhcarva71 mm[Hg]Monse Cardenas MD Work Phone: [facility] KirkwoodFhedevsoml41-43-4690 13:38-0500Heart rate88 /min Monse Cardenas MD Work Phone: [facility] KirkwoodKtgyiualba17-25-7157 13:38-0500Systolic blood mm[Hg]Monse Cardenas MD Work Phone: [phone] KirkwoodSbcqjeimlr90-92-3842 13:22-0400Body sjqeij395.67 cmF[facility]07-15-2024 13:22-0400Body mass index (BMI) [Ratio]29.9 kg/c1SinrtmutlFayette County Memorial Hospital07-15-2024 13:22-0400Body ykeuwt64.76 kgFayette County Memorial Hospital07-15-2024 13:22-0400Diastolic blood mm[Hg][facility]07-15-2024 13:22-0400 Heart rate85 /minF[facility] Hospital07-15-2024 13:22-0400Systolic blood wzpuhvvw124 mm[Hg][facility]10-31-2023 10:57-0400 Blood Pressure LocationJENNIFER GANESH [facility]10-31-2023 10:57-0400Diastolic blood mm[Hg]STEFFANY GANESH [facility]10-31-2023 10:57-0400Heart rate68 /minJENNIFER GANESH [facility]10-31-2023 10:57-0400Respiratory rate16 /minJENNIFER GANESH [facility]10-31-2023 10:57-0400Systolic blood uykywzfd743 mm[Hg]STEFFANY GANESH [facility]07-13-2023 10:30-0400Body rrljou755.48 cmMariluz Diaz Other [employer] Other 07-13-2023 10:30-0400Body mass index (BMI) [Ratio]27.8 kg/j7XzstgiMariluz Diaz Other [employer] Other 07-13-2023 10:30-0400Body tzvaxg11.95 kgMariluz Diaz Other [employer] Other 07-13-2023 10:30-0400Diastolic blood vogpgqwh31 mm[Hg] Mariluz Diaz Other [employer] Other 07-13-2023 10:30-0400Systolic blood fqqskdag702 mm[Hg] Mariluz Joe Other [place] [employer] Other Encounters Encounter DateEncounter TypeCare ProviderFacilityStart: 05-21-2025 End: 14-49-5453Brktqypq ReferredMariluz Diaz MD-Lab [facility] Work Phone: Start: 05-21-2025 End: 23-67-4505lvbcvrfsnbQgkwww E Braun MD Work Phone: [facility] Work Phone: Start: 05-21-2025 End: 78-82-8518Sdjazdt encounter procedureMariluz Diaz MD-[facility] Work Phone: Start: 04-04-2025 End: 69-96-5763Qmhinx flowsheetAlison L Kari PA Work Phone: noMS TSR DERMStart: 04-04-2025 End: 40-56-7977Zfdxlt flowsheetAlison L Kari PA Work Phone: noMS TSR DERMStart: 04-04-2025 End: 04-54-7542Rbwubl outpatient visit 10 minutesAlison L Kari PA Work Phone: noMS TSR DERMComment on above:Other viral warts (Primary Dx)Start: 04-04-2025 End: 64-61-0141aamjfnjjbaTKNBYO L WINANSNot AvailableStart: 03-05-2025 End: 23-24-0832Rnsvaj flowsheetAlison L Kari PA Work Phone: NOMS TSR DERMStart: 03-05-2025 End: 08-77-0523Eqhqye flowsheetAlison L Kari PA Work Phone: NOMS TSR DERMStart: 03-05-2025 End: 80-13-0975Nrklrls encounter procedureAlison L Kari PA Work Phone: NOMS TSR DERMComment on above:Common wart (Primary Dx); PainStart: 03-05-2025 End: 77-79-2489mamzecvtcsWMQWZG L WINANSNot AvailableStart: 02-02-2025 End: 69-93-4937Pzjpgb flowsheetAlison L Kari PA Work Phone: NOMS TSR DERMStart: 02-02-2025 End: 66-99-1858Nalfhd flowsheetAlison L Kari PA Work Phone: NOMS TSR DERMStart: 02-02-2025 End: 28-64-5156Qnffmke encounter procedureAlison L Kari PA Work Phone: NOTF TSR DERMComment on above:Common wart (Primary Dx); PainStart: 02-02-2025 End: 56-68-3147vihqfruimjMSZCRZ L WINANSNot AvailableStart: 12-25-2024 End: 32-32-8258Vozidc outpatient new 30 minutesAlison L Kari PA Work Phone: NOBR TSR DERMComment on above:Bacterial folliculitis (Primary Dx); Seborrheic keratosis; Melanocytic nevus of trunk; Common wart; PainStart: 12-25-2024 End: 71-34-6126gwfksckgcsFWFATS L WINANSNot AvailableStart: 12-25-2024 End: 86-79-9278Tmsxki flowsheetAlison L Kari PA Work Phone: NOMS TSR DERMStart: 12-25-2024 End: 51-07-7582Nbphej flowsheetAlison L Kari PA Work Phone: NOMS TSR DERMStart: 11-28-2024 End: 41-00-5640Aityfg Rajan Cardenas MD Work Phone: noms CI ENTStart: 11-28-2024 End: 49-27-6027Vlnive Rajan Cardenas MD Work Phone: noms CI ENTStart: 11-28-2024 End: 72-40-4195Afnfuo outpatient visit 15 minutesMonse Cardenas MD Work Phone: NOMS CI ENTComment on above:ETD (Eustachian tube dysfunction), right (Primary Dx); Mixed conductive and sensorineural hearing loss of right ear with restricted hearing of left earStart: 11-28-2024 End: 93-24-9201upwmpphajiGSYRQG H MANNYMISNot AvailableStart: 11-09-2024 End: 13-47-6283Brcpxmlvc Result EncounterMonse Cardenas MD Work Phone: NOZV External Department UnsolicitedStart: 11-09-2024 End: 72-27-0227Shyoyuvgv Result EncounterMonse Cardenas MD Work Phone: noms External Department UnsolicitedStart: 10-31-2024 End: 11-41-7975Fxldfe Rajan Cardenas MD Work Phone: NOMS CI ENTStart: 10-31-2024 End: 97-73-5771Tbvuid Rajan Cardenas MD Work Phone: NOMS CI ENTStart: 10-31-2024 End: 35-93-1861Cmrpam outpatient new 45 minutesMonse Cardenas MD Work Phone: noMS CI ENTComment on above: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); ETD (Eustachian tube dysfunction), rightStart: 10-31-2024 End: 23-04-4684dgoirdprbsQUHABP H MANNYMISNot AvailableStart: 65-95-7531Ukgofvf encounter statusCleveland Clinic Children's Hospital for Rehabilitationtart: 05-08-2024 End: 79-30-0011ybfefbyoutCgebnsmdyCincinnati [facility]rin[facility] Work Phone: Start: 05-08-2024 End: 23-66-0314Dqvqtfibb for general adult medical examination without abnormal findingsCleveland Clinic Children's Hospital for Rehabilitationtart: 05-08-2024 End: 64-06-4298Kuwvsxa encounter procedureFirelands Physician Group-[facility] Work Phone: Start: 08-24-2023 End: 79-75-0203lksdkpzihjEV-C STEFFANY ANDERSENFacility:DOC FayettevilleevueStart: 08-24-2023 End: 19-40-0564Gcxhfhb encounter procedureJENNIFER E GANESH [facility] start: 06-11-2023 End: 37-20-4874onskhceursCnzsqr Diaz Other [employer] Other Start: 36-32-8066Shfuxpnrn encounterMarcia JoeMercy Memorial Hospitaltart: 05-11-2023 End: 98-15-1922bbcrkwsxgsPlgcdx Diaz Other [employer] Other Start: 77-43-2471Cyzpxpofh encounterMarcia JoeMercy Memorial Hospitaltart: 05-06-2023 End: 53-04-6102yikhaldqjqYpbehz Diaz Other [employer] Other Start: 76-08-2138Rxuwtmp encounter procedureMarcia JoeMercy Memorial Hospitaltart: 05-03-2023 End: 05-06-6503uapikokwdpYoosgyce Gabino Other [employer] Other Start: 15-86-3512Lureug outpatient visit 15 minutes Priyank GabinoMercy Memorial Hospitaltart: 68-35-8973Kejxguhil for general adult medical examination without abnormal findingsDR MARILUZ Ross [facility] Hospitaltart: 12-12-2021 End: 42-80-7985mjllwbouabJB MARCIA E BRAUNFacility:L9Pymig: 12-11-2021 End: 85-14-0812agdditchwdWE MARCIA E BRAUNFacility:Z4Nccxf: 12-11-2021 End: 76-83-7412Cuejuxdcm for general adult medical examination without abnormal findingsDR MARILUZ DIAZFacility:K4Rxxgn: 08-15-2021 End: 18-12-2543njtpmdjxrnPI MARILUZ DIAZFacility:Y5Eyvnu: 05-29-2021 End: 93-45-3553vtuxtjxeipJX LINDA WATERSFacility:L6Shcpz: 33-70-0196Ahyariecg for other preprocedural examinationDR LINDA [facility] HospitalStart: 04-47-2710Htndsuxvv for preprocedural cardiovascular examinationDR LINDA [facility] HospitalStart: 31-31-2015Fultqwaxv for preprocedural laboratory examinationDR LINDA [facility] HospitalStart: 05-19-2021 End: 60-43-4812flknnqjasmUV LINDA WATERSFacility:D3Unkbb: 05-19-2021 End: 68-38-1608Iftcmmato for preprocedural laboratory examinationDR LINDA JACOBOFacility:V2Etmxu: 05-02-2021 End: 26-64-6865ixiarqcmcsFE MARILUZ Buenrostro JOEFacility:F0Ckflj: 01-20-2021 End: 60-53-2127tbzgbvywqgVD LINDA WATERSFacility:H2Yemfy: 01-15-2021 End: 30-65-4233lvequzqdhyUG LINDA WATERSFacility:H1 Procedures DateProcedureProcedure DetailPerforming ClinicianStart: 55-37-3841QNHBAUDXYEL SKIN LESIONAlison L Kari PA Work Phone: Start: 77-55-1522TPLKVJLXKQG SKIN LESIONAlison L Kari PA Work Phone: Start: 03-40-6233BSOCMEEJAPY SKIN LESIONAlison L Kari PA Work Phone: Start: 42-07-9360SSO HEAD/BRAIN WO/W Jeromy Cardenas MD Work Phone: Start: 17-87-1478WLF Torres Cardenas MD Work Phone: Start: 27-17-9629FqzqgoefvVNVYDKPO GANESH Start: 51-14-0718Yyecysngoqjgofewp with dilation of urethral strictureJENNIFER GANESH Start: 05-21-9733CahqzwagplhTUCNGHPG GANESH AppendectomyJENNIFER GANESH Bilateral tubal ligationJENNIFER GANESH Comment on above:sCholecystectomyJENNIFER GANESH Plan of Treatment DateCare ActivityDetailAuthorStart: 12-26-2025 End: 43-85-8900Uznvbah encounter procedureNOMS TSR DERMStart: 05-21-2025 [facility] Rehabilitationtart: 05-02-2025 End: 85-64-1812Fvdhlxn encounter eixypcpny64/09/2025 1:00 PM EDT Office Visit [facility] [address] [place] [address] Attila Alvarado, PA [address] [place] [address] [facility] TSR DERMStart: 04-04-2025 End: 82-33-0416Qfevzir encounter procedureNOMS TSR DERMComment on above:Arrived Start: 03-05-2025 End: 60-43-2957Ciekxhk encounter procedureNOMS TSR DERMComment on above:Arrived Start: 02-02-2025 End: 18-70-7747Cicqyoq encounter procedureNOMS TSR DERMComment on above:Arrived Start: 12-25-2024 End: 88-38-5640Zkgqycq encounter procedureNOMS TSR DERMComment on above:Arrived Start: 11-28-2024 End: 65-84-1029Ovxqfin encounter procedureNOMS CI ENTComment on above:Arrived Start: 10-31-2024 End: 89-66-9038Ljhoiuo encounter dgrbfdwbi05/07/2025 1:40 PM EST Office Visit [facility] [address] [facility] [address] [place] [address] Monse Cardenas MD [address] [facility] [address] [place] [address] ArrivedNOMS CI ENTComment on above:ArrivedChlamydia trachomatis rRNA [Presence] in Cervix by REBECCA with probe detectionFayette County Memorial HospitalComprehensive metabolic 2000 panel - Serum or Plasma [facility] HospitalHuman papilloma virus 16+18+31+33+35+39+45+51+52+56+58+59+66+68 DNA [Presence] in Cervix by Probe with signal amplificationFayette County Memorial HospitalMG Breast - bilateral ScreeningFayette County Memorial HospitalNeisseria gonorrhoeae rRNA [Presence] in Cervix by REBECCA with probe detectionF[facility] Hospital Trichomonas vaginalis rRNA [Presence] in Unspecified specimen by REBECCA with probe detectionFayette County Memorial HospitalXR Foot - right GE 3 ViewsAdventHealth Oviedo ER Immunizations Immunization DateImmunizationNotesCare LlqbibszFmueqedm82-11-8015PEIQ-EhX-3 (COVID-19) mRNA-1273 vaccineJENNIFER GANESH [facility]01-27-2021SARS-CoV-2 (COVID-19) mRNA-1273 vaccineJENNIFER GANESH [facility]01-18-2021SARS-CoV-2 (COVID-19) mRNA-1273 vaccineJENNIFER GANESH [facility]12-30-2020SARS-CoV-2 (COVID-19) mRNA-1273 vaccineJENNIFER GANESH [facility]12-29-2020SARS-CoV-2 (COVID-19) mRNA-1273 vaccineJENNIFER GANESH [facility]11-14-2018influenza virus vaccine, unspecified formulationSTEFFANY ANDERSEN [facility] Payers DatePayer CategoryPayerPolicy [id number] Health InsuranceAARP [id number] [id number] 2023MedicareMEDICARE ..[id number] [id number]-[id number] 840.1.546090.3.57[id number] 2.16840.1.504073.3.57[id number] 2.16840.1.532025.3.57[id number] 2.840.1.993295.3.57[id number] 2.840.1.509007.3.57[id number] 2.0.1.067104.3.57[id number] 2.0.1.012391.3.57[id number] 2.0.1.073664.3.57[id number] 2.0.1.087042.3.57[id number] 2.0.1.338147.3.57[id number] 2.0.1.781963.3.57[id number] 2.0.1.461265.3.57[id number] 2.840.1.004372.3.57[id number] 2.840.1.32[id number] 2.840.1.890548.3.579.2.593 [id number] 2.16.840.1.664079.3.579.2.531 Social History DateTypeDetailFacilityStart: 10-31-2024 End: 29-24-7408Qzi [facility]igned At [facility]tart: 53-73-4471Pyakdkm smoking statusEx-smoker (finding)[facility] Hospitaltart: 21-69-9203Hihkwkk smoking statusNever [facility] Hospitaltart: 23-31-9600Iuz Assigned At [facility] CenterFeMercer County Community HospitalTobacco smoking status NHISTobacco smoking consumption unknownNOMS HealthcareStart: 61-93-2504Qzt assigned at [facility] stanlyNot on fileNOMS HealthcareStart: 10-31-2024 End: 84-84-2820Rqbgdmz smoking status NHISNever smoked tobaccoNOMS Healthcare Start: 36-81-1571Qtbcsxp use and exposureSmokeless tobacco non-userNOMS HealthcareStart: 10-31-2024 End: 19-24-7016Vytjycsui beverage intakeCurrent drinker of alcohol (finding)NOMS HealthcareStart: 10-31-2024 End: 41-02-5303Eubtjhd of Social functionNOMS HealthcareSexFemale (finding) [facility] Functional Status ZgcxXwhhgihbkqSyhirvEmrxwizd52-88-6213Iihcrvsykb StatusN/AExec[facility] Clinical Notes 05-03-2023 to 05-21-2025 Note Date & BcbzUvvgRjgelzfg26-37-2644 Evaluation note* Diagnosis Onset Date Resolution Status Admit Date Right foot pain acuteJuly 2024 2:04pm [facility] Work Phone: 1(271) 321-523306-11-2025 History of Present illness Narrative* JAKE Angelo - 04/04/2025 2:00 PM EDT Follow up Diagnosis: Warts Location: left heel [...] Next Visit: as scheduled documented in this encounterSaint Joseph Hospital of KirkwoodAkybdpmvko20-13-7429 History of Present illness Narrative* JAKE Angelo - 03/05/2025 1:10 PM EDT Images from the original note were not [...] counseled regarding warts. Treatment options were discussed includingcryotherapy, shelbie antigen injections, and topical Cantharidin. It was explained that it typically requires multiple treatments before the wart(s) completely resolve. The importance of following upevery 3-4 weeks was emphasized. Encouraged OTC wart removers in between appointments to hasten resolution. Patient elected for cryotherapy today, see procedure note. Diagnosis: Verruca Indication: Inflamed Consent: Verbal consent was obtained and risks were discussed, including, but not limited to risks of scarring, darker or toilet and laundry soap supervisor pigmentary changes, recurrence, incomplete removal and infection. [...] Next Visit: 1 month documented in this encounterSaint Joseph Hospital of KirkwoodXaylxydhvy20-78-8820 History of Present illness Narrative* JAKE Angelo - 02/02/2025 9:30 AM EDT Images from the original note were not [...] the wart(s) completely resolve. The importance of followingup every 3-4 weeks was emphasized. Encouraged OTC wart removers in between appointments to hasten resolution. Patient elected for cryotherapy today, see procedure note. Diagnosis: Verruca Indication: Inflamed Consent: Verbal consent was obtained and risks were discussed, including, but not limited to risks of scarring, darker or toilet and laundry soap supervisor pigmentary changes, recurrence, incomplete removal and infection. [...] Next Visit: 1 month documented in this encounterSaint Joseph Hospital of KirkwoodFtnqncqrmo88-05-6387 History of Present illness Narrative* JAKE Angelo - 12/25/2024 2:50 PM EST Images from the original note were not included. Skin Check Location: Patient requests a full body skin examination Dermatologic history: no history of skin cancer, no history of atypical moles, no family history ofmelanoma Last visit: First skin exam New patient [...] the wart(s) completely resolve. The importance of followingup every 3-4 weeks was emphasized. Encouraged OTC wart removers in between appointments to hasten resolution. Patient elected for cryotherapy today, see procedure note. Diagnosis: Verruca Indication: Inflamed Consent: Verbal consent was obtained and risks were discussed, including, but not limited to risks of scarring, darker or toilet and laundry soap supervisor pigmentary changes, recurrence, incomplete removal and infection. [...] (warts)//1 year (skin exam) documented in this encounterSaint Joseph Hospital of KirkwoodVqvbgfatwo60-38-0380 History of Present illness Narrative* Monse Cardenas MD - 11/28/2024 1:30 PM EST Subjective Patient ID: Arlene Jack is a 64 y.o. female who presents for Ear Problem (Hearing loss per manufacturing controller) No AN evident on pt's MRI. Still [...] a RT hearing aid documented in this encounterSaint Joseph Hospital of KirkwoodTqoahchmnw26-31-1231 History of Present illness Narrative* Monse Cardenas MD - 10/31/2024 1:40 PM EST Subjective Patient ID: Arlene Jack is a 64 y.o. female who presents for Hearing Loss Pt has been followed by an manufacturing controller since 2021. 12/2021 audio showed essentially normal [...] to tx her ETD documented in this encounterSaint Joseph Hospital of KirkwoodHyxupcwpow93-56-5830 Hospital Discharge instructions Patient Education 08/24/2023 11:29:02 [...] camera on the end (urethroscope) is used tolook at the urethra. How is this treated? [...] reconstructed. Follow these instructions at home: Take ylwz-sfe-jmhbcyl and prescription medicines only as told by your health care provider. If you were prescribed an antibiotic medicine, take it as told by your health care provider. Do notstop taking the antibiotic even if you start [...] provider. Document Revised: 08/18/2022 Document Reviewed: 08/18/2022 [employer] Patient Education 2022 Action. Follow Up Care 07/30/2023 08:37:43 With:STEFFANY ANDERSEN PA-C, URL Address: [address] [place] [address] [phone] When: only if needed [facility] 07-13-2023 Evaluation note* Encounter Date Diagnosis Assessment Notes Treatment Notes Treatment Clinical Notes Apr, Medicare annual wellness visit, initial (ICD-10 - Z00.00) Apr,Screening mammogram for breast cancer (ICD-10 - Z12.31) Apr,TIA (transient ischemic attack) (ICD-10 - G45.9) Apr,ronchitis (ICD-10 - J40)Finish zpack tomorrow. Recommend flonase for plugged R ear. Will call if cough continues. Apr,OtherPersonalized health advice was given to the beneficiary including a written plan for screenings discussed and provided. Advanced care planning reviewed and/or information given as requested. Additional counseling was provided here today in regards to, [ ]. The above visit was performed by Dr. Diaz. Document reviewed and amended by provider signed below. [employer] Other 07-13-2023 Evaluation note* Encounter Date Diagnosis Assessment Notes Treatment Notes Treatment Clinical Notes Apr, Medicare annual wellness visit, initial (ICD-10 - Z00.00) Apr,Screening mammogram for breast cancer (ICD-10 - Z12.31) Apr,ronchitis (ICD-10 - J40)Finish zpack tomorrow. Recommend flonase for plugged R ear. Will call if cough continues. Apr,History of TIA (transient ischemic attack) (ICD-10 - Z86.73)Will assess labs. No further symptoms. Apr,OtherPersonalized health advice was given to the beneficiary including a written plan for screenings discussed and provided. Advanced care planning reviewed and/or information given as requested. Additional counseling was provided here today in regards to, [ ]. The above visit was performed by Dr. Diaz. Document reviewed and amended by provider signed below. [employer] Other 07-10-2023 Evaluation note* Encounter Date Diagnosis Assessment Notes Treatment Notes Treatment Clinical Notes Apr, Acute non-recurrent maxillary si nusitis (ICD-10 - J01.00) Instructed to use Robitussin or Mucinex for cough, saline or Flonase NS for congestion, Tylenol forpain and fever. [employer] Other Evaluation + Plan note No data available for this section [facility] evaluation noteNo InformationN[employer] Other Evaluation note* Diagnosis Onset Date Resolution Status Elevated fasting glucose acuteScreening mammogram for breast canceracuteUniversity [facility]als [facility] Work Phone: Evaluation note* Diagnosis Mixed conductive [...] Pain Generalized pain documented in this encounter [facility] HealthcareEvaluation note* Diagnosis Other viral warts- Primary documented in this encounter [facility] HealthcareEvaluation note* Diagnosis Onset Date Resolution Status Admit Date Right foot pain acuteJuly 2024 2:04pm [facility] Work Phone: History general Narrative - Reported* Type Description Date Medical History Incontinence in female Medical HistoryLeft medial knee painMedical HistoryTIA (transient ischemic attack)Surgical HistoryCHOLECYSTECTOMYSurgical HistoryBLADDER SURGERYSurgical HistoryTUBAL LIGATIONSurgical HistoryAPPENDECTOMYHospitalization HistorySEE SURGICAL HX [place] [employer] Other Progress note No data available for this section [facility] reason for referral (narrative)No reason for referral information availablePremier Health [facility] Work Phone: Summary Purpose Family History Relationship Condition Age at Onset Recorded Date/T nette brother History of stroke Unknown fatherMalignant neoplasmUnknownDeceasedUnknownmotherDeceasedUnknownDiabetes mellitusUnknownsisterDiabetes mellitusUnknown Advance Directives Advance Directive Response Recorded Date/ Time Advance Directives No May 08 1:14pm Chief Complaint and Reason for Visit Chief Complaint wellness Reason for Visit Elevated fasting glu cose Screening mammogram for breast cancer Wellness examination Chief Complaint Admit Date Wellness, PAP May 21, 2025 2:04 pm Reason for Visit Admit Date Right foot pain May 21, 2025 2:04 pm Additional Source Comments INFORMATION SOURCE (unrecogn ized section and content) DATE CREATED AUTHOR 12/17/2021 [facility] DATE CREATED AUTHOR AUTHOR'S ORGANIZ ATION 08/26/2023 [facility] DATE CREATED AUTHOR AUTHOR'S ORGANIZ ATION 04/07/2025 [facility] DATE CREATED AUTHOR AUTHOR'S ORGANIZ ATION 06/02/2025 [facility] REASON FOR VISIT (unrecogniz ed section and content) ReasonCommentsHearing LossReasonCommentsEar ProblemHearing loss per manufacturing controller ReasonCommentsSkin CheckReasonCommentsVerrucous VulgarisReasonCommentsFollow-up Patient Care team informatio n (unrecognized section and content) Team Status: Active Member Role Status Dates Mariluz Diaz MD Primary Care Provider Active Team Status: Inactive Member Role Status Dates Mariluz Diaz MD Primary Care Provide r, Attending Provider Active Start: May 08, 2024 End: May 08, 2024Team MemberRelationshipSpecialtyStart DateEnd Date Mariluz Diaz MD [address] [phone] [facility] Xorqxodd62/27/24Team MemberRelationshipSpecialtyStart Date End Date Mariluz Diaz MD [address] [phone] PCP - GeneralFami Qsnxnuco37/27/24Team MemberRelationshipSpecialtyStart Date End Date Mariluz Diaz MD [address] [place] [address] PCP - GeneralFamily Ncnrqojl95/27/24Team MemberRelationshipSpecialtyStart Date End Date Mariluz Diaz MD [address] [facility] [place] [address] PCP - [facility]09/20/24Team MemberRelationshipSpecialtyStart Date End Date Mariluz Diaz MD [address] [place] [facility] [place] [address] PCP - [facility]09/20/24Team MemberRelationshipSpecialtyStart Date End Date Mariluz Diaz MD [address] [facility] [place] [phone] PCP - [facility]09/20/24Team MemberRelationshipSpecialtyStart Date End Date Mariluz Diaz MD PCP - [facility]09/20/24Team MemberRelationshipSpecialtyStart Date End Date Mariluz Diaz MD PCP - [facility]09/20/24Team MemberRelationshipSpecialtyStart Date End Date Mariluz Diaz [facility] - [facility]24Team MemberRelationshipSpecialtyStart Date End Date Mariluz Diaz [facility]24 Team Status: Inactive Member Role Status Dates Mariluz Diaz MD Primary Care Provider Active Start: May 21, 2025 End: May 21, 2025Mariluz Diaz MDA[facility] ProviderActiveStart: May 21, 2025 End: May 21, 2025 Team Status: Inactive Member Role Status Dates Mariluz Diaz MD Attending Provider Active St art: May 21, 2025 End: May 21, 2025Team MemberRelationshipSpecialtyStart DateEnd Date Mariluz Diaz MD [address] [place] [address] PCP - GeneralFamily Veecjqud05/27/24 Goals (unrecognized section and content) Goals may [...] BE BASED ON THE PRIMARY CLINICAL RECORDS. [employer] provides no warranty or guarantee of the accuracy or completeness of information in this document.
--- OUTSIDE RECORDS SUMMARY | 2025-09-17 14:30 | XMS_ITS | Clinical Summary ---
Author Organization [facility] Address [address] [place] [address] Phone Care Team Providers Care Campaign Director Name Role Phone Unavailable Primary Care Provider Unavailabl e Social History Tobacco UseTypesPacks/DayYears UsedDateSmoking Tobacco: Never Assessed CommentsUnknownSex and Gender InformationValueDate RecordedSex Assigned at Not on fileLegal MkcHhtenx01/25/2022 12:51 PM ESTGender IdentityNot on file Sexual OrientationNot on file Plan of Treatment Not on file
--- OUTSIDE RECORDS SUMMARY | 2025-09-17 14:30 | XMS_ITS | Clinical Summary ---
Author Organization [facility] Address [address] [place] [address] Care Team Providers Care Service Director Name Role Phone Mariluz Booker MD Primary Care Provider [phone] Allergies No known active allergies Medications MedicationSigDispense QuantityRefillsLast FilledStart DateEnd DateStatus fluticasone (Flonase) 50 MCG/ACT nasal spray Indications:ETD (Eustachian tube dysfunction), right2 sprays on left twice daily. Shake gently. Before first use, prime pump. After use, clean tip and r eplace cap. 48 g 5Active Active Problems No known active problems Family History Medical HistoryRelationNameCommentsMelanomaNeg Hx Social History Tobacco UseTypesPacks/DayYears UsedDateSmoking Tobacco: NeverSmokeless Tobacco: Never Tobacco Cessation:Counseling Given: Not Answered Alcohol UseStandard Drinks/WeekCommentsYes0 (1 standard drink = 0.6 oz pure alcohol)CommentsUnknownSex and Gender InformationValueDate RecordedSex Assigned at BirthNot on fileLegal ZwcNitvrs85/15/2023 6:37 PM EDTGender Identity Not on fileSexual OrientationNot on file Last Filed Vital Signs Vital SignReadingTime TakenCommentsBlood Ipiazzqw294/6602 2:11 PM EST Nzpbc282511/28/2024 2:11 PM ESTTemperature--Respiratory Rate--Oxygen Saturation-- Inhaled Oxygen Concentration--Iyvgeo77.9 kg (154 lb)11/28/2024 2:11 PM ESTHeight 154.9 cm (5' 1 )11/28/2024 2:11 PM ESTBody Mass Index29. 2:11 PM EST Plan of Treatment DateTypeDepartmentCare Team (Latest Contact Info)Rkodbiuxdxh08/04/2026 1:10 PM ESTOffice Visit [facility] [address] [place] [phone] Bridgette Pierce, [place] [address] [place] [address] Insurance Care Teams Team MemberRelationshipSpecialtyStart DateEnd Date Mariluz Booker MD [address] [place] [address] PCP - GeneralFamily Ugzankps16/27/24
== END 2025-09-17 14:23 | disposition home or self-care (01) ==
LOC: RAD 14:23
PROVIDERS: PCP Family Medicine; Visit Provider Family Medicine
DX: M75.81 Other shoulder lesions, right shoulder (principal)
CPT/HCPCS: 73030